=== PATIENT | female | born 1945 | race Two or more races ===

== ENCOUNTER 2020-06-12 08:34 | Outpatient (REF) | payer MEDICARE, SELFPAY ==
--- NOTE | 2020-06-12 08:41 | MM_ITS ---
EXAMINATION: MM SCREENING DIGITAL BREAST TOMOSYNTHESIS, BILATERAL CLINICAL INFORMATION: Screening. Asymptomatic. The lifetime risk of breast cancer based on the Tyrer-Cuzick Model is 4%. COMPARISON: Mammography: 06/10/2019, 06/04/2018 TECHNIQUE: Digital breast tomosynthesis is performed in both the craniocaudal and mediolateral oblique views along with computer-aided detection (CAD). Synthesized 2D images are generated from the tomosynthesis. Additional left MLO view is provided. FINDINGS: There are scattered areas of fibroglandular density (ACR BI-RADS breast composition Category b). There are no significant masses, abnormal calcifications, or other abnormalities. Parenchymal pattern is similar to prior studies. No developing density. No significant changes. MM/MM tomosynthesis screening BI IMPRESSION: No mammographic evidence of malignancy. ASSESSMENT: BI-RADS 1: Negative RECOMMENDATION: Routine annual mammography screening. This patient's information was entered into a reminder system with a target due date for their next mammogram.
== END 2020-06-12 08:35 | disposition home or self-care (01) ==
LOC: HO.MAMMO 08:34
PROVIDERS: PCP Family Medicine; Visit Provider Obstetrics & Gynecology
DX: Z12.31 Encounter for screening mammogram for malignant neoplasm of breast (principal)
CPT/HCPCS: 77063; 77067

== ENCOUNTER 2021-09-25 07:48 | Outpatient (REF) | payer MEDICARE, SELFPAY ==
--- NOTE | ~2021-09-25 | MM_ITS ---
EXAMINATION: BONE DENSITOMETRY CLINICAL INDICATION: Menopause. COMPARISON: Previous BD dated 06/04/2018 and baseline BD dated 07/03/2007. TECHNIQUE: Using a [employer] DXA System (software version: 13.1) manufactured by [employer], dual-energy x-ray absorptiometry was performed of the lumbar spine and left hip. The images are of good technical quality. Summary results are attached. FINDINGS: AP SPINE L3-L4 (excluding L1 and L2): The data of L1-L4 has been changed to exclude the L1 and L2 vertebral bodies, because degenerative changes at these levels may cause overestimation of lumbar spine density. Current: BMD 1.049 g/cm2, Z-score 0.2, T-score -1.3, osteopenia, 5.8% decrease from previous, 9.3% decrease from baseline (<5% change is not significant). Prior: BMD 1.114 g/cm2. Baseline: BMD 1.157 g/cm2. LEFT FEMUR, NECK: Current: BMD 0.819 g/cm2, Z-score 0.1, T-score -1.6, osteopenia. Prior: BMD 0.836 g/cm2. Baseline: BMD 0.910 g/cm2. LEFT FEMUR, TOTAL: Current: BMD 0.879 g/cm2, Z-score 0.5, T-score -1.0, normal, 3.8% decrease from previous, 12.1% decrease from baseline (<5% change is not significant). Prior: BMD 0.914 g/cm2. Baseline: BMD 1.000 g/cm2. IDENTIFIED RISK FACTORS: Thiazide. Menopause. HISTORY OF FRACTURE: None listed. MEDICATIONS: Calcium supplement and/or multivitamin. Vitamin D. MM/XR DEXA axial skeleton IMPRESSION: 1. DIAGNOSIS: Osteopenia based on the lowest T-score value of -1.6 in the femoral neck applying World Health Organization criteria. 2. 10-YEAR FRACTURE RISK PREDICTION, FRAX: Major osteoporotic fracture (clinical spine, forearm, hip or shoulder) 6.3%. Hip fracture 1.3%. 3. Treatment Recommendations: NOF guidelines recommend consideration for treatment in postmenopausal women and men age 50 and older presenting with the following: -A hip or vertebral (clinical or morphometric) fracture. -T-score less than or equal to -2.5 at the femoral neck or spine after appropriate evaluation to exclude secondary causes. -Low bone mass at the hip or spine and a 10-year fracture probability by FRAX of greater than or equal to 3% for hip fracture or greater than or equal to 20% for major osteoporotic fracture based on the [place] adapted WHO algorithm. 4. Other Recommendations: All treatment decisions require clinical judgment and consideration of individual patient factors, including patient preferences, comorbidities, previous drug use, risk factors not captured in the FRAX model (e.g. frailty, falls, vitamin D deficiency, increased bone turnover, interval significant decline in bone density) and possible under or overestimation of fracture risk by FRAX. Additional medical evaluation for secondary cause of low bone mineral density may be appropriate. FUTURE SCAN RECOMMENDATION: People with diagnosed cases of osteoporosis or at high risk for fracture should have regular bone mineral density tests. For patients eligible for Medicare, routine testing is allowed once every 2 years. The testing frequency can be increased to one year for patients who have rapidly progressing disease, those who are receiving or discontinuing medical therapy to restore bone mass, or have additional risk factors.
--- NOTE | ~2021-09-25 | MM_ITS ---
EXAMINATION: MM SCREENING DIGITAL BREAST TOMOSYNTHESIS, BILATERAL CLINICAL INFORMATION: Screening. Asymptomatic. The lifetime risk of breast cancer based on the Tyrer-Cuzick Model is under 2%. COMPARISON: Mammography: 06/12/2020, 06/10/2019, 06/04/2018 TECHNIQUE: Digital breast tomosynthesis is performed in both the craniocaudal and mediolateral oblique views along with computer-aided detection (CAD). Synthesized 2D images are generated from the tomosynthesis. FINDINGS: There are scattered areas of fibroglandular density (ACR BI-RADS breast composition Category b). There are no significant masses, abnormal calcifications, or other abnormalities. Parenchymal pattern is similar to prior studies. There is no developing density or architectural abnormality. The axilla and skin contours are unremarkable. No significant changes. MM/MM tomosynthesis screening BI IMPRESSION: No mammographic evidence of malignancy. ASSESSMENT: BI-RADS 1: Negative RECOMMENDATION: Routine annual mammography screening. This patient's information was entered into a reminder system with a target due date for their next mammogram.
== END 2021-09-25 07:49 | disposition home or self-care (01) ==
LOC: HO.MAMMO 07:48
PROVIDERS: PCP Nurse Practitioner Primary Care; Visit Provider Nurse Practitioner Primary Care
DX: Z12.31 Encounter for screening mammogram for malignant neoplasm of breast (principal); Z78.0 Asymptomatic menopausal state; M85.80 Other specified disorders of bone density and structure, unspecified site; Z79.899 Other long term (current) drug therapy
CPT/HCPCS: 77063; 77067; 77080

== ENCOUNTER 2021-11-30 13:30 | Emergency (ER) | payer OTHER, MEDICARE, SELFPAY ==
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
[2021-11-30 13:36] VITALS: BP 159/61; PULSE 84; RESP 17; TEMP 36.7; O2SAT 96; BMI 27.4
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
[2021-11-30] MEDS: Acetaminophen 325 MG TABLET 975 MG PO (15:05)
[2021-11-30] MEDS: Ibuprofen 400 MG TABLET PO (15:06)
== END 2021-11-30 16:31 | disposition home or self-care (01) ==
PROVIDERS: Emergency Provider Student in an Organized Health Care Education/Training Program; PCP Nurse Practitioner Primary Care
DX: Z04.1 Encounter for examination and observation following transport accident (principal); M25.511 Pain in right shoulder; M79.18 Myalgia, other site; M25.561 Pain in right knee; M25.562 Pain in left knee
CPT/HCPCS: 70450; 72125; 73030; 99282; 99284

== ENCOUNTER 2022-10-07 08:41 | Outpatient (REF) | payer MEDICARE, SELFPAY ==
--- NOTE | ~2022-10-07 | MM_ITS ---
EXAMINATION: MM SCREENING DIGITAL BREAST TOMOSYNTHESIS, BILATERAL CLINICAL INFORMATION: Screening. Asymptomatic. The lifetime risk of breast cancer based on the Tyrer-Cuzick Model is 1%. COMPARISON: Mammography: 09/25/2021, 06/12/2020, 06/10/2019 TECHNIQUE: Digital breast tomosynthesis is performed in both the craniocaudal and mediolateral oblique views along with computer-aided detection (CAD). Synthesized 2D images are generated from the tomosynthesis. Additional right MLO view is provided. FINDINGS: There are scattered areas of fibroglandular density (ACR BI-RADS breast composition Category b). There are no significant masses, abnormal calcifications, or other abnormalities. No architectural abnormality or developing density or significant change from prior studies. The axilla and skin contours are unremarkable. MM/MM tomosynthesis screening BI IMPRESSION: No mammographic evidence of malignancy. ASSESSMENT: BI-RADS 1: Negative RECOMMENDATION: Routine annual mammography screening. This patient's information was entered into a reminder system with a target due date for their next mammogram.
== END 2022-10-07 08:42 | disposition home or self-care (01) ==
LOC: HO.MAMMO 08:41
PROVIDERS: PCP Nurse Practitioner Primary Care; Visit Provider Nurse Practitioner Primary Care
DX: Z12.31 Encounter for screening mammogram for malignant neoplasm of breast (principal)
CPT/HCPCS: 77063; 77067

== ENCOUNTER 2023-06-05 10:39 | Outpatient (AMB) | payer MEDICARE, SELFPAY ==
--- NOTE | 2023-06-05 10:56 | A.OFFVIS_ITS ---
Intake Vital Signs 3 06/05/23 11:12 Height 5 ft 2 in Weight 146 lb 6.191 oz BMI 26.8 BP 130/60 Blood Pressure Location Lt brachial Position Sitting Pulse 86 Intake Visit Reasons: GERD, Adenomatous polyps Intake Note: Patient presents to in office visit today as a new patient for GERD. CC: Patient c/o GERD, heartburn, and constipation. Denies other GI symptoms today. Zoning Administrator Required: Yes Allergies No Known Allergies Allergy (Verified 06/05/23 11:14) NOT APPLICABLE HPI GERD, Adenomatous polyps 2 HPI0 Details 77-year-old female here for initial eval uation of GERD and history of colon polyps. She is referred by Mary Campo of [facility]. PMX Asthma Hypertension tremor Seizure disorder GERD History of tubular adenomas * SURGICAL HISTORY Abdominal surgery in youth Colonoscopy 2016 * ALLERGIES: NKDA * Labs supplied by PCP: 11/18/2022 hemoglobin A1c 5.5%. TSH 1.7 unremarkable renal panel, unremarkable hepatic, normal hemoglobin and hematocrit without a complete CBC 2016 scope-Hanson PROCEDURE IN DETAIL: Digital rectal exam revealed no specific lesion. Videocolonoscope was introduced without difficulty. It was navigated into the rectosigmoid sigmoid. There was mild redundancy in this area. The prep was good to excellent. Diffuse melanosis coli was noted. There were scattered diverticula in the sigmoid colon. Scope was advanced through descending to transverse colon. There was a polyp identified in the transverse colon, which was removed with excision and cold biopsy forceps. Scope continued to be advanced and was advanced through proximal transverse, hepatic flexure, and ascending colon, down into the cecal cap. Appendiceal orifice was seen. Ileocecal valve was well seen. No mucosal abnormalities were appreciated. Slow withdrawal of the scope, there was a 0.6 to 1 cm flat polyp identified in the folds of the hepatic flexure. This was initially endomarked with slight lift of the polyp, removed with small hexagonal clip. Erbe cautery was used. Polyp specimen was retrieved. There was re-apposition of the mucosal base of the polyp with use of resolution clip with a twist maneuver. The area was clean. The scope continued to be withdrawn. Anorectal verge was clear. GENERAL IMPRESSION: 1. Colonic polyps. 2. Diverticulosis. 3. Changes consistent with melanosis col i. PLAN: The patient will be re-seen back in our office in approximately 4 weeks. Repeat colon cancer screening in this patient should be 5 years. Antonio Hanson MD cc: MAYCOL EDWARDS NP 03/13/ 03/13/17 Received: 03/13/17 0 Submitted by: ANTONIO EDOUARD MD MATERIAL RECEIVED: 0 A. PROXIMAL TRANSV ERSE COLON POLYP B. POLYP AT HEPATI C FLEXURE -- DIAGNOSIS A. FRAGMENTS OF T UBULAR ADENOMA. B. FRAGMENTS OF T UBULAR ADENOMA. TODAY'S VISIT Citizen [place] #Denis Ospina She is here with a female friend who is quiet. She tells me that she is here to check my acid reflex. She is on nexium 20mg qd and takes it every day, but finds that if she eats she needs to take another 1 and then she will run out have to buy it [id number]. This is how her heartburn has been over the years and she does not feel like it has worsened recently. She has not gained or lost weight per her report in fact, looking at the record it looks like she might have lost 10 lb since 2017. She has never been educated about GERD diet and lifestyle changes that need to occur her to best manage it and I will print her a food list from the clinical nutrition source. To start will get H pylori stool in a barium swallow to evaluate if there is any physiologic reason why we need to do an upper endoscopy. She says she has had an upper endoscopy in the past but I can not find 1 anywhere on record. I will order an EGD/colonoscopy, a barium swallow and an HP stool nd increase the esompearozle to 40mg qd. She had no problems wtih the prep or procedure in 2017. There are no prior problems with anesthesia or sedation. Her asthma is well controlled as is her seizure disorder and she denies any cardiac problems. No ID problems. Her parents of CRC and she has a hx of TA. ROV 6 weeks to eval med changes. [facility] Surgical History (Updated 06/05/23 @ 12:24 by JOSIAH Durant) H/O abdominal surgery H/O colonoscopy Social History Patient Tobacco Use Status: Never used Tobacco Review of Systems Const Denies fatigue, Denies fever(s), Denies night sweats, Denies poor appetite and Denies weight loss Eyes Details: glasses Reports requires corrective lenses ENT Reports Normal hearing present, Denies dental pain, Denies dysphagia, Denies hearing loss, Denies mouth pain, Denies odynophagia, Denies throat swelling, Denies tongue swelling and Reports other (Dentition adequate) Card Reports no additional complaints Resp Reports no additional complaints GI Denies abdominal pain, Denies melena, Denies bloating, Denies hematochezia, Reports constipation, Denies GI cramping, Denies dysphagia, Denies excessive flatus, Denies early satiety, Reports heartburn, Denies diarrhea, Denies nausea, Denies odynophagia, Denies vomiting and Denies hematemesis Musc Reports back pain Skin/Breast Denies pruritus, Denies lesions, Denies rash and Denies jaundice Neuro Reports Normal hearing present, Denies Abnormal speech present and Reports convulsions Endo Denies fatigue Aller/Immun Reports seasonal rhinorrhea, Denies throat swelling and Denies tongue swelling Physical Exam Vital Signs: Last Vital Signs Pulse 86 06/05/23 11:12 BP 130/60 06/05/23 11:12 BMI result Body Mass Index 26.8 Const General: cooperative, no acute distress, well developed and well groomed Nutritional Appearance: well nourished and obese Orientation/consciousness: oriented to person, oriented to place and oriented to time Limitations: language barrier HEENT Head: Yes normocephalic and Yes atraumatic Eyes General: appearance normal, both eyes and all related structures Pupils: Equal, round and reactive pupils present Neck Neck: Yes normal visual inspection and Yes no lymphadenopathy Thyroid: Thyroid normal Resp Effort & Inspection: normal respiratory effort and able to speak in complete sentences Auscultation: clear to auscultation bilaterally Cardio Rate: regular rate Rhythm: regular rhythm Heart sounds: Normal, physiologic split S2 sound present Peripheral pulses: radial pulses present and posterior tibial pulses present GI Inspection: No distended, Yes Abdominal panniculus present, Yes obesity and Yes striae Palpation (GI): Soft to palpation, nontender, no guarding, not rigid and No hepatosplenomegaly present Percussion: Yes normal to percussion Auscultation: normal bowel sounds Rectal Exam - Female: deferred Abdomen image: 2 1. old surgical scar Skin General skin exam: no rashes or lesions noted, turgor normal, skin not dry, no jaundice, No spider nevi and no striae Rashes: no rashes Nails: normal Neuro General: oriented to person, oriented to place and oriented to time Cranial nerves: Yes Equal, round and reactive pupils present and Yes Normal hearing present Speech: No Abnormal speech present Extrem General: Yes normal to inspection, No clubbing, No cyanosis and No edema Psych Appearance: grossly normal and well kempt Mental Status: mental status grossly normal Speech and movement: Normal speech and movement present Affect: normal affect Attitude: cooperative Thought process: Normal thought process present and not confabulating Thought content: Normal thought content present Insight: Limited insight present (Psych) Judgement: Limited judgement present (Psych) Assessment & Plan Assessment & Plan (1) Tubular adenoma of colon: Comment: 2017 scope= 2 TA is repeat in 5 years Code(s): D12.6 - Benign neoplasm of colon, unspecified Plan: Citizen [place] #Anai, Live She is here with a female friend who is quiet. She tells me that she is here to check my acid reflex. She is on nexium 20mg qd and takes it every day, but finds that if she eats she needs to take another 1 and then she will run out have to buy it [id number]. This is how her heartburn has been over the years and she does not feel like it has worsened recently. She has not gained or lost weight per her report in fact, looking at the record it looks like she might have lost 10 lb since 2017. She has never been educated about GERD diet and lifestyle changes that need to occur her to best manage it and I will print her a food list from the clinical nutrition source. To start will get H pylori stool in a barium swallow to evaluate if there is any physiologic reason why we need to do an upper endoscopy. She says she has had an upper endoscopy in the past but I can not find 1 anywhere on record. I will order an EGD/colonoscopy, a barium swallow and an HP stool nd increase the esompearozle to 40mg qd. She had no problems wtih the prep or procedure in 2017. There are no prior problems with anesthesia or sedation. Her asthma is well controlled as is her seizure disorder and she denies any cardiac problems. No ID problems. Her parents of CRC and she has a hx of TA. ROV 6 weeks to eval med changes. (2) Chronic idiopathic constipation: Code(s): K59.04 - Chronic idiopathic constipation (3) GERD (gastroesophageal reflux disease): Code(s): K21.9 - Gastro-esophageal reflux disease without esophagitis (4) Pre-op examination: Code(s): Z01.818 - Encounter for other preprocedural examination (5) Seizure disorder: Code(s): G40.909 - Epilepsy, unspecified, not intractable, without status epilepticus (6) Asthma: Code(s): J45.909 - Unspecified asthma, uncomplicated Plan Citizen [place] #Anai, Live She is here with a female friend who is quiet. She tells me that she is here to check my acid reflex. She is on nexium 20mg qd and takes it every day, but finds that if she eats she needs to take another 1 and then she will run out have to buy it [id number]. This is how her heartburn has been over the years and she does not feel like it has worsened recently. She has not gained or lost weight per her report in fact, looking at the record it looks like she might have lost 10 lb since 2017. She has never been educated about GERD diet and lifestyle changes that need to occur her to best manage it and I will print her a food list from the clinical nutrition source. To start will get H pylori stool in a barium swallow to evaluate if there is any physiologic reason why we need to do an upper endoscopy. She says she has had an upper endoscopy in the past but I can not find 1 anywhere on record. I will order an EGD/colonoscopy, a barium swallow and an HP stool nd increase the esompearozle to 40mg qd. She had no problems wtih the prep or procedure in 2017. There are no prior problems with anesthesia or sedation. Her asthma is well controlled as is her seizure disorder and she denies any cardiac problems. No ID problems. Her parents of CRC and she has a hx of TA. ROV 6 weeks to eval med changes. Orders: Orders 2 H pylori Ag Stool Today K21.9 - Gastro-esophageal reflux disease without esophagitis EGD/[place] Combo - GI Use Only Today K21.9 - Gastro-esophageal reflux disease without esophagitis [place] barium swallow Today K21.9 - Gastro-esophageal reflux disease without esophagitis Medications: New 2 peg 3350-electrolytes 236-22.74-6.74 -5.86 gram (Golytely) until fecal effluent is clear; do not exceed a total volume of 2,000 mL 240 mL PO Q10M 1 day 4,000 mL 0RF Z12.11 - Encounter for screening for malignant neoplasm of colon bisacodyl (Dulcolax (bisacodyl)) colonoscopy prep 10 mg (2 x 5 mg) PO BEDTIME 2 days 4 tabs 0RF esomeprazole magnesium 40 mg PO DAILY 30 caps 6RF K21.9 - Gastro-esophageal reflux disease without esophagitis sennosides (Senna Laxative) 17.2 mg (2 x 8.6 mg) PO BEDTIME 60 tabs 6RF K59.04 - Chronic idiopathic constipation Coding Level of Care Code New Pt Level 3 (67642) Diagnoses Tubular adenoma of colon D12.6 Chronic idiopathic constipation K59.04 GERD (gastroesophageal reflux disease) K21.9 Pre-op examination Z01.818 Seizure disorder G40.909 Asthma J45.909
[2023-06-05 11:12] VITALS: BP 130/60; PULSE 86; BMI 26.8
== END 2023-06-05 12:09 | disposition home or self-care (01) ==
PROVIDERS: PCP Nurse Practitioner Primary Care; Visit Provider Nurse Practitioner
DX: D12.6 Benign neoplasm of colon, unspecified (principal); K59.04 Chronic idiopathic constipation; K21.9 Gastro-esophageal reflux disease without esophagitis; Z01.818 Encounter for other preprocedural examination; G40.909 Epilepsy, unspecified, not intractable, without status epilepticus; J45.909 Unspecified asthma, uncomplicated
CPT/HCPCS: 99203

== ENCOUNTER → 2023-06-05 10:39 | Outpatient (BNVA) | payer MEDICARE, SELFPAY | PROVIDERS: PCP Nurse Practitioner Primary Care; Visit Provider Nurse Practitioner | DX: Z01.818 Encounter for other preprocedural examination (principal); K21.9 Gastro-esophageal reflux disease without esophagitis; K59.04 Chronic idiopathic constipation; D12.6 Benign neoplasm of colon, unspecified; J45.909 Unspecified asthma, uncomplicated; G40.909 Epilepsy, unspecified, not intractable, without status epilepticus | CPT/HCPCS: 99202 ==

== ENCOUNTER 2023-06-19 10:52 | Outpatient (REF) | payer MEDICARE, SELFPAY | END 2023-06-19 10:53 | disposition home or self-care (01) | LOC: HO.LNP 10:52 | PROVIDERS: Visit Provider Nurse Practitioner | DX: K21.9 Gastro-esophageal reflux disease without esophagitis (principal) | CPT/HCPCS: 87338 ==

== ENCOUNTER 2023-08-13 08:33 | Outpatient (AMB) | payer MEDICARE, SELFPAY ==
[2023-08-13 08:40] VITALS: BP 159/70; PULSE 83; BMI 26.6
--- NOTE | 2023-08-13 08:40 | A.OFFVIS_ITS ---
Intake Vital Signs 08/13/23 08:40 Height 5 ft 2 in Weight 145 lb 8.081 oz BMI 26.6 BP 159/70 H Blood Pressure Location Lt brachial Position Sitting Pulse 83 Intake Visit Reasons: follow up H pylori Intake Note: Patient presents to in office visit today as a new patient for GERD. CC: Patient reports she has been doing better. Denies other GI symptoms today. 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 She tells me that she is here to check my acid reflex. She is on nexium 20mg qd and takes it every day, but finds that if she eats she needs to take another 1 and then she will run out have to buy it [id number]. This is how her heartburn has been over the years and she does not feel like it has worsened recently. She has not gained or lost weight per her report in fact, looking at the record it looks like she might have lost 10 lb since 2017. She has never been educated about GERD diet and lifestyle changes that need to occur her to best manage it and I will print her a food list from the clinical nutrition source. To start will get H pylori stool in a barium swallow to evaluate if there is any physiologic reason why we need to do an upper endoscopy. She says she has had an upper endoscopy in the past but I can not find 1 anywhere on record. I will order an EGD/colonoscopy, a barium swallow and an HP stool nd increase the esompearozle to 40mg qd. She had no problems wtih the prep or procedure in 2017. There are no prior problems with anesthesia or sedation. Her asthma is well controlled as is her seizure disorder and she denies any cardiac problems. No ID problems. Her parents of CRC and she has a hx of TA. ROV 6 weeks to eval med changes. (2) Chronic idiopathic constipation: Code(s): K59.04 - Chronic idiopathic constipation (3) GERD (gastroesophageal reflux diseas e): Code(s): K21.9 - Gastro-esophageal reflux disease without esophagitis (4) Pre-op examination: Code(s): Z01.818 - Encounter for other preprocedural examination (5) Seizure disorder: Code(s): G40.909 - Epilepsy, unspecified, not intractable, without status epilepticus (6) Asthma: Code(s): J45.909 - Unspecified asthma, uncomplicated Plan [place] #Anai, Live She is here with a female friend who is quiet. She tells me that she is here to check my acid reflex. She is on nexium 20mg qd and takes it every day, but finds that if she eats she needs to take another 1 and then she will run out have to buy it [id number]. This is how her heartburn has been over the years and she does not feel like it has worsened recently. She has not gained or lost weight per her report in fact, looking at the record it looks like she might have lost 10 lb since 2017. She has never been educated about GERD diet and lifestyle changes that need to occur her to best manage it and I will print her a food list from the clinical nutrition source. To start will get H pylori stool in a barium swallow to evaluate if there is any physiologic reason why we need to do an upper endoscopy. She says she has had an upper endoscopy in the past but I can not find 1 anywhere on record. I will order an EGD/colonoscopy, a barium swallow and an HP stool nd increase the esompearozle to 40mg qd. She had no problems with the prep or procedure in 2017. There are no prior problems with anesthesia or sedation. Her asthma is well controlled as is her seizure disorder and she denies any cardiac problems. No ID problems. Her parents of CRC and she has a hx of TA. ROV 6 weeks to eval med changes. Orders: Orders H pylori Ag Stool Today K21.9 - Gastro-eso phageal reflux dis ease without esoph agitis EGD/[place] Combo - G I Use Only Today K21.9 - Gastro-eso phageal reflux dis ease without esoph agitis [place] barium swallow Today K21.9 - Gastro-eso phageal reflux dis ease without esoph agitis Medications: New peg 3350-electroly ronald 236-22.74-6.74 -5.86 gram (Golyt linsey) until feca l effluent is kasey r; do not exceed a total volume of 2 ,000 mL 240 mL PO Q10M 1 day 4,000 mL 0RF Z12.11 - Encounter for screening for malignant neoplas m of colon bisacodyl (Dulcola x (bisacodyl)) colonoscopy prep 10 mg (2 x 5 mg) P O BEDTIME 2 days 4 tabs 0RF esomeprazole magne sium 40 mg PO DAILY 30 caps 6RF K21.9 - Gastro-eso phageal reflux dis ease without esoph agitis sennosides (Senna Laxative) 17.2 mg (2 x 8.6 m g) PO BEDTIME 60 t abs 6RF K59.04 - Chronic i diopathic constipa tion LABS: Laboratory Tests 06/19/23 09:30 Stool H. pylori Ag positive EGD/COLONOSCOPY Scheduled for end october BIOPSY BARIUM SWALLOW Scheduled for 08/28/2023 TODAY'S VISIT [place] #Marni Barrios She is here today with a female family member who is quiet but supportive. Quadruple therapy was sent 07/01/2023 after the H pylori came back positive. She received the abx and completed them > 2 weeks ago. She says her GERD has improved a little bit. She tolerated the abx well. She is aware of the barium swallow in July but has not been contacted yet, per her report, for the EGD/colonoscopy. I verify their phone is correct because we have several messages saying we attempted to call her and she did not return our call. There was also a letter sent but apparently they are having trouble with the mail delivery where she lives. I will Walker down to the schedulers to get this set up. ROV after barium swallow . [facility] Surgical History H/O abdominal surgery H/O colonoscopy Social History Patient Tobacco Use Status: Never used Tobacco Review of Systems Const Denies fatigue, Denies fever(s), Denies night sweats, Denies poor appetite and Denies weight loss Eyes Details: glasses Reports requires corrective lenses ENT Reports Normal hearing present, Denies dental pain, Denies dysphagia, Denies hearing loss, Denies mouth pain, Denies odynophagia, Denies throat swelling, Denies tongue swelling and Reports other (Dentition adequate) Card Reports no additional complaints Resp Reports no additional complaints GI Details: Denies abdominal pain, Denies melena, Denies bloating, Denies hematochezia, Denies constipation, Denies GI cramping, Denies dysphagia, Denies excessive flatus, Denies early satiety, Reports heartburn, Denies diarrhea, Denies nausea, Denies odynophagia, Denies vomiting and Denies hematemesis Skin/Breast Denies pruritus, Denies lesions, Denies rash and Denies jaundice Neuro Reports Normal hearing present and Denies Abnormal speech present Endo Denies fatigue Aller/Immun Denies throat swelling and Denies tongue swelling Physical Exam Vital Signs: Last Vital Signs Pulse 83 08/13/23 08:40 BP 159/70 H 08/13/23 08:40 BMI result Body Mass Index 26.6 Const General: cooperative, no acute distress, well developed and well groomed Nutritional Appearance: average body habitus and well nourished Orientation/consciousness: oriented to person, oriented to place and oriented to time Limitations: language barrier HEENT Head: Yes normocephalic and Yes atraumatic Eyes General: appearance normal, both eyes and all related structures Pupils: Equal, round and reactive pupils present Neck Neck: Yes normal visual inspection and Yes no lymphadenopathy Thyroid: Thyroid normal Resp Effort & Inspection: normal respiratory effort and able to speak in complete sentences Auscultation: clear to auscultation bilaterally Cardio Rate: regular rate Rhythm: regular rhythm Heart sounds: Normal, physiologic split S2 sound present Peripheral pulses: radial pulses present and posterior tibial pulses present GI Inspection: No distended and No Abdominal panniculus present Palpation (GI): Soft to palpation, nontender, no guarding, not rigid and No hepatosplenomegaly present Percussion: Yes normal to percussion Auscultation: normal bowel sounds Rectal Exam - Female: deferred Skin General skin exam: no rashes or lesions noted, turgor normal, skin not dry, no jaundice, No spider nevi and no striae Rashes: no rashes Nails: normal Neuro General: oriented to person, oriented to place and oriented to time Cranial nerves: Yes Equal, round and reactive pupils present and Yes Normal hearing present Speech: No Abnormal speech present Extrem General: Yes normal to inspection, No clubbing, No cyanosis and No edema Psych Appearance: grossly normal and well kempt Mental Status: mental status grossly normal Speech and movement: Normal speech and movement present Affect: normal affect Attitude: cooperative Thought process: Normal thought process present and not confabulating Thought content: Normal thought content present Insight: Limited insight present (Psych) Judgement: Limited judgement present (Psych) Assessment & Plan Assessment & Plan (1) H. pylori infection: Code(s): A04.8 - Other specified bacterial intestinal infections (2) Chronic idiopathic constipation: Code(s): K59.04 - Chronic idiopathic constipation (3) Tubular adenoma of colon: Comment: 2016 scope= 2 TA is repeat in 5 years Code(s): D12.6 - Benign neoplasm of colon, unspecified (4) GERD (gastroesophageal reflux disease): Code(s): K21.9 - Gastro-esophageal reflux disease without esophagitis Plan EGD/COLONOSCOPY Scheduled for end october BIOPSY BARIUM SWALLOW Scheduled for 08/28/2023 TODAY'S VISIT [place] #Marni Barrios She is here today with a female family member who is quiet but supportive. Quadruple therapy was sent 07/01/2023 after the H pylori came back positive. She received the abx and completed them > 2 weeks ago. She says her GERD has improved a little bit. She tolerated the abx well. She is aware of the barium swallow in July but has not been contacted yet, per her report, for the EGD/colonoscopy. I verify their phone is correct because we have several messages saying we attempted to call her and she did not return our call. There was also a letter sent but apparently they are having trouble with the mail delivery where she lives. I will Walker down to the schedulers to get this set up. ROV after barium swallow . Orders: Orders H pylori Ag Stool Today A04.8 - Other specified bacterial intestinal infections, K59.04 - Chronic idiopathic constipation Coding Level of Care Code Est Pt Level 3 (71524) Diagnoses H. pylori infection A04.8 Chronic idiopathic constipation K59.04 Tubular adenoma of colon D12.6 GERD (gastroesophageal reflux disease) K21.9
== END 2023-08-13 09:28 | disposition home or self-care (01) ==
PROVIDERS: PCP Nurse Practitioner Primary Care; Visit Provider Nurse Practitioner
DX: A04.8 Other specified bacterial intestinal infections (principal); K59.04 Chronic idiopathic constipation; D12.6 Benign neoplasm of colon, unspecified; K21.9 Gastro-esophageal reflux disease without esophagitis
CPT/HCPCS: 99213

== ENCOUNTER → 2023-08-13 08:33 | Outpatient (BNVA) | payer MEDICARE, SELFPAY | PROVIDERS: PCP Nurse Practitioner Primary Care; Visit Provider Nurse Practitioner | DX: K21.9 Gastro-esophageal reflux disease without esophagitis (principal); K59.04 Chronic idiopathic constipation; D12.6 Benign neoplasm of colon, unspecified; A04.8 Other specified bacterial intestinal infections | CPT/HCPCS: 99212 ==

== ENCOUNTER 2023-08-19 10:50 | Outpatient (REF) | payer MEDICARE, SELFPAY | END 2023-08-19 10:51 | disposition home or self-care (01) | LOC: HO.LNP 10:50 | PROVIDERS: Visit Provider Nurse Practitioner | DX: A04.8 Other specified bacterial intestinal infections (principal); K59.04 Chronic idiopathic constipation | CPT/HCPCS: 87338 ==

== ENCOUNTER 2023-08-28 08:15 | Outpatient (REF) | payer MEDICARE, SELFPAY | END 2023-08-28 08:16 | disposition home or self-care (01) | LOC: HO.XRAY 08:15 | PROVIDERS: PCP Nurse Practitioner Primary Care; Visit Provider Nurse Practitioner | DX: Z13.89 Encounter for screening for other disorder (principal) ==

== ENCOUNTER 2023-10-28 09:07 | Outpatient (REF) | payer MEDICARE, SELFPAY ==
--- NOTE | ~2023-10-28 | FL_ITS ---
EXAMINATION: XR FLUOROSCOPY UPPER GI WITH AIR CLINICAL INFORMATION: Reflux COMPARISON: None TECHNIQUE: Fluoroscopic air contrast upper GI examination was performed utilizing standard techniques with thin and thick barium and effervescent granules. Numerous spot images were obtained. FINDINGS: Imaging of the oropharynx and hypopharynx demonstrate normal swallow mechanism with normal epiglottic inversion and soft palate elevation. No tracheal penetration, glottic or subglottic aspiration identified. Minimal nasopharyngeal reflux present. Hypopharyngeal structures appear normal without evidence of mass or diverticulum. There was no significant cricopharyngeal achalasia. Dual and single contrast images of the esophagus demonstrate a mildly patulous esophagus. No masses or strictures are noted. Within the mid esophagus, there is a focal area of contrast pooling suspicious for a tiny ulceration (RF 1-3, image 40). A wide open, nonobstructing, Schatzki's ring is present. There is to and fro motion of the barium column with nonpropulsive tertiary contractions noted throughout the entire esophagus. A moderate-sized type I hiatal hernia is present. Gastroesophageal reflux is seen up to the thoracic inlet. Dual contrast and single contrast images of the stomach demonstrated a normal contour. The gastric rugal folds have a thickened appearance. No masses or ulcerations are seen. Contrast freely passed into the gastric antrum and duodenal bulb without delay. Single and air-contrast images of the duodenal bulb demonstrate no abnormality. The duodenal sweep has a normal appearance, course, and mucosal fold appearance. No malrotation. The imaged proximal jejunum has a normal fold pattern and caliber. FLUOROSCOPY TIME: 3 minutes 40 seconds Number of Spot Images: 11 Number of Cine: 11 DOSE AREA PRODUCT: 2325 uGy-m2 (microgray-meter squared) FL/FL barium swallow with air IMPRESSION: 1. Mildly patulous esophagus. To and fro motion of the barium column with nonpropulsive tertiary contractions noted throughout the esophagus. These findings are consistent with esophageal dysmotility. 2. Wide open, nonobstructing, Schatzki's ring. 3. Moderate-sized type I hiatal hernia. 4. Moderate gastroesophageal reflux. 5. Thickened gastric rugal folds likely representing gastritis. 6. Possible subtle superficial ulceration are in the mid esophagus. This procedure was performed by Alexander Ragland PA-C, and supervised by Dr. Vora
== END 2023-10-28 09:08 | disposition home or self-care (01) ==
LOC: HO.XRAY 09:07
PROVIDERS: PCP Nurse Practitioner Primary Care; Visit Provider Nurse Practitioner
DX: K21.9 Gastro-esophageal reflux disease without esophagitis (principal)
CPT/HCPCS: 74221

== ENCOUNTER → 2023-10-28 09:08 | Outpatient (BNV) | payer MEDICARE, SELFPAY | PROVIDERS: PCP Nurse Practitioner Primary Care; Visit Provider Physician Assistant Surgical | DX: K21.9 Gastro-esophageal reflux disease without esophagitis (principal) | CPT/HCPCS: 74246 ==

== ENCOUNTER 2023-11-05 07:57 | Outpatient (AMB) | payer MEDICARE, SELFPAY ==
--- NOTE | 2023-11-05 07:59 | A.OFFVIS_ITS ---
Vital Signs 11/05/23 08:00 Height 5 ft 2 in Weight 145 lb 8.081 oz BMI 26.6 BP 143/59 H Blood Pressure Location Lt brachial Position Sitting Pulse 84 Intake Visit Reasons: Barium Swallow f/u Intake Note: Cindy presents in the office as a follow up BA swallow. CC: She states that she is not having any concerns today. Export Sales Assistant Required: Yes Export Sales Assistant Name: Sam [id number] Allergies No Known Allergies Allergy (Verified 11/05/23 08:02) NOT APPLICABLE HPI HPI Barium Swallow f/u: Details: Assessment & Plan (1) H. pylori infection: Code(s): A04.8 - Other specified bacterial intestinal infections (2) Chronic idiopathic constipation: Code(s): K59.04 - Chronic idiopathic constipation (3) Tubular adenoma of colon: Comment: 2016 scope= 2 TA is repeat in 5 years Code(s): D12.6 - Benign neoplasm of colon, unspecified (4) GERD (gastroesophageal reflux disease): Code(s): K21.9 - Gastro-esophageal reflux disease without esophagitis Plan [place] #[employer]arni Live She is here today with a female family member who is quiet but supportive. Quadruple therapy was sent 07/01/2023 after the H pylori came back positive. She received the abx and completed them > 2 weeks ago. She says her GERD has improved a little bit. She tolerated the abx well. She is aware of the barium swallow in July but has not been contacted yet, per her report, for the EGD/colonoscopy. I verify their phone is correct because we have several messages saying we attempted to call her and she did not return our call. There was also a letter sent but apparently they are having trouble with the mail delivery where she lives. I will Walker down to the schedulers to get this set up. ROV after barium swallow . Orders: Orders H pylori Ag Stool Today A04.8 - Other specified bacterial intestinal infections, K59.04 - Chronic idiopathic constipation Laboratory Tests 08/19/23 08:00 Stool H. pylori Ag positive EGD/COLONOSCOPY scheduled for 11/26/2023 BIOPSY BARIUM SWALLOW 10/29/23 FINDINGS: Imaging of the oropharynx and hypopharynx demonstrate normal swallow mechanism with normal epiglottic inversion and soft palate elevation. No tracheal penetration, glottic or subglottic aspiration identified. Minimal nasopharyngeal reflux present. Hypopharyngeal structures appear normal without evidence of mass or diverticulum. There was no significant cricopharyngeal achalasia. Dual and single contrast images of the esophagus demonstrate a mildly patulous esophagus. No masses or strictures are noted. Within the mid esophagus, there is a focal area of contrast pooling suspicious for a tiny ulceration (RF 1-3, image 40). A wide open, nonobstructing, Schatzki's ring is present. There is to and fro motion of the barium column with nonpropulsive tertiary contractions noted throughout the entire esophagus. A moderate-sized type I hiatal hernia is present. Gastroesophageal reflux is seen up to the thoracic inlet. Dual contrast and single contrast images of the stomach demonstrated a normal contour. The gastric rugal folds have a thickened appearance. No masses or ulcerations are seen. Contrast freely passed into the gastric antrum and duodenal bulb without delay. Single and air-contrast images of the duodenal bulb demonstrate no abnormality. The duodenal sweep has a normal appearance, course, and mucosal fold appearance. No malrotation. The imaged proximal jejunum has a normal fold pattern and caliber. FLUOROSCOPY TIME: 3 minutes 40 seconds Number of Spot Images: 11 Number of Cine: 11 DOSE AREA PRODUCT: 2325 uGy-m2 (microgray-meter squared) FL/FL barium swallow with air IMPRESSION: 1. Mildly patulous esophagus. To and fro motion of the barium column with nonpropulsive tertiary contractions noted throughout the esophagus. These findings are consistent with esophageal dysmotility. 2. Wide open, nonobstructing, Schatzki's ring. 3. Moderate-sized type I hiatal hernia. 4. Moderate gastroesophageal reflux. 5. Thickened gastric rugal folds likely representing gastritis. 6. Possible subtle superficial ulceration are in the mid esophagus. TODAY'S VISIT [place] #Marni Live She continues to have epigastric pain and HB and and itching sensation in her throat. We review the barium swallow and I inform her that the HP was not cured despite quadruple therapy. The barium swallow does show a possible esophageal stricture along with a moderate sized hiatal hernia along with some non propulsive esophageal peristalsis along most of the esophagus. She is agreeable to retreating the H pylori with Levaquin and amoxicillin therapy. She is also advised take a probiotic. She continues on as omeprazole in the morning and famotidine at night. Keep 12/08v appt after EGD/colonoscopy FORMERLY [facility], [facility]1983 Surgical History H/O abdominal surgery H/O colonoscopy Social History Patient Tobacco Use Status: Never used Tobacco Review of Systems Const Denies fatigue, Denies fever(s), Denies night sweats, Denies poor appetite and Denies weight loss Eyes Details: glasses Reports requires corrective lenses ENT Reports Normal hearing present, Denies dental pain, Reports dysphagia, Denies hearing loss, Denies mouth pain, Denies odynophagia, Denies throat swelling, Denies tongue swelling and Reports other (Dentition adequate) Card Reports no additional complaints Resp Reports no additional complaints GI Details: Denies abdominal pain, Denies melena, Denies bloating, Denies hematochezia, Denies constipation, Denies GI cramping, Reports dysphagia, Denies excessive flatus, Denies early satiety, Reports dyspepsia, Reports heartburn, Denies diarrhea, Denies nausea, Denies odynophagia, Denies vomiting and Denies hematemesis Skin/Breast Denies pruritus, Denies lesions, Denies rash and Denies jaundice Neuro Reports Normal hearing present and Denies Abnormal speech present Endo Denies fatigue Aller/Immun Denies throat swelling and Denies tongue swelling Physical Exam Vital Signs: Last Vital Signs Pulse 84 11/05/23 08:00 BP 143/59 H 11/05/23 08:00 BMI result Body Mass Index 26.6 Const General: cooperative, no acute distress, well developed and well groomed Nutritional Appearance: average body habitus and well nourished Orientation/consciousness: oriented to person, oriented to place and oriented to time Limitations: language barrier HEENT Head: Yes normocephalic and Yes atraumatic Eyes General: appearance normal, both eyes and all related structures Pupils: Equal, round and reactive pupils present Neck Neck: Yes normal visual inspection and Yes no lymphadenopathy Thyroid: Thyroid normal Resp Effort & Inspection: normal respiratory effort and able to speak in complete sentences Auscultation: clear to auscultation bilaterally Cardio Rate: regular rate Rhythm: regular rhythm Heart sounds: Normal, physiologic split S2 sound present Peripheral pulses: radial pulses present and posterior tibial pulses present GI Inspection: No distended and No Abdominal panniculus present Palpation (GI): Soft to palpation, nontender, no guarding, not rigid and No hepatosplenomegaly present Percussion: Yes normal to percussion Auscultation: normal bowel sounds Rectal Exam - Female: deferred Skin General skin exam: no rashes or lesions noted, turgor normal, skin not dry, no jaundice, No spider nevi and no striae Rashes: no rashes Nails: normal Neuro General: oriented to person, oriented to place and oriented to time Cranial nerves: Yes Equal, round and reactive pupils present and Yes Normal hearing present Speech: No Abnormal speech present Extrem General: Yes normal to inspection, No clubbing, No cyanosis and No edema Psych Appearance: grossly normal and well kempt Mental Status: mental status grossly normal Speech and movement: Normal speech and movement present Affect: normal affect Attitude: cooperative Thought process: Normal thought process present and not confabulating Thought content: Normal thought content present Insight: Limited insight present (Psych) Judgement: Limited judgement present (Psych) Results Reviewed Results Reviewed: Laboratory Tests 08/19/23 08:00 Stool H. pylori Ag positive BARIUM SWALLOW 10/29/23 FINDINGS: Imaging of the oropharynx and hypopharynx demonstrate normal swallow mechanism with normal epiglottic inversion and soft palate elevation. No tracheal penetration, glottic or subglottic aspiration identified. Minimal nasopharyngeal reflux present. Hypopharyngeal structures appear normal without evidence of mass or diverticulum. There was no significant cricopharyngeal achalasia. Dual and single contrast images of the esophagus demonstrate a mildly patulous esophagus. No masses or strictures are noted. Within the mid esophagus, there is a focal area of contrast pooling suspicious for a tiny ulceration (RF 1-3, image 40). A wide open, nonobstructing, Schatzki's ring is present. There is to and fro motion of the barium column with nonpropulsive tertiary contractions noted throughout the entire esophagus. A moderate-sized type I hiatal hernia is present. Gastroesophageal reflux is seen up to the thoracic inlet. Dual contrast and single contrast images of the stomach demonstrated a normal contour. The gastric rugal folds have a thickened appearance. No masses or ulcerations are seen. Contrast freely passed into the gastric antrum and duodenal bulb without delay. Single and air-contrast images of the duodenal bulb demonstrate no abnormality. The duodenal sweep has a normal appearance, course, and mucosal fold appearance. No malrotation. The imaged proximal jejunum has a normal fold pattern and caliber. FLUOROSCOPY TIME: 3 minutes 40 seconds Number of Spot Images: 11 Number of Cine: 11 DOSE AREA PRODUCT: 2325 uGy-m2 (microgray-meter squared) FL/FL barium swallow with air IMPRESSION: 1. Mildly patulous esophagus. To and fro motion of the barium column with nonpropulsive tertiary contractions noted throughout the esophagus. These findings are consistent with esophageal dysmotility. 2. Wide open, nonobstructing, Schatzki's ring. 3. Moderate-sized type I hiatal hernia. 4. Moderate gastroesophageal reflux. 5. Thickened gastric rugal folds likely representing gastritis. 6. Possible subtle superficial ulceration are in the mid esophagus. Assessment & Plan Assessment & Plan (1) GERD (gastroesophageal reflux disease): Code(s): K21.9 - Gastro-esophageal reflux disease without esophagitis Category: Medical (2) Chronic idiopathic constipation: Code(s): K59.04 - Chronic idiopathic constipation Category: Medical (3) H. pylori infection: Comment: Failed quadruple therapy, now using Levaquin and amoxicillin Code(s): A04.8 - Other specified bacterial intestinal infections Category: Medical Plan [place] #Tachira Live She continues to have epigastric pain and HB and and itching sensation in her throat. We review the barium swallow and I inform her that the HP was not cured despite quadruple therapy. The barium swallow does show a possible esophageal stricture along with a moderate sized hiatal hernia along with some non propulsive esophageal peristalsis along most of the esophagus. She is agreeable to retreating the H pylori with Levaquin and amoxicillin therapy. She is also advised take a probiotic. She continues on as omeprazole in the morning and famotidine at night. Keep 6/11v appt after EGD/colonoscopy Medications: New amoxicillin 1,000 mg (2 x 500 mg) PO Q12H 56 caps 0RF 14 days levofloxacin 500 mg PO DAILY 14 tabs 0RF 14 days A04.8 - Other specified bacterial intestinal infections Coding Level of Care Code Est Pt Level 4 (68474) Diagnoses GERD (gastroesophageal reflux disease) K21.9 Chronic idiopathic constipation K59.04 H. pylori infection A04.8
[2023-11-05 08:00] VITALS: BP 143/59; PULSE 84; BMI 26.6
== END 2023-11-05 08:25 | disposition home or self-care (01) ==
PROVIDERS: PCP Nurse Practitioner Primary Care; Visit Provider Nurse Practitioner
DX: K21.9 Gastro-esophageal reflux disease without esophagitis (principal); K59.04 Chronic idiopathic constipation; A04.8 Other specified bacterial intestinal infections
CPT/HCPCS: 99214

== ENCOUNTER → 2023-11-05 07:57 | Outpatient (BNVA) | payer MEDICARE, SELFPAY | PROVIDERS: PCP Nurse Practitioner Primary Care; Visit Provider Nurse Practitioner | DX: K21.9 Gastro-esophageal reflux disease without esophagitis (principal); K59.04 Chronic idiopathic constipation; A04.8 Other specified bacterial intestinal infections | CPT/HCPCS: 99212 ==

== ENCOUNTER 2023-11-25 05:35 | Day surgery (SDC) | payer MEDICARE, SELFPAY ==
--- NOTE | 2023-11-20 12:14 | P.CONAN_ITS ---
Documented by User: Maryana Prado NP 11/20/23 12:15 HPI - Anesthesia Eval Consult details Narrative: 77yo F for Upper Endoscopy and Colonoscopy PMF Active Problems Active Problems: All Active Problems H. pylori infection (Acute) Lumbar degenerative disc disease (Acute) Chronic idiopathic constipation (Acute) Pre-op examination (Acute) Chronic back pain (Acute) Polyarthritis (Acute) Osteoporosis (Acute) Allergic rhinitis (Acute) High cholesterol (Acute) Tubular adenoma of colon (Acute) GERD (gastroesophageal reflux disease) (Acute) Seizure disorder (Acute) Tremor (Acute) Hypertension (Acute) Asthma (Acute) Past Medical History Medical History (Updated 11/20/23 @ 12:15 by Maryana Prado NP) Seizure disorder Hypertension Asthma GERD (gastroesophageal reflux disease) High cholesterol Polyarthritis Osteoporosis Surgical History Surgical History H/O abdominal surgery H/O colonoscopy Social History Social History Patient Tobacco Use Status: Never used Tobacco Use of substances other than those prescribed or required for medical reasons: No Are you DNR?: No Advance Directives: No Advance Directives Information Provided: Yes Meds Allergies Allergy/AdvReac Type Severity Reaction Status Date / Time No Known Allergies Allergy NOT Verified 11/05/23 08:02 APPLICABLE Home Medications ?Medication ?Instructions ?Recorded ?Confirmed ?Last Taken ?Type albuterol sulfate 90 mcg/actuation inhalation 06/05/23 Unknown History aerosol inhaler (Ventolin HFA) atorvastatin 40 mg tablet 40 mg PO DAILY PRN 06/05/23 Unknown History calcium carbonate 600 mg-vitamin 1 tab PO TID 06/05/23 Unknown History D3 10 mcg (400 unit) tablet fluticasone propionate 110 inhalation 06/05/23 Unknown History mcg/actuation HFA aerosol inhaler (Flovent HFA) losartan 50 mg tablet 75 mg PO DAILY 06/05/23 Unknown History aspirin 81 mg chewable tablet 1 tab PO QAM 08/13/23 Unknown History fluticasone furoate 100 1 inh inhalation DAILY 08/13/23 Unknown History mcg/actuation blister powder for inhalation (Arnuity Ellipta) Assessment and Plan Assessment Anesthesia Assessment: Chart Reviewed Documented by User: Pacheco Smart MD 11/25/23 07:20 [facility] Past Medical History Medical History (Updated 11/20/23 @ 12:15 by Maryana Prado NP) Seizure disorder Hypertension Asthma GERD (gastroesophageal reflux disease) High cholesterol Polyarthritis Osteoporosis Family History Family history of problems with anesthesia: No Surgical History Surgical History H/O abdominal surgery H/O colonoscopy History of Problems with Anesthesia: No Social History Social History Patient Tobacco Use Status: Never used Tobacco Use of substances other than those prescribed or required for medical reasons: No Are you DNR?: No Advance Directives: No Advance Directives Information Provided: Yes Meds Allergies Allergy/AdvReac Type Severity Reaction Status Date / Time No Known Allergies Allergy NOT Verified 11/05/23 08:02 APPLICABLE Home Medications ?Medication ?Instructions ?Recorded ?Confirmed ?Last Taken ?Type albuterol sulfate 90 mcg/actuation inhalation 06/05/23 Unknown History aerosol inhaler (Ventolin HFA) atorvastatin 40 mg tablet 40 mg PO DAILY PRN 06/05/23 Unknown History calcium carbonate 600 mg-vitamin 1 tab PO TID 06/05/23 Unknown History D3 10 mcg (400 unit) tablet fluticasone propionate 110 inhalation 06/05/23 Unknown History mcg/actuation HFA aerosol inhaler (Flovent HFA) losartan 50 mg tablet 75 mg PO DAILY 06/05/23 Unknown History aspirin 81 mg chewable tablet 1 tab PO QAM 08/13/23 Unknown History fluticasone furoate 100 1 inh inhalation DAILY 08/13/23 Unknown History mcg/actuation blister powder for inhalation (Arnuity Ellipta) Exam Airway Mallampati Class: II TM Dist: >3cm Denture: Upper Loose/Missing/Broken Teeth: No Heart: rrr Lungs: cta Assessment and Plan Assessment Anesthesia Assessment: Anesthesia Plan Discussed Final Anesthetic Review Family History of Problems with Anesthesia: No History of Problems with Anesthesia: No NPO: Yes ASA Class: III Final Preanesthetic Review: No Changes in Pt Med Stat, Meds/Allgs Chart Reviewed, Consent Obtained/Reviewed and Anes Risks/Benef Reviewed Patient Risk: Intermediate Procedure Risk: Intermediate Anesthetic Plan Anesthetic Plan: MAC: Disposition: Standard PACU
[2023-11-25] VITALS (18 sets, daily range): BP systolic 113–181; BP diastolic 44–99; PULSE 86–125; RESP 16–40; TEMP 36.4–36.8; O2SAT 60–100; BMI 27.0
--- NOTE | 2023-11-25 05:45 | P.HPSUR_ITS ---
Pre-Procedural Eval Section A - 24 Hr Update-Section A only Date of Service: 11/25/23 Section B - Complete if H&P > 30 days Chief Complaint: Gastro-esophageal reflux disease without esophagit Details of Present Illness: colon screening Relevant Family History (Specify if Yes): No Relevant Social History: None Present Medications: see Short Stay Collaborative assessment Medical History: Significant History (Seizure disorder Hypertension Asthma GERD (gastroesophageal reflux disease) High cholesterol Polyarthritis Osteoporosis) History of Previous Operations: Relevant previous surgery/procedure and date(s) (H/O abdominal surgery H/O colonoscopy) Allergies: Allergies Allergy/AdvReac Type Severity Reaction Status Date / Time No Known Allergies Allergy NOT Verified 11/05/23 08:02 APPLICABLE Review of Systems Sugical H&P ROS: Negative: Constitution, Cardiovascular, Respiratory, Neurological, Psychiatric, Hem-Onc, Allergic/Immunologic, Gastrointestinal, Genitourinary, Musculoskeletal, Integumentary, Endocrine and Eyes/Ear s/Nose/Throat Exam Surgical H&P Exam: Normal: HEENT, Normal: Heart, Normal: Lungs, Normal: Extremities, Normal: Abdomen, Normal: Skin and Normal: Neurological Plan Diagnosis/Plan: Unchanged I have reviewed the history and physical and performed a pertinent physical examination on my patient. No changes have occurred unless specified. Time Spent With Patient Time: Total time managing care of this patient today ____ minutes.
[2023-11-25] MEDS: Lactated Ringers 1,000 ML 100 ML IVCONT (07:13)
--- NOTE | 2023-11-25 07:43 | HO.OPN-COLON ---
Colonoscopy Operative Note Operative Note Date of Service: 11/25/23 Narrative: Operative Information Procedure Description: EGD, Colonoscopy Indication: GERD and screening Anesthesia: MAC FLEXIBLE TRANSORAL UPPER GASTROINTESTINAL ENDOSCOPY AND COLONOSCOPY PROCEDURE NOTE UPPER ENDOSCOPY Consent: Indications for the procedure and potential complications of bleeding, perforation, reaction to medications and missed diagnosis were discussed with the patient and informed consent was obtained. Instrument: Olympus GIF H 190 J mid size upper endoscope Monitoring: Vital signs and clinical assessment, continuous EKG monitoring, Pulse oximetry, Carbon Dioxide monitoring and blood pressure monitoring were done throughout the procedure. Procedure: The patient was placed in the left lateral decubitis position and pre-procedure medications were administered and a bite block was placed. The endoscope was inserted into the mouth and advanced under direct vision to the third part of duodenum. A careful inspection was made as the upper endoscope was withdrawn including a retroflexed examination of the proximal stomach; Findings and interventions are described below. Findings: Larynx:normal Esophagus: GE junction at 30 cm, diaphragm hiatus at 35 cm, consistent wt 5 cm fixed hiatal hernia, with non obstructive schatzki ring noted Stomach: few erosions w/ erythema and atrophic mucosa. Biopsies were obtained incl for h pylori c/s. Grade 2 flap valve on retroflexed examination of the cardia. Duodenum: Normal bulb and descending duodenum, Intervention: Biopsies as noted above, COLONOSCOPY Instrument: Olympus variable stiffness pediatric scope 190L Colonoscopy Monitoring: Vital signs and clinical assessment, continuous EKG monitoring, Pulse oximetry, Carbon Dioxide monitoring and blood pressure monitoring were done throughout the procedure. Colon withdrawal time was 10 minutes. Procedure: The patient was placed in the left lateral decubitis position and pre-procedure medications were administered. After a digital rectal examination of the ano-rectum, the video colonoscope was inserted into the rectum and advanced through the colon to the cecum/TI. The colonoscope was slowly withdrawn in a retrograde panoramic fashion and the colon mucosa was carefully examined including a retroflexed view of the rectum. Findings and interventions are described below. Procedure Difficulty:moderate Findings: Terminal Ileum-normal Cecum:normal right sided retroflexion- normal Ascending Colon: old tattoo fermin noted Transverse Colon - 5-7 mm sessile polyp removed with cold forceps, 8-10 mm sessile polyp removed with cold snare Descending Colon: mild diverticulosis Sigmoid Colon: moderate diverticulosis Rectum: Retroflexion with samll internal hemorrhoids, grade I Anorectum - normal Colon preparation: [place] Bowel Preparation Scale Right colon; 2 Transverse colon: 2 Left colon; 2 (0 = Unprepared colon segment with mucosa not seen due to solid stool that cannot be cleared. 1 = Portion of mucosa of the colon segment seen, but other areas of the colon segment not well seen due to staining, residual stool and/or opaque liquid. 2 = Minor amount of residual staining, small fragments of stool and/or opaque liquid, but mucosa of colon segment seen well. 3 = Entire mucosa of colon segment seen well with no residual staining, small fragments of stool or opaque liquid) Impression and Post Procedure Diagnosis: Endoscopy Findings: hiatal hernia- moderate schatzki ring erosive gastritis Colonoscopy Findings: diverticulosis colon polyps internal hemorrhoids Plan: Await Pathology results Repeat Colonoscopy in 5 years if health allows or earlier if clinically indicated High fiber diet leaflet avoid straining at stool, epsom salts and sitz bath, anusol supps or cream GERd precautions, PPI compliance, if ongoing sx consider referral for hiatal hernia repair if h pylori pos can repeat rx depending on c/s Above findings were reviewed with the patient and relevant handouts were provided if indicated.
[2023-11-25] MEDS: Racepinephrine HCL 0.5 ML VIAL.NEB INHALE (09:22)
--- NOTE | 2023-11-25 09:23 | PC.RT ---
Verbally, per Dr. Smart, I administered 2 vials of racemic epinephrine; due to the distress and upper airway stridor of the patient. [place] through the treatment, the patient began to double over and hyperventilate. treatment was terminated and the patient ended up calming down and she is much better (per the lens inserter).
[2023-12-07 12:42] LABS: H Pylori Cult Source STOMACH BIOPSY
== END 2023-11-25 11:11 | disposition home or self-care (01) ==
PROVIDERS: PCP Nurse Practitioner Primary Care; Visit Provider Internal Medicine Gastroenterology
PROC: (CPT 45385; principal; 2023-11-25 07:30)
DX: Z12.11 Encounter for screening for malignant neoplasm of colon (principal); D12.3 Benign neoplasm of transverse colon; K57.30 Diverticulosis of large intestine without perforation or abscess without bleeding; K64.0 First degree hemorrhoids; Z86.010 Personal history of colon polyps; K21.9 Gastro-esophageal reflux disease without esophagitis; K29.60 Other gastritis without bleeding; K22.2 Esophageal obstruction; K44.9 Diaphragmatic hernia without obstruction or gangrene; I10 Essential (primary) hypertension; J45.909 Unspecified asthma, uncomplicated; G40.909 Epilepsy, unspecified, not intractable, without status epilepticus
CPT/HCPCS: 45385; 45380; 43239; 36415; 87081; 88305; 88313; 88342; 94640; J0330; J1596; J2704

== ENCOUNTER → 2023-11-25 05:35 | Outpatient (BNV) | payer MEDICARE, SELFPAY | PROVIDERS: PCP Nurse Practitioner Primary Care; Visit Provider Internal Medicine Gastroenterology | DX: Z12.11 Encounter for screening for malignant neoplasm of colon (principal); D12.3 Benign neoplasm of transverse colon; K57.90 Diverticulosis of intestine, part unspecified, without perforation or abscess without bleeding; K64.0 First degree hemorrhoids; K21.9 Gastro-esophageal reflux disease without esophagitis; K29.70 Gastritis, unspecified, without bleeding; K22.2 Esophageal obstruction | CPT/HCPCS: 43239; 45380; 45385 ==

== ENCOUNTER 2023-12-09 08:42 | Outpatient (AMB) | payer MEDICARE, SELFPAY ==
--- NOTE | 2023-12-09 08:43 | A.OFFVIS_ITS ---
Vital Signs 12/09/23 08:44 Height 5 ft 2 in Weight 145 lb 1.027 oz BMI 26.5 BP 152/72 H Blood Pressure Location Lt brachial Position Sitting Pulse 86 Intake Visit Reasons: s/p egd/colon Intake Note: Cindy presents in office today in follow up s/p EGD and colonoscopy (11/25/23). CC: Patient reports that she is not having a lot of appetite. Counseling Services Manager Required: Yes Accompanied by: Sister Allergies No Known Allergies Allergy (Verified 12/09/23 08:49) NOT APPLICABLE HPI HPI s/p egd/colon: Details: Assessment & Plan (1) GERD (gastroesophageal reflux disease): Code(s): K21.9 - Gastro-esophageal reflux disease without esophagitis Category: Medical (2) Chronic idiopathic constipation: Code(s): K59.04 - Chronic idiopathic constipation Category: Medical (3) H. pylori infection: Comment: Failed quadruple therapy, now using Levaquin and amoxicillin Code(s): A04.8 - Other specified bacterial intestinal infections Category: Medical Plan [facility] #[facility] Live She continues to have epigastric pain and HB and and itching sensation in her throat. We review the barium swallow and I inform her that the HP was not cured despite quadruple therapy. The barium swallow does show a possible esophageal stricture along with a moderate sized hiatal hernia along with some non propulsive esophageal peristalsis along most of the esophagus. She is agreeable to retreating the H pylori with Levaquin and amoxicillin therapy. She is also advised take a probiotic. She continues on as omeprazole in the morning and famotidine at night. Keep 12/08v appt after EGD/colonoscopy Medications: New amoxicillin 1,000 mg (2 x 500 mg) PO Q12H 56 caps 0RF 14 days levofloxacin 500 mg PO DAILY 14 tabs 0RF 14 days A04.8 - Other specified bacterial intestinal infections EGD/COLONOSCOPY 11/25/23 Findings: Larynx:normal Esophagus: GE junction at 30 cm, diaphragm hiatus at 35 cm, consistent wt 5 cm fixed hiatal hernia, with non obstructive schatzki ring noted Stomach: few erosions w/ erythema and atrophic mucosa. Biopsies were obtained incl for h pylori c/s. Grade 2 flap valve on retroflexed examination of the cardia. Duodenum: Normal bulb and descending duodenum, Findings: Terminal Ileum-normal Cecum:normal right sided retroflexion- normal Ascending Colon: old tattoo fermin noted Transverse Colon - 5-7 mm sessile polyp removed with cold forceps, 8-10 mm sessile polyp removed with cold snare Descending Colon: mild diverticulosis Sigmoid Colon: moderate diverticulosis Rectum: Retroflexion with samll internal hemorrhoids, grade I Anorectum - normal Impression and Post Procedure Diagnosis: Endoscopy Findings: hiatal hernia- moderate schatzki ring erosive gastritis Colonoscopy Findings: diverticulosis colon polyps internal hemorrhoids Plan: Await Pathology results Repeat Colonoscopy in 5 years if health allows or earlier if clinically indicated High fiber diet leaflet avoid straining at stool, epsom salts and sitz bath, anusol supps or cream GERd precautions, PPI compliance, if ongoing sx consider referral for hiatal hernia repair if h pylori pos can repeat rx depending on c/s Received: 11/25/23 Diagnosis A. Colon, transverse, polypectomies (2): Fragments of tubular adenomata; negative for high-grade dysplasia or carcinoma. B. Stomach, biopsy: Oxyntic mucosa with moderate chronic active inflammation; no Helicobacter organisms seen. TODAY'S VISIT [facility] #Marni Barrios She is here today with a female family member who is quiet but supportive. Quadruple therapy was sent 07/01/2023 after the H pylori came back positive. She received the abx and completed them > 2 weeks ago. She says her GERD has improved a little bit. She tolerated the abx well. She is aware of the barium swallow in July but has not been contacted yet, per her report, for the EGD/colonoscopy. I verify their phone is correct because we have several messages saying we attempted to call her and she did not return our call. There was also a letter sent but apparently they are having trouble with the mail delivery where she lives. I will Walker down to the schedulers to get this set up. ROV after barium swallow . Orders: Orders H pylori Ag Stool Today A04.8 - Other specified bacterial intestinal infections, K59.04 - Chronic idiopathic constipation Laboratory Tests 08/19/23 08:00 Stool H. pylori Ag positive EGD/COLONOSCOPY 11/25/23 Findings: Terminal Ileum-normal Cecum:normal right sided retroflexion- normal Ascending Colon: old tattoo fermin noted Transverse Colon - 5-7 mm sessile polyp removed with cold forceps, 8-10 mm sessile polyp removed with cold snare Descending Colon: mild diverticulosis Sigmoid Colon: moderate diverticulosis Rectum: Retroflexion with samll internal hemorrhoids, grade I Anorectum - normal Impression and Post Procedure Diagnosis: Endoscopy Findings: hiatal hernia- moderate schatzki ring erosive gastritis Colonoscopy Findings: diverticulosis colon polyps internal hemorrhoids Plan: Await Pathology results Repeat Colonoscopy in 5 years if health allows or earlier if clinically indicated High fiber diet leaflet avoid straining at stool, epsom salts and sitz bath, anusol supps or cream GERd precautions, PPI compliance, if ongoing sx consider referral for hiatal hernia repair if h pylori pos can repeat rx depending on c/s BIOPSY Received: 11/25/23 Diagnosis A. Colon, transverse, polypectomies (2): Fragments of tubular adenomata; negative for high-grade dysplasia or carcinoma. B. Stomach, biopsy: Oxyntic mucosa with moderate chronic active inflammation; no Helicobacter organisms seen. BARIUM SWALLOW 10/29/23 FINDINGS: Imaging of the oropharynx and hypopharynx demonstrate normal swallow mechanism with normal epiglottic inversion and soft palate elevation. No tracheal penetration, glottic or subglottic aspiration identified. Minimal nasopharyngeal reflux present. Hypopharyngeal structures appear normal without evidence of mass or diverticulum. There was no significant cricopharyngeal achalasia. Dual and single contrast images of the esophagus demonstrate a mildly patulous esophagus. No masses or strictures are noted. Within the mid esophagus, there is a focal area of contrast pooling suspicious for a tiny ulceration (RF 1-3, image 40). A wide open, nonobstructing, Schatzki's ring is present. There is to and fro motion of the barium column with nonpropulsive tertiary contractions noted throughout the entire esophagus. A moderate-sized type I hiatal hernia is present. Gastroesophageal reflux is seen up to the thoracic inlet. Dual contrast and single contrast images of the stomach demonstrated a normal contour. The gastric rugal folds have a thickened appearance. No masses or ulcerations are seen. Contrast freely passed into the gastric antrum and duodenal bulb without delay. Single and air-contrast images of the duodenal bulb demonstrate no abnormality. The duodenal sweep has a normal appearance, course, and mucosal fold appearance. No malrotation. The imaged proximal jejunum has a normal fold pattern and caliber. FLUOROSCOPY TIME: 3 minutes 40 seconds Number of Spot Images: 11 Number of Cine: 11 DOSE AREA PRODUCT: 2325 uGy-m2 (microgray-meter squared) FL/FL barium swallow with air IMPRESSION: 1. Mildly patulous esophagus. To and fro motion of the barium column with nonpropulsive tertiary contractions noted throughout the esophagus. These findings are consistent with esophageal dysmotility. 2. Wide open, nonobstructing, Schatzki's ring. 3. Moderate-sized type I hiatal hernia. 4. Moderate gastroesophageal reflux. 5. Thickened gastric rugal folds likely representing gastritis. 6. Possible subtle superficial ulceration are in the mid esophagus. TODAY'S VISIT She was told she had trouble breathing by staff after the procedure and to tell someone if I have anesthesia again. This was not prominently displayed in the procedure note, so I had to dig into the anesthesia note to see that she developed laryngospams and bipap was used. She is agreeable to a 5 year repeat. The results were explained and the patient is agreeable to the follow-up interval as stated. The bowel pattern has returned to normal. Education was provided to tell any 1st degree relatives about their findings to be sure that they are screened by age 45. Educated that they will be put on a recall list when it is time for their repeat scope but should they move out of state or away from the hospital they will need to remember along with their primary to repeat the procedure in a timely fashion to avoid any adverse complications. She had been burying Nexium OTC, not enough with the famotidine so ordering pantorpazole ? PA. bid. Since she still has residual symptoms I would like to test the stool antigen even though the localized stomach biopsy did not show H pylori. She still has ongoing inflammation so I do not think her [id number] is strong enough and I would like get her on twice a day pantoprazole. She also has rather severe presbyesophagus with non propulsive peristalsis of the esophagus on barium swallow. ROV 8 weeks to assess. [facility] Medical History Seizure disorder Hypertension Asthma GERD (gastroesophageal reflux disease) High cholesterol Polyarthritis Osteoporosis Surgical History History of esophagogastroduodenoscopy (EGD) H/O abdominal surgery H/O colonoscopy Social History Patient Tobacco Use Status: Never used Tobacco Review of Systems Const Denies fatigue, Denies fever(s), Denies night sweats, Denies poor appetite and Denies weight loss ENT Reports Normal hearing present, Denies dental pain, Reports dysphagia, Denies hearing loss, Denies mouth pain, Denies odynophagia, Denies throat swelling, De nies tongue swelling and Reports other (Dentition adequate) Card Reports no additional complaints Resp Reports no additional complaints GI Details: Denies abdominal pain, Denies melena, Reports bloating, Denies hematochezia, Reports constipation, Denies GI cramping, Reports dysphagia, Denies excessive flatus, Denies early satiety, Reports heartburn, Denies diarrhea, Denies nausea, Denies odynophagia, Denies vomiting and Denies hematemesis Skin/Breast Denies pruritus, Denies lesions, Denies rash and Denies jaundice Neuro Reports Normal hearing present and Denies Abnormal speech present Endo Denies fatigue Aller/Immun Denies throat swelling and Denies tongue swelling Physical Exam Vital Signs: Last Vital Signs Pulse 86 12/09/23 08:44 BP 152/72 H 12/09/23 08:44 BMI result Body Mass Index 26.5 Const General: cooperative, no acute distress, well developed and well groomed Nutritional Appearance: average body habitus and well nourished Orientation/consciousness: oriented to person, oriented to place and oriented to time Limitations: language barrier HEENT Head: Yes normocephalic and Yes atraumatic Eyes General: appearance normal, both eyes and all related structures Pupils: Equal, round and reactive pupils present Neck Neck: Yes normal visual inspection and Yes no lymphadenopathy Thyroid: Thyroid normal Resp Effort & Inspection: normal respiratory effort and able to speak in complete sentences Auscultation: clear to auscultation bilaterally Cardio Rate: regular rate Rhythm: regular rhythm Heart sounds: Normal, physiologic split S2 sound present Peripheral pulses: radial pulses present and posterior tibial pulses present GI Inspection: No distended and No Abdominal panniculus present Palpation (GI): Soft to palpation, nontender, no guarding, not rigid and No hepatosplenomegaly present Percussion: Yes normal to percussion Auscultation: normal bowel sounds Rectal Exam - Female: deferred Skin General skin exam: no rashes or lesions noted, turgor normal, skin not dry, no jaundice, No spider nevi and no striae Rashes: no rashes Nails: normal Neuro General: oriented to person, oriented to place and oriented to time Cranial nerves: Yes Equal, round and reactive pupils present and Yes Normal hearing present Speech: No Abnormal speech present Extrem General: Yes normal to inspection, No clubbing, No cyanosis and No edema Psych Appearance: grossly normal and well kempt Mental Status: mental status grossly normal Speech and movement: Normal speech and movement present Affect: normal affect Attitude: cooperative Thought process: Normal thought process present and not confabulating Thought content: Normal thought content present Insight: Limited insight present (Psych) Judgement: Limited judgement present (Psych) Results Reviewed Results Reviewed: EGD/COLONOSCOPY 11/25/23 Findings: Terminal Ileum-normal Cecum:normal right sided retroflexion- normal Ascending Colon: old tattoo fermin noted Transverse Colon - 5-7 mm sessile polyp removed with cold forceps, 8-10 mm sessile polyp removed with cold snare Descending Colon: mild diverticulosis Sigmoid Colon: moderate diverticulosis Rectum: Retroflexion with samll internal hemorrhoids, grade I Anorectum - normal Impression and Post Procedure Diagnosis: Endoscopy Findings: hiatal hernia- moderate schatzki ring erosive gastritis Colonoscopy Findings: diverticulosis colon polyps internal hemorrhoids Plan: Await Pathology results Repeat Colonoscopy in 5 years if health allows or earlier if clinically moncho cated High fiber diet leaflet avoid straining at stool, epsom salts and sitz bath, anusol supps or cream GERd precautions, PPI compliance, if ongoing sx consider referral for hiatal hernia repair if h pylori pos can repeat rx depending on c/s BIOPSY Received: 11/25/23 Diagnosis A. Colon, transverse, polypectomies (2): Fragments of tubular adenomata; negative for high-grade dysplasia or carcinoma. B. Stomach, biopsy: Oxyntic mucosa with moderate chronic active inflammation; no Helicobacter organisms seen. BARIUM SWALLOW 10/29/23 FINDINGS: Imaging of the oropharynx and hypopharynx demonstrate normal swallow mechanism with normal epiglottic inversion and soft palate elevation. No tracheal penetration, glottic or subglottic aspiration identified. Minimal nasopharyngeal reflux present. Hypopharyngeal structures appear normal without evidence of mass or diverticulum. There was no significant cricopharyngeal achalasia. Dual and single contrast images of the esophagus demonstrate a mildly patulous esophagus. No masses or strictures are noted. Within the mid esophagus, there is a focal area of contrast pooling suspicious for a tiny ulceration (RF 1-3, image 40). A wide open, nonobstructing, Schatzki's ring is present. There is to and fro motion of the barium column with nonpropulsive tertiary contractions noted throughout the entire esophagus. A moderate-sized type I hiatal hernia is present. Gastroesophageal reflux is seen up to the thoracic inlet. Dual contrast and single contrast images of the stomach demonstrated a normal contour. The gastric rugal folds have a thickened appearance. No masses or ulcerations are seen. Contrast freely passed into the gastric antrum and duodenal bulb without delay. Single and air-contrast images of the duodenal bulb demonstrate no abnormality. The duodenal sweep has a normal appearance, course, and mucosal fold appearance. No malrotation. The imaged proximal jejunum has a normal fold pattern and caliber. FLUOROSCOPY TIME: 3 minutes 40 seconds Number of Spot Images: 11 Number of Cine: 11 DOSE AREA PRODUCT: 2325 uGy-m2 (microgray-meter squared) FL/FL barium swallow with air IMPRESSION: 1. Mildly patulous esophagus. To and fro motion of the barium column with nonpropulsive tertiary contractions noted throughout the esophagus. These findings are consistent with esophageal dysmotility. 2. Wide open, nonobstructing, Schatzki's ring. 3. Moderate-sized type I hiatal hernia. 4. Moderate gastroesophageal reflux. 5. Thickened gastric rugal folds likely representing gastritis. 6. Possible subtle superficial ulceration are in the mid esophagus. Assessment & Plan Assessment & Plan (1) H. pylori infection: Comment: Failed quadruple therapy, now using Levaquin and amoxicillin Code(s): A04.8 - Other specified bacterial intestinal infections Category: Medical (2) Erosive gastritis: Code(s): K29.60 - Other gastritis without bleeding Category: Medical (3) Laryngospasm: Comment: AFTER ANESTHESIA AND EGD HAD TO USE BIPAP - NOTE FOR FUTURE SEDATIONS Code(s): J38.5 - Laryngeal spasm Category: Medical (4) Adverse anesthesia outcome: Comment: Laryngeal spasm after her EGD/colonoscopy that necessitated BiPAP Code(s): T41.45XA - Adverse effect of unspecified anesthetic, initial encounter Category: Medical (5) Presbyesophagus: Comment: 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 Code(s): K22.89 - Other specified disease of esophagus Category: Medical Plan She was told she had trouble breathing by staff after the procedure and to tell someone if I have anesthesia again. This was not prominently displayed in the procedure note, so I had to dig into the anesthesia note to see that she developed laryngospams and bipap was used. She is agreeable to a 5 year repeat. The results were explained and the patient is agreeable to the follow-up interval as stated. The bowel pattern has returned to normal. Education was provided to tell any 1st degree relatives about their findings to be sure that they are screened by age 45. Educated that they will be put on a recall list when it is time for their repeat scope but should they move out of state or away from the hospital they will need to remember along with their primary to repeat the procedure in a timely fashion to avoid any adverse complications. She had been burying Nexium OTC, not enough with the famotidine so ordering pantorpazole ? PA. bid. Since she still has residual symptoms I would like to test the stool antigen even though the localized stomach biopsy did not show H pylori. She still has ongoing inflammation so I do not think her [id number] is strong enough and I would like get her on twice a day pantoprazole. She also has rather severe presbyesophagus with non propulsive peristalsis of the esophagus on barium swallow. ROV 8 weeks to assess. Orders: Orders H pylori Ag Stool Today A04.8 - Other specified bacterial intestinal infections Medications: New pantoprazole (Protonix) 40 mg PO BID 60 tabs 6RF 30 days A04.8 - Other specified bacterial intestinal infections, K29.60 - Other gastritis without bleeding Refilled famotidine (Pepcid) 40 mg PO BEDTIME 14 tabs 0RF 14 days A04.8 - Other specified bacterial intestinal infections On Hold esomeprazole magnesium Hold Comment: Doctor's Order 40 mg PO DAILY 30 caps 6RF K21.9 - Gastro- esophageal reflux disease without esophagitis Coding Level of Care Code Est Pt Level 4 (10390) Diagnoses H. pylori infection A04.8 Erosive gastritis K29.60 Laryngospasm J38.5 Adverse anesthesia outcome T41.45XA Presbyesophagus K22.89 Time Spent (min) 40
[2023-12-09 08:44] VITALS: BP 152/72; PULSE 86; BMI 26.5
== END 2023-12-09 09:59 | disposition home or self-care (01) ==
PROVIDERS: PCP Nurse Practitioner Primary Care; Visit Provider Nurse Practitioner
DX: A04.8 Other specified bacterial intestinal infections (principal); K29.60 Other gastritis without bleeding; J38.5 Laryngeal spasm; T41.45XA Adverse effect of unspecified anesthetic, initial encounter; K22.89 Other specified disease of esophagus
CPT/HCPCS: 99214

== ENCOUNTER → 2023-12-09 08:42 | Outpatient (BNVA) | payer MEDICARE, SELFPAY | PROVIDERS: PCP Nurse Practitioner Primary Care; Visit Provider Nurse Practitioner | DX: K29.60 Other gastritis without bleeding (principal); K22.89 Other specified disease of esophagus; A04.8 Other specified bacterial intestinal infections; T41.45XA Adverse effect of unspecified anesthetic, initial encounter; J38.5 Laryngeal spasm | CPT/HCPCS: 99212 ==

== ENCOUNTER 2023-12-29 10:48 | Outpatient (REF) | payer MEDICARE, SELFPAY | END 2023-12-29 10:49 | disposition home or self-care (01) | LOC: HO.LNP 10:48 | PROVIDERS: Visit Provider Nurse Practitioner | DX: A04.8 Other specified bacterial intestinal infections (principal) | CPT/HCPCS: 87338 ==

== ENCOUNTER 2024-02-04 09:37 | Outpatient (AMB) | payer MEDICARE, SELFPAY ==
--- NOTE | 2024-02-04 09:45 | MHC.OFFVIS ---
Vital Signs 02/04/24 09:47 Height 5 ft 2 in Weight 145 lb 15.136 oz BMI 26.7 BP 137/90 H Blood Pressure Location Lt brachial Position Sitting Pulse 97 Intake Visit Reasons: 8 week follow up Intake Note: Cindy presents to in office follow up of H pylori stool test. CC: Patient states that she is doing well and denies having any new GI concerns. Neuropsychology Division Chief Required: Yes Accompanied by: Sister Allergies No Known Allergies Allergy (Verified 02/04/24 09:57) NOT APPLICABLE HPI HPI 8 week follow up: Details: Assessment & Plan (1) H. pylori infection: Comment: Failed quadruple therapy, now using Levaquin and amoxicillin Code(s): A04.8 - Other specified bacterial intestinal infections Category: Medical (2) Erosive gastritis: Code(s): K29.60 - Other gastritis without bleeding Category: Medical (3) Laryngospasm: Comment: AFTER ANESTHESIA AND EGD HAD TO USE BIPAP - NOTE FOR FUTURE SEDATIONS Code(s): J38.5 - Laryngeal spasm Category: Medical (4) Adverse anesthesia outcome: Comment: Laryngeal spasm after her EGD/colonoscopy that necessitated BiPAP Code(s): T41.45XA - Adverse effect of unspecified anesthetic, initial encounter Category: Medical (5) Presbyesophagus: Comment: 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 Code(s): K22.89 - Other specified disease of esophagus Category: Medical Plan She was told she had trouble breathing by staff after the procedure and to tell someone if I have anesthesia again. This was not prominently displayed in the procedure note, so I had to dig into the anesthesia note to see that she developed laryngospams and bipap was used. She is agreeable to a 5 year repeat. The results were explained and the patient is agreeable to the follow-up interval as stated. The bowel pattern has returned to normal. Education was provided to tell any 1st degree relatives about their findings to be sure that they are screened by age 45. Educated that they will be put on a recall list when it is time for their repeat scope but should they move out of state or away from the hospital they will need to remember along with their primary to repeat the procedure in a timely fashion to avoid any adverse complications. She had been burying Nexium OTC, not enough with the famotidine so ordering pantorpazole ? PA. bid. Since she still has residual symptoms I would like to test the stool antigen even though the localized stomach biopsy did not show H pylori. She still has ongoing inflammation so I do not think her [id number] is strong enough and I would like get her on twice a day pantoprazole. She also has rather severe presbyesophagus with non propulsive peristalsis of the esophagus on barium swallow. ROV 8 weeks to assess. Orders: Orders H pylori Ag Stool Today A04.8 - Other specified bacterial intestinal infections Medications: New pantoprazole (Protonix) 40 mg PO BID 60 tabs 6RF 30 days A04.8 - Other specified bacterial intestinal infections, K29.60 - Other gastritis without bleeding Refilled famotidine (Pepcid) 40 mg PO BEDTIME 14 tabs 0RF 14 days A04.8 - Other specified bacterial intestinal infections On Hold esomeprazole magnesium Hold Comment: Doctor's Order 40 mg PO DAILY 30 caps 6RF K21.9 - Gastro-esophageal reflux disease without esophagitis Laboratory Tests 12/29/23 08:00 Stool H. pylori Ag negative TODAY'S VISIT [place] [facility] [employer] She is now doing well on her pantoprazole bid. We will stop the famotidine and the esomeprazole since we could not get bid dosing for the generic Nexium to treat her erosive gastritis. She now is eating well w/o any pain and her swallowing has also improved. We will continue this for the time being. We review the stool and the EGD biopsy and they agree that the HP is eradicated. With this, we may be able to decrease the pantoprazole in the future. She continues on senna for CIC. ROV 6 mos. PFS Medical History Seizure disorder Hypertension Asthma GERD (gastroesophageal reflux disease) High cholesterol Polyarthritis Osteoporosis Surgical History History of esophagogastroduodenoscopy (EGD) H/O abdominal surgery H/O colonoscopy Social History Patient Tobacco Use Status: Never used Tobacco Review of Systems Const Denies fatigue, Denies fever(s), Denies night sweats, Denies poor appetite and Denies weight loss Eyes Details: glasses Reports requires corrective lenses ENT Reports Normal hearing present, Denies dental pain, Denies dysphagia, Denies hearing loss, Denies mouth pain, Denies odynophagia, Denies throat swelling, Denies tongue swelling and Reports other (Dentition adequate) Card Reports no additional complaints Resp Reports no additional complaints GI Details: Denies abdominal pain, Denies melena, Denies bloating, Denies hematochezia, Reports constipation, Denies GI cramping, Denies dysphagia, Denies excessive flatus, Denies early satiety, Reports heartburn, Denies diarrhea, Denies nausea, Denies odynophagia, Denies vomiting and Denies hematemesis Skin/Breast Denies pruritus, Denies lesions, Denies rash and Denies jaundice Neuro Reports Normal hearing present and Denies Abnormal speech present Endo Denies fatigue Aller/Immun Denies throat swelling and Denies tongue swelling Physical Exam Vital Signs: BMI result Body Mass Index 26.7 Const General: cooperative, no acute distress, well developed and well groomed Nutritional Appearance: well nourished Orientation/consciousness: oriented to person, oriented to place and oriented to time Limitations: language barrier HEENT Head: Yes normocephalic and Yes atraumatic Eyes General: appearance normal, both eyes and all related structures Pupils: Equal, round and reactive pupils present Neck Neck: Yes normal visual inspection and Yes no lymphadenopathy Thyroid: Thyroid normal Resp Effort & Inspection: normal respiratory effort and able to speak in complete sentences Auscultation: clear to auscultation bilaterally Cardio Rate: regular rate Rhythm: regular rhythm Heart sounds: Normal, physiologic split S2 sound present Peripheral pulses: radial pulses present and posterior tibial pulses present GI Inspection: No distended, No Abdominal panniculus present and Yes obesity Palpation (GI): Soft to palpation, nontender, no guarding, not rigid and No hepatosplenomegaly present Percussion: Yes normal to percussion Auscultation: normal bowel sounds Rectal Exam - Female: deferred Skin General skin exam: no rashes or lesions noted, turgor normal, skin not dry, no jaundice, No spider nevi and no striae Rashes: no rashes Nails: normal Neuro General: oriented to person, oriented to place and oriented to time Cranial nerves: Yes Equal, round and reactive pupils present and Yes Normal hearing present Speech: No Abnormal speech present Extrem General: Yes normal to inspection, No clubbing, No cyanosis and No edema Psych Appearance: grossly normal and well kempt Mental Status: mental status grossly normal Speech and movement: Normal speech and movement present Affect: normal affect Attitude: cooperative Thought process: Normal thought process present and not confabulating Thought content: Normal thought content present Insight: Limited insight present (Psych) Judgement: Limited judgement present (Psych) Assessment & Plan Assessment & Plan (1) Erosive gastritis: Code(s): K29.60 - Other gastritis without bleeding Category: Medical (2) H. pylori infection: Comment: Failed quadruple therapy, now using Levaquin and amoxicillin Code(s): A04.8 - Other specified bacterial intestinal infections Category: Medical (3) Chronic idiopathic constipation: Code(s): K59.04 - Chronic idiopathic constipation Category: Medical (4) GERD (gastroesophageal reflux disease): Code(s): K21.9 - Gastro-esophageal reflux disease without esophagitis Category: Medical Plan [place] [facility] She is now doing well on her pantoprazole bid. We will stop the famotidine and the esomeprazole since we could not get bid dosing for the generic Nexium to treat her erosive gastritis. She now is eating well w/o any pain and her swallowing has also improved. We will continue this for the time being. We review the stool and the EGD biopsy and they agree that the HP is eradicated. With this, we may be able to decrease the pantoprazole in the future. She continues on senna for CIC. ROV 6 mos. Medications: Refilled pantoprazole (Protonix) 40 mg PO BID 30 days 60 tabs 6RF A04.8 - Other specified bacterial intestinal infections, K29.60 - Other gastritis without bleeding Discontinued bisacodyl (Dulcolax (bisacodyl)) colonoscopy prep Discontinued Reason: Doctor's Order 10 mg (2 x 5 mg) PO BEDTIME 2 days 4 tabs 0RF famotidine (Pepcid) Discontinued Reason: More recent result 40 mg PO BEDTIME 14 days 14 tabs 0RF A04.8 - Other specified bacterial intestinal infections Coding Level of Care Code Est Pt Level 3 (55381) Diagnoses Erosive gastritis K29.60 H. pylori infection A04.8 Chronic idiopathic constipation K59.04 GERD (gastroesophageal reflux disease) K21.9
[2024-02-04 09:47] VITALS: BP 137/90; PULSE 97; BMI 26.7
== END 2024-02-04 10:10 | disposition home or self-care (01) ==
PROVIDERS: PCP Nurse Practitioner Primary Care; Visit Provider Nurse Practitioner
DX: K29.60 Other gastritis without bleeding (principal); A04.8 Other specified bacterial intestinal infections; K59.04 Chronic idiopathic constipation; K21.9 Gastro-esophageal reflux disease without esophagitis
CPT/HCPCS: 99213

== ENCOUNTER → 2024-02-04 09:37 | Outpatient (BNVA) | payer MEDICARE, SELFPAY | PROVIDERS: PCP Nurse Practitioner Primary Care; Visit Provider Nurse Practitioner | DX: K29.60 Other gastritis without bleeding (principal); K59.04 Chronic idiopathic constipation; K21.9 Gastro-esophageal reflux disease without esophagitis; A04.8 Other specified bacterial intestinal infections | CPT/HCPCS: 99212 ==

== ENCOUNTER 2024-10-27 09:22 | Outpatient (AMB) | payer MEDICARE, SELFPAY ==
[2024-10-27 09:23] VITALS: BP 126/59; PULSE 82; O2SAT 97; BMI 26.0
--- NOTE | 2024-10-27 09:23 | MHC.OFFVIS ---
Vital Signs 10/27/24 09:23 Height 5 ft 2 in Weight 142 lb 6.698 oz BMI 26.0 BP 126/59 L Blood Pressure Location Lt brachial Position Sitting Pulse 82 Pulse Source Pulse Oximeter Pulse Oximetry (%) 97 Oxygen Delivery Method Room Air Intake Visit Reasons: Follow up CIC R/S from 08/04/24 Intake Note: Pt presents to the office today for a follow up CIC. Allergies No Known Allergies Allergy (Verified 10/27/24 09:30) NOT APPLICABLE HPI HPI Follow up CIC R/S from 08/04/24: Details: Assessment & Plan (1) Erosive gastritis: Code(s): K29.60 - Other gastritis without bleeding Category: Medical (2) H. pylori infection: Comment: Failed quadruple therapy, now using Levaquin and amoxicillin Code(s): A04.8 - Other specified bacterial intestinal infections Category: Medical (3) Chronic idiopathic constipation: Code(s): K59.04 - Chronic idiopathic constipation Category: Medical (4) GERD (gastroesophageal reflux disease): Code(s): K21.9 - Gastro-esophageal reflux disease without esophagitis Category: Medical Plan [place] [employer] She is now doing well on her pantoprazole bid. We will stop the famotidine and the esomeprazole since we could not get bid dosing for the generic Nexium to treat her erosive gastritis. She now is eating well w/o any pain and her swallowing has also improved. We will continue this for the time being. We review the stool and the EGD biopsy and they agree that the HP is eradicated. With this, we may be able to decrease the pantoprazole in the future. She continues on senna for CIC. ROV 6 mos. Medications: Refilled pantoprazole (Protonix) 40 mg PO BID 30 days 60 tabs 6RF A04.8 - Other specified bacterial intestinal infections, K29.60 - Other gastritis without bleeding Discontinued bisacodyl (Dulcolax (bisacodyl)) colonoscopy prep Discontinued Reason: Doctor's Order 10 mg (2 x 5 mg) PO BEDTIME 2 days 4 tabs 0RF famotidine (Pepcid) Discontinued Reason: More recent result 40 mg PO BEDTIME 14 days 14 tabs 0RF A04.8 - Other specified bacterial intestinal infections TODAY'S VISIT [place] #family member translates per pt request She is on bid pantoprazole and senna. She continues to be very satisfied with her GI regimen. She is not due for screening colonoscopy again until 2028. She is offered a yearly follow-up but prefers to stay at the [facility]. [facility] Medical History Seizure disorder Hypertension Asthma GERD (gastroesophageal reflux disease) High cholesterol Polyarthritis Osteoporosis Surgical History History of esophagogastroduodenoscopy (EGD) H/O abdominal surgery H/O colonoscopy Social History Patient Tobacco Use Status: Never used Tobacco Review of Systems Const Denies fatigue, Denies fever(s), Denies night sweats, Denies poor appetite and Denies weight loss Eyes Details: glasses Reports requires corrective lenses ENT Reports Normal hearing present, Denies dental pain, Denies dysphagia, Denies hearing loss, Denies mouth pain, Denies odynophagia, Denies throat swelling, Denies tongue swelling and Reports other (Dentition adequate) Card Reports no additional complaints Resp Reports no additional complaints GI Details: Denies abdominal pain, Denies melena, Denies bloating, Denies hematochezia, Reports constipation, Denies GI cramping, Denies dysphagia, Denies excessive flatus, Denies early satiety, Reports heartburn, Denies diarrhea, Denies nausea, Denies odynophagia, Denies vomiting and Denies hematemesis Skin/Breast Denies pruritus, Denies lesions, Denies rash and Denies jaundice Neuro Reports Normal hearing present and Denies Abnormal speech present Endo Denies fatigue Aller/Immun Denies throat swelling and Denies tongue swelling Physical Exam Vital Signs: BMI result Body Mass Index 26.0 Const General: cooperative, no acute distress, well developed and well groomed Nutritional Appearance: well nourished and overweight Orientation/consciousness: oriented to person, oriented to place and oriented to time Limitations: language barrier HEENT Head: Yes normocephalic and Yes atraumatic Eyes General: appearance normal, both eyes and all related structures Pupils: Equal, round and reactive pupils present Neck Neck: Yes normal visual inspection and Yes no lymphadenopathy Thyroid: Thyroid normal Resp Effort & Inspection: normal respiratory effort and able to speak in complete sentences Auscultation: clear to auscultation bilaterally Cardio Rate: regular rate Rhythm: regular rhythm Heart sounds: Normal, physiologic split S2 sound present Peripheral pulses: radial pulses present and posterior tibial pulses present GI Inspection: No distended, No Abdominal panniculus present and Yes obesity Palpation (GI): Soft to palpation, nontender, no guarding, not rigid and No hepatosplenomegaly present Percussion: Yes normal to percussion Auscultation: normal bowel sounds Rectal Exam - Female: deferred Skin General skin exam: no rashes or lesions noted, turgor normal, skin not dry, no jaundice, No spider nevi and no striae Rashes: no rashes Nails: normal Neuro General: oriented to person, oriented to place and oriented to time Cranial nerves: Yes Equal, round and reactive pupils present and Yes Normal hearing present Speech: No Abnormal speech present Extrem General: Yes normal to inspection, No clubbing, No cyanosis and No edema Psych Appearance: grossly normal and well kempt Mental Status: mental status grossly normal Speech and movement: Normal speech and movement present Affect: normal affect Attitude: cooperative Thought process: Normal thought process present and not confabulating Thought content: Normal thought content present Insight: Fair insight present (Psych) Judgement: Fair judgement present (Psych) Assessment & Plan Assessment & Plan (1) GERD (gastroesophageal reflux disease): Code(s): K21.9 - Gastro-esophageal reflux disease without esophagitis Category: Medical (2) Chronic idiopathic constipation: Code(s): K59.04 - Chronic idiopathic constipation Category: Medical Plan [place] #family member translates per pt request She is on bid pantoprazole and senna. She continues to be very satisfied with her GI regimen. She is not due for screening colonoscopy again until 2028. She is offered a yearly follow-up but prefers to stay at the [facility]. Medications: Changed From pantoprazole (Protonix) 40 mg PO BID 30 days 60 tabs 6RF A04.8 - Other specified bacterial intestinal infections, K29.60 - Other gastritis without bleeding To pantoprazole (Protonix) 40 mg PO BID 90 days 180 tabs 1RF A04.8 - Other specified bacterial intestinal infections, K29.60 - Other gastritis without bleeding From sennosides (Senna Laxative) 17.2 mg (2 x 8.6 mg) PO BEDTIME 60 tabs 6RF K59.04 - Chronic idiopathic constipation To sennosides (Senna Laxative) 17.2 mg (2 x 8.6 mg) PO BEDTIME 90 days 180 tabs 1RF K59.04 - Chronic idiopathic constipation Coding Level of Care Code Est Pt Level 3 (50066) Diagnoses GERD (gastroesophageal reflux disease) K21.9 Chronic idiopathic constipation K59.04
--- OUTSIDE RECORDS SUMMARY | 2024-10-27 10:00 | XMS_ITS | Encounter Summary ---
Author Organization [employer] [facility] Address [address] [place] [address] [address] [place] [address] Care Team Providers Care Front End Mechanic Name Role Phone Mary Campo Primary Care Provider [phone] Encounter Details Date Type Department Care Team (Latest Contact Info) Description 09/21/2021 Abstract [facility] CONVERSIONS Dental, Provider, DDS Social History Tobacco Use Types Packs/Day Years Used Date Smoking Tobacco: Never Assessed Comments Unknown Sex and Gender Information Value Date Recorded Sex Assigned at Female 04/29/2022 10:16 AM EDT Legal Sex Female 10:16 AM EDT Gender Identity Female 04/29/2022 10:16 AM EDT Sexual Orientation Straight 04/29/2022 10 :16 AM EDT documented as of this encounter Plan of Treatment Not on file documented as of this encounter Visit Diagnoses Not on filedocumented in this encounter Care Teams Front End Mechanic Relationship Specialty Start Date End Date Mary Campo ANP [address] [place] [id number] PCP - General Family Medicine 02/23/21 documented as of this encounter
--- OUTSIDE RECORDS SUMMARY | 2024-10-27 10:00 | XMS_ITS | Encounter Summary ---
Author Organization [employer] Address [address] [facility] [facility] [address] [place] [address] [address] Team Providers Care Drive Thru Order Taker Name Role Phone Mary Campo Primary Care Provider [phone] Encounter Details Date Type Department Care Team (Late st Contact Info) Description 09/16/2023 Orders Only [facility] [address] [place] [address] ProviderJessica MD Social History Tobacco Use Types Packs/Day Years Used Date Smoking Tobacco: Never Smokeless Tobacco: Never Alcohol Use Standard Drinks/Week Comments Never 0 (1 standard drink = 0.6 oz pur e alcohol) Housing Stability Answer Date Recorded What is your housing situation today? I have jayesh rashid 04/16/[address] you li ve. Do you have problems with any of the following? None of the above 04/16/2023 Food Insecurity Answer Date Recorded Within the past 12 months, y ou worried that your food would run out before you got money to buy more: Never True 04/16/2023 Within the past 12 months,th e food you bought just didn't last and you didn't have enough money to get more: Never True Transportation Answer Date Recorded In the past 12 months, has l ack of transportation kept you from medical appts, meetings, work or from getting things needed for daily living? No 04/16/2023 Utilities Answer Date Recorded In the past 12 months, has t he electric, gas, oil or water company threatened to shut off services in your home? No 04/16/2023 Depression Answer Date Recorded Patient Health Questionnaire-2 Score 0 11/05/2022 Comments Unknown Sex and Gender Information Value Date Recorded Sex Assigned at Female 04/29/2022 10:16 AM EDT Legal Sex Female 10:16 AM EDT Gender Identity Female 04/29/2022 10:16 AM EDT Sexual Orientation Straight 04/29/2022 10 :16 AM EDT documented as of this encounter Plan of Treatment Not on file documented as of this encounter Procedures Procedure Name Priority Date/Time Associated Diagnosis Comments HM COLONOSCOPY Routine 03/13/2017 4:26 PM EDT documented in this encounter Results * Hm Colonoscopy (03/13/2017 4:26 PM EDT) us Historical Provider HEALTH MAINTENANCE Final Result documented in this encounter Visit Diagnoses Not on filedocumented in this encounter Care Teams Drive Thru Order Taker Relationship Specialty Start Date End Date Mary Campo ANP [address] [place] [id number] PCP - General Family Medicine 02/23/21 documented as of this encounter
--- OUTSIDE RECORDS SUMMARY | 2024-10-27 10:00 | XMS_ITS | Clinical Summary ---
Author Organization [employer] Address [address] [facility] 7[address] [place] [address] Care Team Providers Care Telephone Repairer Name Role Phone Angel Valentin Primary Care Provider [phone] Allergies Active Allergy Reactions Criticality Noted Date Comments Hydrochlorothiazide Rash Low 12/23/2018 Other reaction(s): Rash Medications Spacer/Aero-Holding Chambers (OptiChamber Julia) misc 1 each every 4 (four) hours if needed (asthma). 1 each 09/28/19 23 Active esomeprazole (NexIUM) [address] capsuleIndications:Rachid roesophageal reflux disease, unspecified whether esophagitis present Take 1 capsule (20 mg) by mouth Once daily. 30 capsule 2 01/15/20 23 Active albuterol (Ventolin HFA) 108 (90 Base) MCG/ACT inhaler INHALE 2 PUFFS BY MOUTH EVERY 4 HOURS NEEDED FOR WHEEZING OR SHORTNESS OF BREATH 18 g 1 07/01/19 24 Active fluticasone furoate (Arnuity Ellipta) 100 MCG/ACT inhalerIndications:Mode rate persistent asthma, unspecified whether complicated INHALE 1 PUFF BY MOUTH ONCE DAILY 30 each 1 07/04/19 24 Active losartan (Cozaar) 50 MG tabletIndications:Benig n essential HTN TAKE 1 AND 1/2 TABLETS BY MOUTH DAILY IN THE MORNING 45 tablet 11 01/19/20 24 Active atorvastatin (Lipitor) 40 MG tabletIndications:Pure hypercholesterolemia TAKE 1 TABLET BY MOUTH EVERY DAY BEFORE BEDTIME 90 tablet 01/23/20 24 Active Aspirin Low Dose 81 MG chewable tabletIndications:Benig n essential HTN,Pure hypercholesterolemia CHEW AND SWALLOW 1 TABLET EVERY MORNING 90 tablet 06/03/20 24 Active Active Problems Problem Noted Date Diagnosed Date Tremor 04/01/2023 Asthma 10/28/2022 Prediabetes 10/28/2022 Hypertensive retinopathy 11/06/2021 Benign essential HTN 06/20/2014 Overview (12/03/2022): Fatigue from verapamil. Could not tolerate amlodipine d/t dizziness or HCTZ d/t rash per chart review. Constipation 02/15/2013 Polyarthropathy 12/31/2011 Gastroesophageal reflux disease 12/24/2011 Pure hypercholesterolemia 12/24/2011 Allergic rhinitis 06/30/1999 Seizure 06/30/1999 Immunizations Name Administration Dates Next Due Influenza High-dose Quadriva lent Preservative Free 03/31/2022,03/17/2021,03/10/2020 Influenza injectable quadriv alent IIV4 with preservative 03/27/2015 Influenza injectable quadriv alent preservative free 08/01/2016 Influenza, High Dose Seasona l, Preservative Free 05/06/2018 Influenza, IIV3, injectable 03/14/2014, 1 Influenza, Split (incl. samir fied surface antigen) 03/17/2013,05/06/2012 Moderna Covid-19 Vaccine 12+ 11/13/2021 Pneumococcal Conjugate PCV 13 09/19/2014 Pneumococcal Conjugate PCV 20 12/12/2022 Pneumococcal Polysaccharide PPSV23 08/01/2016 TD (adult), 2 Lf tetanus tox oid, preservative free, adsorbed 05/01/2021 Tdap 07/09/2010 Zoster, Recombinant 12/12/2022,10/11/2022 Zoster, live 09/19/2014 Social History Tobacco Use Types Packs/Day Years Used Date Smoking Tobacco: Never Smokeless Tobacco: Never Tobacco Cessation:Counseling Given: Not Answered Alcohol Use Standard Drinks/Week Comments Never 0 [...] Orientation Straight 04/29/2022 10 :16 AM EDT Last Filed Vital Signs Vital Sign Reading Time Taken Comments Blood Pressure 171/76 07/01/2023 11:36 AM EST Pulse 82 07/01/2023 11:36 AM EST Temperature 36.9 ??C (98.4 ??F) 07/01/2023 11:[address] Respiratory Rate 21 07/01/2023 11:36 AM EST Oxygen Saturation 98% 07/01/2023 11:36 AM EST Inhaled Oxygen Concentration - - Weight 67.9 kg (149 lb 9.6 oz) 07/01/2023 11:36 AM EST Height 157.5 cm (5' 2 ) 04/22/2023 9:36 AM EDT Body Mass Index 27.36 04/22/2023 9:36 AM EDT Plan of Treatment Health Maintenance Due Date Last Done Comments Alcohol/Substance Use Screening 1957 Hepatitis C Screening 1964 RSV Patients and Patients Aged 60 years or older (1 - 1-dose 75+ series) 2021 Mammogram 10/08/2023 10/07/2022, 08/29, 09/25/2021, Additional history exists Depression Screening 11/06/2023 11/05/2022, 11/06/19 23 SDOH Screening 11/06/2023 11/05/2022 Diabetes: Hemoglobin A1C 11/19/2023 023, 05/29/2021, 01/12/2020 COVID-19 Vaccine ( season) 2024 05/28/2022, 11/13/2021, 05/14/2021, Additional history exists Influenza Vaccine (#1) 2024 , 03/17/2021, 03/10/2020, Additional history exists Tobacco Screening 07/01/2024 07/01/2023 Lipid Panel 11/19/2027 11/18/2022, 05/02, 01/12/2020 DTaP/Tdap/Td Vaccines (3 - Td or Tdap) 05/01/2031 05/01/2021, 07/09/2010 Colonoscopy Discontinued 03/13/2017 Colorectal Cancer Screening Discontinued Pneumococcal Vaccine: 50+ Years Completed 12/12/2022, 08/01/2016, 09/19/2014 Zoster Vaccines Completed 12/12/2022, 09/28, 09/19/2014 CT Colonography Discontinued FIT DNA/Cologuard Discontinued FIT Discontinued FOBT Discontinued HIB Vaccines Aged Out No longer eligi ble based on patient's age to complete this topic HPV Vaccines Aged Out No longer eligi ble based on patient's age to complete this topic Hepatitis A Vaccines Aged Out No long er eligible based on patient's age to complete this topic Hepatitis B Vaccines Aged Out No long er eligible based on patient's age to complete this topic IPV Vaccines Aged Out No longer eligi ble based on patient's age to complete this topic Meningococcal Vaccine Aged Out No megha ld eligible based on patient's age to complete this topic RSV under 20 months Aged Out No longe r eligible based on patient's age to complete this topic Rotavirus Vaccines Aged Out No longer eligible based on patient's age to complete this topic Sigmoidoscopy Discontinued Procedures Procedure Name Priority Date/Time Associated Diagnosis Comments HEMOGLOBIN A1C Routine 11/18/2022 9:04 AM EDT Dyslipidemia Prediabetes LIPID PANEL, STANDARD Routine 11/18/2022 9:04 AM EDT Dyslipidemia BI MAMMOGRAM SCREENING TOMOSYNTHESIS BILATERAL Routine 10/07/2022 8:59 AM EDT COLONOSCOPY Routine 03/13/2017 4:26 PM EDT from Last 3 Months or Most Recently Relevant to Health Maintenance Results * Hemoglobin A1c (11/18/2022 9:04 AM EDT) Hemoglobin A1c 5.5 <5.7 % of total Hgb [facility] Comment: For the purpose of screening for the presence of diabetes: <5.7% ? Consistent with the absence of diabetes 5.7-6.4% ?Consistent with increased risk for diabetes ?(prediabetes) > or =6.5% ??Consistent with diabetes This assay result is consistent with a decreased risk of diabetes. Currently, no consensus exists regarding use of hemoglobin A1c for diagnosis of diabetes in children. According to [place] Diabetes Association (ADA) guidelines, hemoglobin A1c <7.0% represents optimal control in non- diabetic patients. Different metrics may apply to specific patient populations. Standards of Medical Care in Diabetes(ADA). ?? Blood Venous blood specimen / Unknown 11/18/2022 9:04 AM EDT 11/18/2022 9:04 AM EDT Narrative [facility] - 11/18/2022 11:01 PM EDT FASTING:YES FASTING: YES Angel Valentin [facility] LAB BLOOD ORDERABLES Final Resul t [facility] [address], [place] [address] [facility] [address] [place] [address] * (ABNORMAL) Lipid Panel, Standard (11/18/2022 9:04 AM EDT) Cholesterol, Total 203(H) <200 mg/dL [facility] HDL Cholesterol 73 > OR = 50 mg/dL [facility] Triglycerides 105 <150 mg/dL [facility] LDL Cholesterol 109(H) mg/dL (calc) [facility] Comment: Reference range: <100 Desirable range <100 mg/dL for primary prevention; ?? <70 mg/dL for patients with CHD or diabetic patients with > or = 2 CHD risk factors. LDL-C is now calculated using the Antonia calculation, which is a validated novel method providing better accuracy than the Friedewald equation in the estimation of LDL-C. Brayan SUAREZ et al. GREG. 2013;310(19): 6003-5786 (http://Scientific Intake.[employer]/faq/FHW319) Chol/HDLC Ratio 2.8 <5.0 (calc) [facility] Non-HDL Cholesterol 130(H) <130 mg/dL (calc) [facility] Comment: For patients with diabetes plus 1 major ASCVD risk factor, treating to a non-HDL-C goal of <100 mg/dL (LDL-C of <70 mg/dL) is considered a therapeutic option. Blood Venous blood specimen / Unknown 11/18/2022 9:04 AM EDT 11/18/2022 9:04 AM EDT Narrative [facility] - 11/18/2022 11:01 PM EDT FASTING:YES FASTING: YES [facility] LAB BLOOD ORDERABLES Final Resul t [facility] [address], [place] [address] [facility] [address] [place] [address] * BI Mammogram Screening Tomosynthesis Bilateral (10/07/2022 8:59 AM EDT) Anatomical Region Laterality Modality Breast Bilateral Mammography 10/07/2022 8:59 AM EDT Narrative 10/08/2022 12:48 PM EDT ? [facility] ? [address] ?[place] [address] ? Mammography Report ? Signed ? Patient: Powers,Cindy ?MR#: [id number] ?? [id number] ? : 1945 ?Acct:[id number] ? Age/Sex: 76 / F ?ADM Date: 04/10/23 ? Loc: HO.MAMMO ? Attending Dr: Angel Valentin TIRE RETREADER ? Ordering Physician: ANGEL VALENTIN NP ?Results: 1Negative ? Date of Service: 10/07/22 ?Follow Up: 1 Year From Orig ?? inal Mammogram ? Procedure(s): MM tomosynthesis screening BI ?? Accession Number(s): [id number] ? cc: ANGEL VALENTIN NP ? EXAMINATION: ?? MM SCREENING DIGITAL BREAST TOMOSYNTHESIS, BILATERAL ? CLINICAL INFORMATION: ? Screening. Asymptomatic. ? The lifetime risk of breast cancer based on the Tyrer-Cuzick Model is ?? 1%. ? COMPARISON: ?? Mammography: 09/25/2021, 06/12/2020, 06/10/2019 ? TECHNIQUE: ?? Digital breast tomosynthesis is performed in both the craniocaudal and ?? mediolateral oblique views along with computer-aided detection (CAD). ?? Synthesized 2D images are generated from the tomosynthesis. ??Additional ?? right MLO view is provided. ? FINDINGS: ?? There are scattered areas of fibroglandular density (ACR BI-RADS breast ?? composition Category b). ? There are no significant masses, abnormal calcifications, or other ?? abnormalities. ??No architectural abnormality or developing density or ?? significant change from prior studies. The axilla and skin contours are ?? unremarkable. ? MM/MM tomosynthesis screening BI ?? IMPRESSION: ?? No mammographic evidence of malignancy. ? ASSESSMENT: ? BI-RADS 1: Negative ? RECOMMENDATION: ?? Routine annual mammography screening. ? This patient's information was entered into a reminder system with a ?? target due date for their next mammogram. ? Dictated By: ?Marino Rodriguez MD ? Signed By: ?<Electronically signed by Marino Rodriguez MD in OV> ?/05/22 1245 ? DD/ 0859 ? TD/TT: ? Notch Grinder: MENA ? Procedure Note Donotuseinterpreter, Image - [facility] [address] [place] [address] Mammography Report Signed Patient: Cruzito oPwersR#: [id number] : 7Acct:[id number] Age/Sex: 76 / FADM Date: 10/07/22 Loc: HO.MAMMO Attending Dr: Angel Valentin NP Ordering Physician: ANGEL VALENTINesults: 1Negative Date of Service: 10/07/22Follow Up: 1 Year From Orig inal Mammogram Procedure(s): MM tomosynthesis screening BI Accession Number(s): [id number] cc: ANGEL VALENTIN NP EXAMINATION: MM SCREENING DIGITAL BREAST TOMOSYNTHESIS, BILATERAL CLINICAL INFORMATION: Screening. Asymptomatic. The lifetime risk of breast cancer based on the Tyrer-Cuzick Model is 1%. COMPARISON: Mammography: 09/25/2021, 06/12/2020, 06/10/2019 TECHNIQUE: Digital breast tomosynthesis is performed in both the craniocaudal and mediolateral oblique views along with computer-aided detection (CAD). Synthesized 2D images are generated from the tomosynthesis. Additional right MLO view is provided. FINDINGS: There are scattered areas of fibroglandular density (ACR BI-RADS breast composition Category b). There are no significant masses, abnormal calcifications, or other abnormalities. No architectural abnormality or developing density or significant change from prior studies. The axilla and skin contours are unremarkable. MM/MM tomosynthesis screening BI IMPRESSION: No mammographic evidence of malignancy. ASSESSMENT: BI-RADS 1: Negative RECOMMENDATION: Routine annual mammography screening. This patient's information was entered into a reminder system with a target due date for their next mammogram. Dictated By: Marino Rodriguez MD Signed By: <Electronically signed by Marino Rodriguez MD in OV> 10/08/22 1245 DD/ 0859 TD/TT: Notch Grinder: RAJESH [facility] External Provider IMG BI PROCEDURES Final Result * Hm Colonoscopy (03/13/2017 4:26 PM EDT) Historical Provider HEALTH MAINTENANCE Final Result from Last 3 Months or Most Recently Relevant to Health Maintenance Insurance [facility] MEDICARE ADVANTAGE HMO FORMERLY [facility] DETENTION OPTIONS (O D-SNP) Care Teams Telephone Repairer Relationship Specialty Start Date End Date Angel Valentin ANP [address] [place] [address] [phone] PCP - General Family Medicine 02/23/21
== END 2024-10-27 09:39 | disposition home or self-care (01) ==
LOC: HO.HGI 09:22
PROVIDERS: PCP Nurse Practitioner Primary Care; Visit Provider Nurse Practitioner
DX: K21.9 Gastro-esophageal reflux disease without esophagitis (principal); K59.04 Chronic idiopathic constipation
CPT/HCPCS: 99213

== ENCOUNTER → 2024-10-27 09:22 | Outpatient (BNVA) | payer MEDICARE, SELFPAY | PROVIDERS: PCP Nurse Practitioner Primary Care; Visit Provider Nurse Practitioner | DX: K29.60 Other gastritis without bleeding (principal); K59.04 Chronic idiopathic constipation; K21.9 Gastro-esophageal reflux disease without esophagitis; A04.8 Other specified bacterial intestinal infections | CPT/HCPCS: 99212 ==

== ENCOUNTER 2025-02-08 10:32 | Outpatient (REF) | payer MEDICARE, SELFPAY ==
--- NOTE | ~2025-02-08 | XR_ITS ---
EXAMINATION: XR WRIST, LEFT CLINICAL INFORMATION: pain after fall COMPARISON: None available. TECHNIQUE: PA, lateral, and oblique views of the left wrist. FINDINGS: There is a cortical disruption involving the distal epiphysis and metaphysis of the left radius with extension into the articular surface. There is minimal dorsal angulation. The carpal bones are intact. Degenerative changes in the first carpometacarpal joint. Probable fracture in the styloid process of the left ulna. No subcutaneous emphysema. XR/XR wrist LT min 3V IMPRESSION: Intra-articular comminuted minimally dorsally angulated fracture, distal epiphysis and metaphysis of the left radius. Electronically signed by: Kehinde Dee MD 02/08/2025 12:21 PM EDT
--- NOTE | ~2025-02-08 | XR_ITS ---
EXAMINATION: XR SHOULDER, LEFT CLINICAL INFORMATION: pain s/p fall COMPARISON: None available. TECHNIQUE: AP external rotation, Grashey, scapular Y, and axillary views of the left shoulder. FINDINGS: Degenerative changes in the acromioclavicular joint and greater tuberosity of the humerus as well as the inferior glenoid of the scapula. Osteopenia versus osteoporosis. No acute cortical disruption or malalignment. 3 mm calcified nodule left lung. XR/XR shoulder LT min 2V IMPRESSION: Degenerative changes without acute fracture or dislocation. 3 mm granuloma, left lung. Electronically signed by: Kehinde Dee MD 02/08/2025 12:18 PM EDT
--- OUTSIDE RECORDS SUMMARY | 2025-02-08 11:37 | XMS_ITS | Clinical Summary ---
Author Organization [employer] Address [address] [facility] [address] [place] [address] Care Team Providers Care Fisheries Technical Officer Name Role Phone Angel Valentin Primary Care Provider [phone] Allergies Active Allergy Reactions Criticality Noted Date [...] HTN,Pure hypercholesterolemia CHEW AND SWALLOW 1 TABLET BY MOUTH EVERY MORNING 90 tablet 10/29/19 25 Active Active Problems Problem Noted Date Diagnosed Date Acute pain of left shoulder 02/08/2025 Left wrist pain 02/08/2025 Tremor 04/01/2023 Asthma 10/28/2022 Prediabetes 10/28/2022 Hypertensive retinopathy 11/06/2021 Benign essential HTN 06/20/2014 Overview (12/03/2022): Fatigue from verapamil. Could not tolerate amlodipine d/t dizziness or HCTZ d/t rash per chart review. Constipation 02/15/2013 Polyarthropathy 12/31/2011 Gastroesophageal reflux disease 12/24/2011 Pure hypercholesterolemia 12/24/2011 Allergic rhinitis 06/30/1999 Seizure 06/30/1999 Encounters Date Type Department Care Team Description 02/08/2025 10:00 AM EDT Office Visit [facility] [address] [place] [address] Acute pain of left shoulder (Primary Dx); Left wrist pain; Benign essential HTN 02/08/2025 Travel 01/18/2025 Travel 12/17/[address] [facility] [address] [place] [address] Rain Gallardo MD Benign essential HTN (Primary Dx) from Last 3 Months Immunizations Immunization Administration Dates Next Due Influenza High-dose Quadriva [...] Sign Reading Time Taken Comments Blood Pressure 141/91 02/08/2025 9:41 AM EDT Pulse 87 02/08/2025 9:41 AM EDT Temperature 36.6 C (97.9 F) 02/08/2025 9:41 AM EDT Respiratory Rate 16 02/08/2025 9:41 AM EDT Oxygen Saturation 98% 02/08/2025 9:41 AM EDT Inhaled Oxygen Concentration - - Weight 64 kg (141 lb) 02/08/2025 9:41 AM EDT Height 157.5 cm (5' 2 ) 04/22/2023 9:36 AM EDT Body Mass Index 25.79 04/22/2023 9:36 AM EDT Plan of Treatment Upcoming Encounters Date Type Department Care Team (Late st Contact Info) Description 04/05/2025 9:15 AM EDT Office Visit [facility] [address] [place] [address] Angel Valentin ANP [address] [place] [address] Health Maintenance Due Date Last Done Comments [...] 05/14/2021, Additional history exists Influenza Vaccine (#1) 2025 , 03/17/2021, 03/10/2020, Additional history exists Tobacco Screening 02/08/2026 02/08/2025 Lipid Panel 11/19/2027 11/18/2022, 05/02, 01/12/2020 DTaP/Tdap/Td [...] patient's age to complete this topic Meningococcal B Vaccine Aged Out No l onger eligible based on patient's age to complete [...] TOMOSYNTHESIS BILATERAL Routine 10/07/2022 8:59 AM EDT HM COLONOSCOPY Routine 03/13/2017 4:26 PM EDT from Last 3 Months or Most Recently Relevant to Health Maintenance Results * Hemoglobin A1c (11/18/2022 9:04 AM EDT) Hemoglobin A1c 5.5 <5.7 % of total Hgb [facility] Comment: For the purpose of screening for the presence of diabetes: <5.7% Consistent with the absence of diabetes 5.7-6.4% Consistent with increased risk for diabetes (prediabetes) > or =6.5% Consistent with diabetes This assay result is consistent with a decreased risk of diabetes. Currently, no consensus exists regarding use of hemoglobin A1c for diagnosis of diabetes in children. According to [place] Diabetes Association (ADA) guidelines, hemoglobin A1c <7.0% represents optimal control in non- diabetic patients. Different metrics may apply to specific patient populations. Standards of Medical Care in Diabetes(ADA). Blood Venous blood specimen / Unknown 11/18/2022 9:04 AM EDT 11/18/2022 9:04 AM EDT Narrative [facility] - 11/18/2022 11:01 PM EDT FASTING:YES FASTING: YES us Angel Valentin [facility] LAB BLOOD ORDERABLES Final Resul t [facility] [address] [facility], [place] [address] [facility] [place] [employer] [address] [place] [address] * (ABNORMAL) Lipid Panel, Standard (11/18/2022 9:04 AM EDT) Cholesterol, Total 203(H) <200 mg/dL [facility] [place] [employer] HDL Cholesterol 73 > OR = 50 mg/dL [facility] [place] [employer] Triglycerides 105 <150 mg/dL [facility] [place] [employer] LDL Cholesterol 109(H) mg/dL (calc) [facility] [place] [employer] Comment: Reference range: <100 Desirable range <100 mg/dL for primary prevention; <70 mg/dL for patients with CHD or diabetic patients with > or = 2 CHD risk factors. LDL-C is now calculated using the Brayan-Jeanine calculation, which is a validated novel method providing better accuracy than the Friedewald equation in the estimation of LDL-C. Brayan SS et al. GREG. 2013;310(19): 5264-9459 (http://education.[employer]/faq/ZXX519) Chol/HDLC Ratio 2.8 <5.0 (calc) [facility] [place] [facility] Non-HDL Cholesterol 130(H) <130 mg/dL (calc) [facility] [place] [employer] Comment: For patients with diabetes plus 1 major ASCVD risk factor, treating to a non-HDL-C goal of <100 mg/dL (LDL-C of <70 mg/dL) is considered a therapeutic option. Blood Venous blood specimen / Unknown 11/18/2022 9:04 AM EDT 11/18/2022 9:04 AM EDT Narrative [facility] - 11/18/2022 11:01 PM EDT FASTING:YES FASTING: YES us Angel Valentin [facility] LAB BLOOD ORDERABLES Final Resul t Performing Organization Address City/State/[facility] Co de Phone Number [facility] [address] [facility], [facility], [place] [address] [facility] [address] [place] [address] * BI Mammogram Screening Tomosynthesis Bilateral (10/07/2022 8:59 AM EDT) Anatomical Region Laterality Modality Breast Bilateral Mammography 10/07/2022 8:59 AM EDT Narrative 10/08/2022 12:48 PM EDT [facility] [address] [place] [address] Mammography Report Signed Patient: Cindy Powers MR#: [id number] : 1945 Acct:[id number] Age/Sex: 76 / F ADM Date: 10/07/22 Loc: HO.MAMMO Attending Dr: Angel Valentin NP Ordering Physician: ANGEL VALENTIN NP Results: 1Negative Date of Service: 10/07/22 Follow Up: 1 Year From Orig inal Mammogram Procedure(s): MM tomosynthesis screening BI Accession Number(s): [id number] cc: ANGEL VALENTIN NP EXAMINATION: MM SCREENING [...] in OV> 10/08/22 1245 DD/ 0859 TD/TT: Phlebotomist Associate: MENA Procedure Note Donotuseinterpreter, Image - 10/08/2022 [facility]'s [address] [place] [address] Mammography Report Signed Patient: Juan Powers#: [id number] : 7Acct:[id number] Age/Sex: 76 / FADM Date: 10/07/22 Loc: HO.MAMMO Attending Dr: Angel Valentin NP Ordering Physician: ANGEL VALENTIN NPResults: 1Negative Date of Service: 10/07/22Follow Up: 1 Year From Orig inal Mammogram Procedure(s): MM tomosynthesis screening BI Accession Number(s): [id number] cc: ANGEL VALENTIN NP EXAMINATION: MM SCREENING [...] in OV> 10/08/22 1245 DD/ 0859 TD/TT: Phlebotomist Associate: RAJESH [facility] External Provider IMG BI PROCEDURES Final Result * Hm Colonoscopy (03/13/2017 4:26 PM EDT) Historical Provider HEALTH MAINTENANCE Final Result from Last 3 Months or Most Recently Relevant to Health Maintenance Insurance [employer] MEDICARE REPLACEMENT Care Teams Fisheries Technical Officer Relationship Specialty Start Date End Date Angel Valentin ANP [address] [place] [address] PCP - General Family Medicine 02/23/21
== END 2025-02-08 10:33 | disposition home or self-care (01) ==
LOC: HO.HHCX 10:32
PROVIDERS: Visit Provider Internal Medicine
DX: M25.512 Pain in left shoulder (principal); M25.532 Pain in left wrist
CPT/HCPCS: 73030; 73110

== ENCOUNTER 2025-02-17 08:16 | Outpatient (REF) | payer MEDICARE, SELFPAY ==
--- NOTE | ~2025-02-17 | XR_ITS ---
EXAMINATION: XR WRIST, LEFT CLINICAL INFORMATION: M25.532 - Pain in left wrist COMPARISON: February 08, 2025 TECHNIQUE: PA, lateral, and oblique views of the left wrist. FINDINGS: There is no periosteal bone reaction or callus formation within the intra-articular fracture of the distal epiphysis metaphysis left radius. Degenerative changes in the first carpometacarpal joint and the proximal and distal interphalangeal joints of the included digits. Osteopenia versus osteoporosis. Probable fracture of styloid process. XR/XR wrist LT min 3V IMPRESSION: No obvious healing. Electronically signed by: Kehinde Dee MD 02/17/2025 09:02 AM EDT
== END 2025-02-17 08:17 | disposition home or self-care (01) ==
LOC: HO.HOSX 08:16
DX: S52.502A Unspecified fracture of the lower end of left radius, initial encounter for closed fracture (principal); M25.532 Pain in left wrist; W01.198A Fall on same level from slipping, tripping and stumbling with subsequent striking against other object, initial encounter; Y92.009 Unspecified place in unspecified non-institutional (private) residence as the place of occurrence of the external cause
CPT/HCPCS: 25600; 73110; 99202

== ENCOUNTER 2025-02-17 08:28 | Outpatient (AMB) | payer MEDICARE, SELFPAY ==
[2025-02-17 08:48] VITALS: BMI 26.0
--- NOTE | 2025-02-17 08:48 | A.OFFVIS_ITS ---
Vital Signs 02/17/25 08:48 Height 5 ft 2 in Weight 142 lb BMI 26.0 Intake Visit Reasons: FC-left wrist distal radius fx DOI 02/04/25 Intake Note: Cindy is a 79 year old right hand dominant female who presents today, with her sister Tere, as a new patient for evaluation of a left distal radius fracture, DOI: 02/04/25. Patient evaluated by [facility] on 02/08/25 where she reported she fell on her room and hit her face. Patient states the pain primarily on the dorsal aspect of the left wrist. She reports previous numbness and tingling. Denies finger locking. She has been taking Naproxen with relief. Denies previous injuries or surgeries to the left hand. Patient and sister report she was not placed on any form of splint/cast or wrist brace. 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 Patient evaluated by [facility] on 02/08/25 where she reported she fell on her room and hit her face. Patient states the pain primarily on the dorsal aspect of the left wrist. She reports previous numbness and tingling. Denies finger locking. She has been taking Naproxen with relief. Denies previous injuries or surgeries to the left hand. Patient and sister report she was not placed on any form of splint/cast or wrist brace. [facility] Medical History Seizure disorder Hypertension Asthma GERD (gastroesophageal reflux disease) High cholesterol Polyarthritis Osteoporosis Surgical History History of esophagogastroduodenoscopy (EGD) H/O abdominal surgery H/O colonoscopy Social History (System 02/15/25 @ 09:14 by Sarah Downing CNA) Patient Tobacco Use Status: Never used Tobacco Review of Systems Const All systems reviewed & are unremarkable except as noted in HPI and below Physical Exam Vital Signs: BMI result Body Mass Index 26.0 Extrem Other: Patient is alert, oriented, and in no acute distress. Neuro: Normal sensation of the tips of all digits of the left hand at this time Vascular: Cap refill brisk Pain: Significant tenderness to palpation about the left distal radius No tenderness to palpation of the left anatomical snuffbox or scaphoid tubercle No tenderness to palpation of the left distal ulna ROM: Patient is able to make a closed fist and extend all digits of the left hand fully and without difficulty Skin: No lacerations or abrasions. General: Significant edema noted of the left wrist No erythema, ecchymosis, evidence of infection Psych: Appears grossly normal Affect normal Attitude cooperative Results Reviewed Results Reviewed: X-rays obtained in the office today and independently reviewed by me, Sai Garcia PA-C, demonstrate minimally displaced fracture of the left distal radius with approximately 2-3 degrees of apex volar angulation. Assessment & Plan Assessment & Plan (1) Fracture of left distal radius: Code(s): S52.502A - Unspecified fracture of the lower end of left radius, initial encounter for closed fracture Category: Medical Plan 1. Left distal radius fracture Date of injury 02/04/2025 Patient is educated about this condition The patient is educated about the typical treatment course for non or minimally displaced fractures, namely splinting, followed by casting, followed by gradual decreasing in immobilization Patient is educated that given the current alignment of her fracture, there is no surgical intervention indicated at this time, however if there is further displacement before her next visit there is a chance she will require surgery Patient states understanding of this Patient is educated she should be limiting any weight-bearing in the left hand and wrist as much as possible Patient is placed into a volar short-arm splint Patient educated on proper splint care and precautions Follow-up in 1 week with repeat x-rays, anticipate cast placement at that time, sooner with any acute concerns Orders: Orders XR wrist LT min 3V Today M25.532 - Pain in left wrist Coding Level of Care Code New Pt Level 3 (97054) Diagnoses Fracture of left distal radius S52.502A
--- OUTSIDE RECORDS SUMMARY | 2025-02-17 09:21 | XMS_ITS | Clinical Summary ---
Author Organization [employer] Address [address] [place] [address] Care Team Providers Care Front End Developer Javascript Html Css Name Role Phone Angel Valentin Primary Care Provider [phone] Allergies Active Allergy Reactions Criticality Noted Date Comments Hydrochlorothiazide Rash Low 12/23/2018 Other reaction(s): Rash Medications Spacer/Aero-Holding Chambers (OptiChamber Julia) misc 1 each every 4 (four) hours if needed (asthma). 1 each 023 Active esomeprazole (NexIUM) [address] capsuleIndications:Gas troesophageal reflux disease, unspecified whether esophagitis present Take 1 capsule (20 mg) by mouth Once daily. 30 capsule 2 023 Active albuterol (Ventolin HFA) 108 (90 Base) MCG/ACT inhaler INHALE 2 PUFFS BY MOUTH EVERY 4 HOURS NEEDED FOR WHEEZING OR SHORTNESS OF BREATH 18 g 1 024 Active fluticasone furoate (Arnuity Ellipta) 100 MCG/ACT inhalerIndications:Mod erate persistent asthma, unspecified whether complicated INHALE 1 PUFF BY MOUTH ONCE DAILY 30 each 1 024 Active atorvastatin (Lipitor) 40 MG tabletIndications:Pure hypercholesterolemia TAKE 1 TABLET BY MOUTH EVERY DAY BEFORE BEDTIME 90 tablet 024 Active Aspirin Low Dose 81 MG chewable tabletIndications:Beau gn essential HTN,Pure hypercholesterolemia CHEW AND SWALLOW 1 TABLET BY MOUTH EVERY MORNING 90 tablet 025 Active losartan (Cozaar) 50 MG tabletIndications:Beau gn essential HTN TAKE 1 AND 1/2 TABLETS BY MOUTH IN THE MORNING 45 tablet 1 025 Active losartan (Cozaar) 50 MG tabletIndications:Beau gn essential HTN TAKE 1 AND 1/2 TABLETS BY MOUTH DAILY IN THE MORNING 45 tablet 11 024 2024 Discontinued Active Problems Problem Noted Date Diagnosed Date Acute pain of left shoulder 02/08/2025 Assessment & Plan (02/08/2025 2:07 PM EDT): I will order XRAY and contact patient with results Patient is taking alive (naproxen) I advise max dose is 2 tablets every 12hrs with full stomach Left wrist pain 02/08/2025 Subconjunctival hemorrhage of left eye Assessment & Plan (02/08/2025 2:08 PM EDT): Vision is normal no red flags, patient reassured Tremor 04/01/2023 Asthma 10/28/2022 Prediabetes 10/28/2022 Hypertensive retinopathy 11/06/2021 Benign essential HTN 06/20/2014 Overview (12/03/2022): Fatigue from verapamil. Could not tolerate amlodipine d/t dizziness or HCTZ d/t rash per chart review. Assessment & Plan (02/08/2025 2:06 PM EDT): I advised low Na diet, take medication every day without missing any dose, monitor BP at home and f/u with PCP Constipation 02/15/2013 Polyarthropathy 12/31/2011 Gastroesophageal reflux disease 12/24/2011 Pure hypercholesterolemia 12/24/2011 Allergic rhinitis 06/30/1999 Seizure 06/30/1999 Encounters Date Type Department Care Team Description 02/17/2025 Telephone [facility] [address] [place] [address] Angel Valentin ANP Call Back Request 02/16/2025 Refill [facility] [address] [place] [address] Angel Valentin ANP Benign essential HTN 02/08/2025 10:00 AM EDT Office Visit [facility] [address] [place] [address] Lucita Stevens MD Acute pain of left shoulder (Primary Dx); Left wrist pain; Benign essential HTN; Subconjunctival hemorrhage of left eye 02/08/2025 Results Follow-Up [facility] [address] [place] [address] Lucita Stevens MD XR Wrist 3+ Views Left 02/08/2025 Travel 01/18/2025 Travel 12/17/2024 Orders Only [facility] [address] [place] [address] Rain Gallardo MD Benign essential HTN (Primary [...] Description 04/05/2025 9:15 AM EDT Office Visit [facility] [address], [place] [phone] Angel Valentin ANP [address] [place], [place] [phone] Health Maintenance Due Date Last Done Comments Alcohol/Substance Use Screening 1958 Hepatitis C Screening 1964 RSV Patients and Patients Aged 60 years or older (1 - 1-dose 75+ series) 2021 Mammogram 10/08/2023 10/07/2022, 08/29, 09/25/2021, Additional history exists Depression Screening 11/06/2023 11/05/2022, 11/06/19 SDOH Screening 11/06/2023 11/05/2022 Diabetes: Hemoglobin A1C [...] Procedure Name Priority Date/Time Associated Diagnosis Comments XR WRIST 3+ VIEWS LEFT Routine 10:03 AM EDT Left wrist pain XR SHOULDER 2+ VIEWS LEFT Routine 02/08/2025 10:01 AM EDT Acute pain of left shoulder HEMOGLOBIN A1C Routine 11/18/2022 9:04 AM EDT Dyslipidemia Prediabetes LIPID PANEL, STANDARD Routine 11/18/2022 9:04 AM EDT Dyslipidemia BI MAMMOGRAM SCREENING TOMOSYNTHESIS BILATERAL Routine 10/07/2022 8:59 AM EDT HM COLONOSCOPY Routine 03/13/2017 4:26 PM EDT from Last 3 Months or Most Recently Relevant to Health Maintenance Results * XR Wrist 3+ Views Left (02/08/2025 10:03 AM EDT) Anatomical Region Laterality Modality Upper Extremities, Wrist Left Radiogr aphic Imaging 02/08/2025 10:0 3 AM EDT Narrative 02/08/2025 12:24 [place] [address] XRay Report Signed Patient: Cindy Powers MR#: [id number] : 1945 Acct:[id number] Age/Sex: 79 / F ADM Date: 02/08/25 Loc: .HHCX Attending Dr: Lucita Rios MD Ordering Physician: Lucita Stevens MD Date of Service: 02/08/25 Procedure(s): XR wrist LT min 3V Accession Number(s): [id number] cc: Lucita Stevens MD EXAMINATION: XR WRIST, LEFT CLINICAL INFORMATION: pain after fall COMPARISON: None available. TECHNIQUE: PA, lateral, and oblique views of the left wrist. FINDINGS: There is a cortical disruption involving the distal epiphysis and metaphysis of the left radius with extension into the articular surface. There is minimal dorsal angulation. The carpal bones are intact. Degenerative changes in the first carpometacarpal joint. Probable fracture in the styloid process of the left ulna. No subcutaneous emphysema. XR/XR wrist LT min 3V IMPRESSION: Intra-articular comminuted minimally dorsally angulated fracture, distal epiphysis and metaphysis of the left radius. Electronically signed by: Kehinde Dee MD 02/08/2025 12:21 PM EDT RP Dictated By: Kehinde Cash MD Signed By: <Electronically signed by Kehinde Vital MD in OV> 02/08/25 1221 DD/ 1003 TD/TT: 02/08/25 1020 Day Habilitation Specialist: Procedure Note Donotuseinterpreter, Image - 02/15/2025 [place] [address] XRay Report Signed Patient: Cindy Powers#: [id number] : 7Acct:[id number] Age/Sex: 79 / FADM Date: 02/08/25 Loc: HO.HHCX Attending Dr: Lucita Rios MD Ordering Physician: Lucita Stevens MD Date of Service: 02/08/25 Procedure(s): XR wrist LT min 3V Accession Number(s): [id number] cc: Lucita Stevens MD EXAMINATION: XR WRIST, LEFT CLINICAL INFORMATION: pain after fall COMPARISON: None available. TECHNIQUE: PA, lateral, and oblique views of the left wrist. FINDINGS: There is a cortical disruption involving the distal epiphysis and metaphysis of the left radius with extension into the articular surface. There is minimal dorsal angulation. The carpal bones are intact. Degenerative changes in the first carpometacarpal joint. Probable fracture in the styloid process of the left ulna. No subcutaneous emphysema. XR/XR wrist LT min 3V IMPRESSION: Intra-articular comminuted minimally dorsally angulated fracture, distal epiphysis and metaphysis of the left radius. Electronically signed by: Kehinde Dee MD 02/08/2025 12:21 PM EDT RP Dictated By: Kehinde Cash MD Signed By: <Electronically signed by Kehinde Vital MDin OV> 02/08/25 1221 DD/ 1003 TD/TT: 02/08/25 1020 Day Habilitation Specialist: Lucita Rios MD IMG XR PROCEDURES Fernando svitlana Result - Final * XR Shoulder 2+ Views Left (02/08/2025 10:01 AM EDT) Anatomical Region Laterality Modality Upper Extremities, Shoulder Left Radi ographic Imaging 02/08/2025 10:0 1 AM EDT Narrative 02/08/2025 12:20 PM EDT [address] [address] XRay Report Signed Patient: Cindy Powers MR#: [id number] : 1945 Acct:[id number] Age/Sex: 79 / F ADM Date: 02/08/25 Loc: HO.HHCX Attending Dr: Lucita Rios MD Ordering Physician: Lucita Stevens MD Date of Service: 02/08/25 Procedure(s): XR shoulder LT min 2V Accession Number(s): [id number] cc: Lucita Stevens MD EXAMINATION: XR SHOULDER, LEFT CLINICAL INFORMATION: pain s/p fall COMPARISON: None available. TECHNIQUE: AP external rotation, Grashey, scapular Y, and axillary views of the left shoulder. FINDINGS: Degenerative changes in the acromioclavicular joint and greater tuberosity of the humerus as well as the inferior glenoid of the scapula. Osteopenia versus osteoporosis. No acute cortical disruption or malalignment. 3 mm calcified nodule left lung. XR/XR shoulder LT min 2V IMPRESSION: Degenerative changes without acute fracture or dislocation. 3 mm granuloma, left lung. Electronically signed by: Kehinde Dee MD 02/08/2025 12:18 PM EDT RP Dictated By: Kehinde Cash MD Signed By: <Electronically signed by Kehinde Vital MD in OV> 02/08/258 DD/ 1001 TD/TT: 02/08/25 1020 Day Habilitation Specialist: Procedure Note Donotjeromeinterpreter, Image - 02/15/[address] [address] XRay Report Signed Patient: Cindy Powers#: [id number] : 7Acct:[id number] Age/Sex: 79 / FADM Date: 02/08/25 Loc: HO.HHCX Attending Dr: Lucita Rios MD Ordering Physician: Lucita Stevens MD Date of Service: 02/08/25 Procedure(s): XR shoulder LT min 2V Accession Number(s): [id number] cc: Lucita Stevens MD EXAMINATION: XR SHOULDER, LEFT CLINICAL INFORMATION: pain s/p fall COMPARISON: None available. TECHNIQUE: AP external rotation, Grashey, scapular Y, and axillary views of the left shoulder. FINDINGS: Degenerative changes in the acromioclavicular joint and greater tuberosity of the humerus as well as the inferior glenoid of the scapula. Osteopenia versus osteoporosis. No acute cortical disruption or malalignment. 3 mm calcified nodule left lung. XR/XR shoulder LT min 2V IMPRESSION: Degenerative changes without acute fracture or dislocation. 3 mm granuloma, left lung. Electronically signed by: Kehinde Dee MD 02/08/2025 12:18 PM EDT RP Dictated By: Kehinde Cash MD Signed By: <Electronically signed by Kehinde Vital MDin OV> 02/08/25 1218 DD/ 1001 TD/TT: 02/08/25 1020 Day Habilitation Specialist: us Lucita Rios MD IMG XR PROCEDURES Fernando svitlana Result - Final * Hemoglobin A1c (11/18/2022 9:04 AM EDT) Hemoglobin A1c 5.5 <5.7 % of total Hgb [email or web address] Comment: For the purpose of screening for the presence of diabetes: <5.7% Consistent with the absence of diabetes 5.7-6.4% Consistent with increased risk for diabetes (prediabetes) > or =6.5% Consistent with diabetes This assay result is consistent with a decreased risk of diabetes. Currently, no consensus exists regarding use of hemoglobin A1c for diagnosis of diabetes in children. According to [place] Diabetes Association (ADA) guidelines, hemoglobin A1c <7.0% represents optimal control in non- diabetic patients. Different metrics may apply to specific patient populations. Standards of Medical Care in Diabetes(ADA). Blood Venous blood specimen / Unknown 11/18/2022 9:04 AM EDT 11/18/2022 9:04 AM EDT Narrative [facility] - 11/18/2022 11:01 PM EDT FASTING:YES FASTING: YES [facility] LAB BLOOD ORDERABLES Final Resul t [facility] [address], [place] [address] [email or web address] [address] [place] [address] * (ABNORMAL) Lipid Panel, Standard (11/18/2022 9:04 AM EDT) Cholesterol, Total 203(H) <200 mg/dL [email or web address] HDL Cholesterol 73 > OR = 50 mg/dL [email or web address] Triglycerides 105 <150 mg/dL [email or web address] LDL Cholesterol 109(H) mg/dL (calc) [email or web address] Comment: Reference range: <100 Desirable range <100 mg/dL for primary prevention; <70 mg/dL for patients with CHD or diabetic patients with > or = 2 CHD risk factors. LDL-C is now calculated using the Antonia calculation, which is a validated novel method providing better accuracy than the Friedewald equation in the estimation of LDL-C. Brayan SUAREZ et al. GREG. 2013;310(19): 8499-2740 (http://education.DocLogix/faq/JUY588) Chol/HDLC Ratio 2.8 <5.0 (calc) [email or web address] Non-HDL Cholesterol 130(H) <130 mg/dL (calc) [email or web address] Comment: For patients with diabetes plus 1 major ASCVD risk factor, treating to a non-HDL-C goal of <100 mg/dL (LDL-C of <70 mg/dL) is considered a therapeutic option. Blood Venous blood specimen / Unknown 11/18/2022 9:04 AM EDT 11/18/2022 9:04 AM EDT Narrative [facility] - 11/18/2022 11:01 PM EDT FASTING:YES FASTING: YES Angel Valentin ANP LAB BLOOD ORDERABLES Final Resul t [facility] [address], [place] [address] [email or web address] [address] [place] [address] * BI Mammogram Screening Tomosynthesis Bilateral (10/07/2022 8:59 AM EDT) Anatomical Region Laterality Modality Breast Bilateral Mammography 10/07/2022 8:59 AM EDT Narrative 10/08/2022 12:48 PM EDT [facility] [address] [place] [address] Mammography Report Signed Patient: Cindy Powers MR#: [id number] : 1945 Acct:[id number] Age/Sex: 76 / F ADM Date: 10/07/22 Loc: MAMMO Attending Dr: Angel Valentin NP Ordering Physician: ANGEL VALENTIN NP Results: 1Negative Date of Service: 10/07/22 Follow Up: 1 Year From Orig inal Mammogram Procedure(s): MM tomosynthesis screening BI Accession Number(s): [id number] cc: ANGEL VALENTIN NP EXAMINATION: MM SCREENING [...] in OV> 10/08/22 1245 DD/ 0859 TD/TT: Day Habilitation Specialist: MENA Procedure Note Donotuseinterpreter, Image - 10/08/2022 [facility] [address] [place], [place] [address] Mammography Report Signed Patient: Juan Powers#: [id number] : 7Acct:[id number] Age/Sex: 76 / FADM Date: 10/07/22 Loc: HO.MAMMO Attending Dr: Angel Valentin NP Ordering Physician: ANGEL VALENTIN NPResults: 1Negative Date of Service: 10/07/22Follow Up: 1 Year From Orig inal Mammogram Procedure(s): MM tomosynthesis screening BI Accession Number(s): [id number] cc: ANGEL VALENTIN NP EXAMINATION: MM SCREENING [...] in OV> 10/08/22 1245 DD/ 0859 TD/TT: Day Habilitation Specialist: RAJESH [facility] External Provider IMG BI PROCEDURES Final Result * Hm Colonoscopy (03/13/2017 4:26 PM EDT) Historical Provider HEALTH MAINTENANCE Final Result from Last 3 Months or Most Recently Relevant to Health Maintenance Insurance [employer] MED[employer]ARE REPLACEMENT Care Teams Front End Developer Javascript Html Css Relationship Specialty Start Date End Date Angel Valentin ANP [address] [place] [address] PCP - General Family Medicine 02/23/21
== END 2025-02-17 09:40 | disposition home or self-care (01) ==
LOC: HO.HOS 08:28
DX: S52.592A Other fractures of lower end of left radius, initial encounter for closed fracture (principal)
CPT/HCPCS: 25600; 99203

== ENCOUNTER → 2025-02-17 08:29 | Outpatient (BNV) | payer MEDICARE, SELFPAY | PROVIDERS: Visit Provider Radiology Diagnostic Radiology | DX: M25.532 Pain in left wrist (principal) | CPT/HCPCS: 73110 ==

== ENCOUNTER 2025-02-25 10:08 | Outpatient (REF) | payer MEDICARE, SELFPAY ==
--- NOTE | ~2025-02-25 | XR_ITS ---
EXAMINATION: XR WRIST 3 OR MORE VIEWS LEFT HISTORY: M25.532 - Pain in left wrist COMPARISON: Comparison is made with the prior examination dated 02/17/2025. FINDINGS: Three views of the left wrist are submitted. Osseous mineralization is normal. Again seen is a comminuted intra-articular fracture of the distal radius. The fracture line appears more prominent than on the prior study, particularly at the ulnar aspect of the distal radius. There is a fracture of the styloid without change. There is moderate degenerative change of the 1st carpometacarpal joint, with joint space narrowing. The soft tissues are unremarkable. XR/XR wrist LT min 3V IMPRESSION: Comminuted intra-articular fracture of the distal radius which appears more prominent than on the prior study. Electronically signed by: Cory Leung MD 02/25/2025 11:44 AM EDT
--- OUTSIDE RECORDS SUMMARY | 2025-03-01 11:36 | XMS_ITS | Clinical Summary ---
Author Organization [employer] Address 75 [facility] 7t [place] [address] Care Team Providers Care Personal Care Aide Name Role Phone Angel Valentin Primary Care Provider [phone] Allergies Active Allergy Reactions Criticality Noted Date [...] Type Department Care Team Description 02/17/2025 Telephone [facility] MEDICINE [address] [place] [address] Angel Valentin ANP Call Back Request 02/16/2025 Refill [facility] MEDICINE [address] [place] [address] Angel Valentin ANP Benign essential HTN 02/08/2025 10:00 AM EDT Office Visit [facility] WALK-IN CENTER [address] [place] [address] Lucita Stevens MD Acute pain of left shoulder (Primary Dx); Left wrist pain; Benign essential HTN; Subconjunctival hemorrhage of left eye 02/08/2025 Results Follow-Up [facility] MEDICINE [address] [place] [address] Lucita Stevens MD XR Wrist 3+ Views Left 02/08/2025 Travel 01/18/2025 Travel 12/17/2024 Orders Only [facility] MEDICINE [address] [place] [address] Rain Gallardo MD Benign essential HTN (Primary [...] Description 04/05/2025 9:15 AM EDT Office Visit [facility] MEDICINE [address] [place], [place] [phone] Angel Valentin ANP 230 [place], [place] [phone] Health Maintenance Due Date Last Done Comments [...] AM EDT Narrative 02/08/2025 12:24 [place] [address] XRay Report Signed Patient: Cindy Powers MR#: [id number] : 1945 Acct:[id number] Age/Sex: 79 / F ADM Date: 02/08/25 Loc: .HHCX Attending Dr: Lucita Rios MD Ordering Physician: Lucita Stevens MD Date of Service: 02/08/25 Procedure(s): XR wrist LT min 3V Accession Number(s): [id number] cc: Lucita Stevens MD EXAMINATION: XR WRIST, [...] 02/08/25 1221 DD/ 1003 TD/TT: 02/08/25 1020 Radiator Core Tester: Procedure Note Donotuseinterpreter, Image - 02/15/2025 [place] [address] XRay Report Signed Patient: Cindy Powers#: [id number] : 7Acct:[id number] Age/Sex: 79 / FADM Date: 02/08/25 Loc: HO.HHCX Attending Dr: Lucita Rios MD Ordering Physician: Lucita Stevens MD Date of Service: 02/08/25 Procedure(s): XR wrist LT min 3V Accession Number(s): [id number] cc: Lucita Stevens MD EXAMINATION: XR WRIST, [...] 02/08/25 1221 DD/ 1003 TD/TT: 02/08/25 1020 Radiator Core Tester: Lucita Rios MD IMG XR PROCEDURES Fernando svitlana Result - Final * XR Shoulder 2+ Views Left (02/08/2025 10:01 AM EDT) Anatomical Region Laterality Modality Upper Extremities, Shoulder Left Radi ographic Imaging 02/08/2025 10:0 1 AM EDT Narrative 02/08/2025 12:20 PM EDT [address] [address] XRay Report Signed Patient: Cindy Powers MR#: [id number] : 1945 Acct:[id number] Age/Sex: 79 / F ADM Date: 02/08/25 Loc: HO.HHCX Attending Dr: Lucita Rios MD Ordering Physician: Lucita Stevens MD Date of Service: 02/08/25 Procedure(s): XR shoulder LT min 2V Accession Number(s): [id number] cc: Lucita Stevens MD EXAMINATION: XR SHOULDER, [...] OV> 02/08/258 DD/ 1001 TD/TT: 02/08/25 1020 Radiator Core Tester: Procedure Note Donotjeromeinterpreter, Image - 02/15/[address] [address] XRay Report Signed Patient: Cindy Powers#: [id number] : 7Acct:[id number] Age/Sex: 79 / FADM Date: 02/08/25 Loc: HO.HHCX Attending Dr: Lucita Rios MD Ordering Physician: Lucita Stevens MD Date of Service: 02/08/25 Procedure(s): XR shoulder LT min 2V Accession Number(s): [id number] cc: Lucita Stevens MD EXAMINATION: XR SHOULDER, [...] 02/08/25 1218 DD/ 1001 TD/TT: 02/08/25 1020 Radiator Core Tester: us Lucita Rios MD IMG XR PROCEDURES Fernando svitlana Result - Final * Hemoglobin A1c (11/18/2022 9:04 AM EDT) Hemoglobin A1c 5.5 <5.7 % of total Hgb [facility] [place] [facility] Comment: For the purpose of screening for the presence of diabetes: <5.7% Consistent with the absence of diabetes 5.7-6.4% Consistent with increased risk for diabetes (prediabetes) > or =6.5% Consistent with diabetes This assay result is consistent with a decreased risk of diabetes. Currently, no consensus exists regarding use of hemoglobin A1c for diagnosis of diabetes in children. According to [place] Diabetes Association (ADA) guidelines, hemoglobin A1c <7.0% represents optimal control in non- diabetic patients. Different metrics may apply to specific patient populations. Standards of Medical Care in Diabetes(ADA). Blood Venous blood specimen / Unknown 11/18/2022 9:04 AM EDT 11/18/2022 9:04 AM EDT Narrative [facility] - 11/18/2022 11:01 PM EDT FASTING:YES FASTING: YES [facility] LAB BLOOD ORDERABLES Final Resul t [facility] [address], [place] [address] [facility] 200 [place] [address] * (ABNORMAL) Lipid Panel, Standard (11/18/2022 9:04 AM EDT) Cholesterol, Total 203(H) <200 mg/dL [facility] HDL Cholesterol 73 > OR = 50 mg/dL [facility] Triglycerides 105 <150 mg/dL [facility] LDL Cholesterol 109(H) mg/dL (calc) [facility] Comment: Reference range: <100 Desirable range <100 mg/dL for primary prevention; <70 mg/dL for patients with CHD or diabetic patients with > or = 2 CHD risk factors. LDL-C is now calculated using the Antonia calculation, which is a validated novel method providing better accuracy than the Friedewald equation in the estimation of LDL-C. Brayan SUAREZ et al. GREG. 2013;310(19): 9864-4689 (http://education.Vast/faq/BXC121) Chol/HDLC Ratio 2.8 <5.0 (calc) [facility] Non-HDL Cholesterol 130(H) <130 mg/dL (calc) [facility] Comment: For patients with diabetes plus 1 major ASCVD risk factor, treating to a non-HDL-C goal of <100 mg/dL (LDL-C of <70 mg/dL) is considered a therapeutic option. Blood Venous blood specimen / Unknown 11/18/2022 9:04 AM EDT 11/18/2022 9:04 AM EDT Narrative [facility] - 11/18/2022 11:01 PM EDT FASTING:YES FASTING: YES Angel Valentin ANP LAB BLOOD ORDERABLES Final Resul t [facility] [address], [place] [address] [facility] 200 [place] [address] * BI Mammogram Screening Tomosynthesis Bilateral (10/07/2022 8:59 AM EDT) Anatomical Region Laterality Modality Breast Bilateral Mammography 10/07/2022 8:59 AM EDT Narrative 10/08/2022 12:48 PM EDT [facility] [address] [place] [address] Mammography Report Signed Patient: Cindy Powers MR#: [id number] : 1945 Acct:[id number] Age/Sex: 76 / F ADM Date: 10/07/22 Loc: MAMMO Attending Dr: Angel Valentin NP Ordering Physician: ANGEL VALENTIN NP Results: 1Negative Date of Service: 10/07/22 Follow Up: 1 Year From Orig inal Mammogram Procedure(s): MM tomosynthesis screening BI Accession Number(s): [id number] cc: ANGEL VALENTIN NP EXAMINATION: MM SCREENING [...] in OV> 10/08/22 1245 DD/ 0859 TD/TT: Radiator Core Tester: MENA Procedure Note Donotuseinterpreter, Image - 10/08/2022 [facility] [address] [place], [place] [address] Mammography Report Signed Patient: Juan Powers#: [id number] : 7Acct:[id number] Age/Sex: 76 / FADM Date: 10/07/22 Loc: HO.MAMMO Attending Dr: Angel Valentin NP Ordering Physician: ANGEL VALENTIN NPResults: 1Negative Date of Service: 10/07/22Follow Up: 1 Year From Orig inal Mammogram Procedure(s): MM tomosynthesis screening BI Accession Number(s): [id number] cc: ANGEL VALENTIN NP EXAMINATION: MM SCREENING [...] in OV> 10/08/22 1245 DD/ 0859 TD/TT: Radiator Core Tester: RAJESH [facility] External Provider IMG BI PROCEDURES Final Result * Hm Colonoscopy (03/13/2017 4:26 PM EDT) Historical Provider HEALTH MAINTENANCE Final Result from Last 3 Months or Most Recently Relevant to Health Maintenance Insurance [employer] MEDICARE REPLACEMENT Care Teams Personal Care Aide Relationship Specialty Start Date End Date Angel Valentin ANP [address] [place] [address] PCP - General Family Medicine 02/23/21
--- OUTSIDE RECORDS SUMMARY | 2025-03-01 11:36 | XMS_ITS | Encounter Summary ---
Author Organization [facility] Address 75 [facility] 7t [place] [address] Care Team Providers Care Pulper Operator Name Role Phone Mary Campo Primary Care Provider [phone] Encounter Details Date Type Department Care Team (Latest Contact Info) Description 09/21/[address] [facility] CONVERSIONS Dental, Provider, DDS Social History [...] Description 04/05/2025 9:15 AM EDT Office Visit [facility] MEDICINE [address] [place] [address] Mary Campo ANP [address] [place] [address] documented as of this encounter Visit Diagnoses Not on filedocumented in this encounter Care Teams Pulper Operator Relationship Specialty Start Date End Date Mary Campo ANP [address] [place] [address] PCP - General Family Medicine 02/23/21 documented as of this encounter
--- OUTSIDE RECORDS SUMMARY | 2025-03-01 11:36 | XMS_ITS | Encounter Summary ---
Author Organization [employer] Address 75 [facility] 7t [place] [address] Care Team Providers Care Wood Model Maker Name Role Phone Mary Campo Primary Care Provider [phone] Encounter Details Date Type Department Care Team ([facility] st Contact Info) Description 09/16/2023 Orders Only [facility] MEDICINE [address] [place] [address] Provider, MD Jessica Social History Tobacco Use [...] 9:15 AM EDT Office Visit [facility] MEDICINE [address] [place] [address] Mary Campo ANP [address] [place] [address] documented as of this encounter Procedures Procedure Name Priority Date/Time Associated Diagnosis Comments HM COLONOSCOPY Routine 03/13/2017 4:26 PM EDT documented in this encounter Results * Hm Colonoscopy (03/13/2017 4:26 PM EDT) Historical Provider HEALTH MAINTENANCE Final Result documented in this encounter Visit Diagnoses Not on filedocumented in this encounter Care Teams Wood Model Maker Relationship Specialty Start Date End Date Mary Campo ANP [address] [place] [address] PCP - General Family Medicine 02/23/21 documented as of this encounter
--- OUTSIDE RECORDS SUMMARY | 2025-03-01 11:36 | XMS_ITS | Encounter Summary ---
Author Organization [employer] Address 75 [facility] 7t [place] [address] Care Team Providers Care Muff Winder Name Role Phone CampoMary Primary Care Provider [phone] Reason for Referral * Consultation (Routine) - Pending Review Specialty Diagnoses / Procedures Referred By Jerri pillai Referred To Contact Pharmacy Diagnoses Benign essential HTN Rain Gallardo MD [address] [place] [address] Phone: tel: fax: Referral ID Status Reason Start Date Expiration Date Visits Requested Visits Authorized [id number] Pending Review Continuity of Care 12/20/2024 12/20/2025 6 6 Encounter Details Date Type Department Care Team (Late st Contact Info) Description 12/17/2024 Orders Only [facility] [address] [place] [address] Rain Gallardo MD [address] [place] [address] Benign essential HTN (Primary Dx) Social History [...] Description 04/05/2025 9:15 AM EDT Office Visit [facility] [address] [place] [address] Mary Campo ANP [address] [place] [address] Scheduled Referrals Name Type Priority Associated Diagnoses Orde r Schedule Referral to Pharmacy MTM Outpatient Referral Routine Benign essential HTN Ordered: 12/20/2024 documented as of this encounter Visit Diagnoses Diagnosis Benign essential HTN- Primary documented in this encounter Care Teams Muff Winder Relationship Specialty Start Date End Date Mary Campo ANP [address] [place] [address] PCP - General Family Medicine 02/23/21 documented as of this encounter
== END 2025-02-25 10:09 | disposition home or self-care (01) ==
LOC: HO.HOSX 10:08
DX: S52.502D Unspecified fracture of the lower end of left radius, subsequent encounter for closed fracture with routine healing (principal); M25.551 Pain in right hip; X58.XXXD Exposure to other specified factors, subsequent encounter
CPT/HCPCS: 29075; 73110; 99212

== ENCOUNTER 2025-02-25 11:25 | Outpatient (AMB) | payer MEDICARE, SELFPAY ==
--- NOTE | 2025-02-25 11:37 | MHC.OFFVIS ---
Vital Signs 02/25/25 11:48 Height 5 ft 2 in Weight 142 lb BMI 26.0 Intake Visit Reasons: OV- left wrist distal radius fx DOI 02/04/25 w/xray Intake Note: Cindy is a 79 year old right hand dominant female who presents today, with her sister Tere, status post left distal radius fracture, DOI: 02/04/25. At her last visit she was placed in a splint and advised to strictly remain at a 2 lb limit. Patient complains of pain on the dorsal aspect of the left wrist. She is taking Aleve with relief. Denies numbness, tingling, finger locking. Perianesthesia Rn Required: Yes Perianesthesia Rn Language: Heel Lining Paster Name: Suzy, MARU/CASS Allergies No Known Allergies Allergy (Verified 02/25/25 11:48) NOT APPLICABLE HPI HPI OV- left wrist distal radius fx DOI 02/04/25 w/xray: Details: Cindy is a 79 year old right hand dominant female who presents today, with her sister Tere, status post left distal radius fracture, DOI: 02/04/25. At her last visit she was placed in a splint and advised to strictly remain at a 2 lb limit. Patient complains of pain on the dorsal aspect of the left wrist. She is taking Aleve with relief. Denies numbness, tingling, finger locking. Of note, none that the patient has been removed from the splint, she has been actively flexing and extending of the left wrist. [facility] Medical History Seizure disorder Hypertension Asthma GERD (gastroesophageal reflux disease) High cholesterol Polyarthritis Osteoporosis Surgical History History of esophagogastroduodenoscopy (EGD) H/O abdominal surgery H/O colonoscopy Social History (System 02/15/25 @ 09:14 by Sarah Downing CNA) Patient Tobacco Use Status: Never used Tobacco Review of Systems Const All systems reviewed & are unremarkable except as noted in HPI and below Physical Exam Vital Signs: BMI result Body Mass Index 26.0 Extrem Other: Patient is alert, oriented, and in no acute distress. Neuro: Normal sensation of the tips of all digits of the left hand at this time Vascular: Cap refill brisk Pain: Significantly improved tenderness to palpation about the left distal radius No tenderness to palpation of the left anatomical snuffbox or scaphoid tubercle No tenderness to palpation of the left distal ulna ROM: Patient is able to make a closed fist and extend all digits of the left hand fully and without difficulty Skin: No lacerations or abrasions. General: Edema of the left wrist has resolved No erythema, ecchymosis, evidence of infection Psych: Appears grossly normal Affect normal Attitude cooperative Office Procedures AMB Fracture Care Fracture Billing Code: Fracture Billing Code Casting/Splints 97008-Vfjy/Wrist Cast Application Procedure code (CPT) selection complete Results Reviewed Results Reviewed: X-rays obtained in the office today and independently reviewed by me, Sai Garcia PA-C, demonstrate minimally displaced fracture of the left distal radius with approximately 2-3 degrees of apex volar angulation with no significant change from previous evaluation. Assessment & Plan Assessment & Plan (1) Fracture of left distal radius: Code(s): S52.502A - Unspecified fracture of the lower end of left radius, initial encounter for closed fracture Category: Medical Plan 1. Left distal radius fracture Date of injury 02/04/2025 Patient is educated about this condition The patient is educated about the typical treatment course for non or minimally displaced fractures, namely splinting, followed by casting, followed by gradual decreasing in immobilization Patient is educated that given the current alignment of her fracture, no operative intervention is indicated at this time Patient states understanding of this Patient is educated she should be limiting any weight-bearing in the left hand and wrist as much as possible Patient is placed into a short-arm cast Patient educated on proper cast care and precautions Follow-up in 2 weeks with repeat x-rays, anticipate cast removal at that time, sooner with any acute concerns Orders: Orders XR wrist LT min 3V Today M25.532 - Pain in left wrist Coding Level of Care Code Est Pt Level 3 (17762) Diagnoses Fracture of left distal radius S52.502A CPT Codes Fracture Care - Fracture Billing Code: Fracture Billing Code ([id number]) Casting - CPT: 52933-Xcrl/Wrist Cast Application ([id number])
[2025-02-25 11:48] VITALS: BMI 26.0
--- OUTSIDE RECORDS SUMMARY | 2025-02-25 12:27 | XMS_ITS | Encounter Summary ---
Author Organization [employer] Address 75 [facility] 7t [place] [address] Care Team Providers Care Scrap Charger Name Role Phone Mary Campo Primary Care Provider [phone] Encounter Details Date Type Department Care Team ([facility] st Contact Info) Description 09/16/2023 Orders Only [facility] MEDICINE [address] [place] [address] Provider, MD Jessica Social History Tobacco Use Types Packs/Day Years Used Date Smoking Tobacco: Never Smokeless Tobacco: Never Alcohol Use Standard Drinks/Week Comments Never 0 (1 standard drink = 0.6 oz pur e alcohol) Housing Stability Answer Date Recorded What is your housing situation today? I have jayesh gay 04/16/[address] you li [...] as of this encounter Plan of Treatment Upcoming Encounters Date Type Department Care Team (Late st Contact Info) Description 04/05/2025 9:15 AM EDT Office Visit [facility] MEDICINE [address] [place] [address] Mary Campo ANP 230 [place] [address] documented as of this encounter Procedures Procedure Name Priority Date/Time Associated Diagnosis Comments HM COLONOSCOPY Routine 03/13/2017 4:26 PM EDT documented in this encounter Results * Hm Colonoscopy (03/13/2017 4:26 PM EDT) Historical Provider HEALTH MAINTENANCE Final Result documented in this encounter Visit Diagnoses Not on filedocumented in this encounter Care Teams Scrap Charger Relationship Specialty Start Date End Date Mary Campo ANP [address] [place] [address] PCP - General Family Medicine 02/23/21 documented as of this encounter
--- OUTSIDE RECORDS SUMMARY | 2025-02-25 12:27 | XMS_ITS | Encounter Summary ---
Author Organization [employer] [facility] Address 75 [facility] 7t [place] [address] Care Team Providers Care Hr Recruiter Name Role Phone Mary Campo Primary Care Provider [phone] Encounter Details Date Type Department Care Team (Latest Contact Info) Description 09/21/2021 Abstract [facility] CONVERSIONS Dental, Provider, DDS Social [...] Description 04/05/2025 9:15 AM EDT Office Visit [facility] MEDICINE 230 [place] [address] Mary Campo ANP 230 [place] [address] documented as of this encounter Visit Diagnoses Not on filedocumented in this encounter Care Teams Hr Recruiter Relationship Specialty Start Date End Date Mary Campo ANP 230 [place] [address] PCP - General Family Medicine 02/23/21 documented as of this encounter
--- OUTSIDE RECORDS SUMMARY | 2025-02-25 12:27 | XMS_ITS | Clinical Summary ---
Author Organization [employer] Address 75 [facility] 7t [place] [address] Care Team Providers Care Porcelain Turner Name Role Phone Angel Valentin Primary Care Provider [phone] Allergies Active Allergy Reactions Criticality Noted Date [...] Type Department Care Team Description 02/17/2025 Telephone [facility] MEDICINE [address] [place] [address] Angel Valentin ANP Call Back Request 02/16/2025 Refill [facility] MEDICINE [address] [place] [address] Angel Valentin ANP Benign essential HTN 02/08/2025 10:00 AM EDT Office Visit [facility] WALK-IN CENTER 230 [place] [address] Lucita Stevens MD Acute pain of left shoulder (Primary Dx); Left wrist pain; Benign essential HTN; Subconjunctival hemorrhage of left eye 02/08/2025 Results Follow-Up [facility] MEDICINE [address] [place] [address] Lucita Stevens MD XR Wrist 3+ Views Left 02/08/2025 Travel 01/18/2025 Travel 12/17/2024 Orders Only [facility] MEDICINE [address] [place] [address] Rain Gallardo MD Benign essential HTN (Primary [...] Description 04/05/2025 9:15 AM EDT Office Visit [facility] MEDICINE [address] [place], [place] [phone] Angel Valentin ANP 230 [place], [place] [phone] Health Maintenance Due Date Last Done Comments [...] AM EDT Narrative 02/08/2025 12:24 [place] [address] XRay Report Signed Patient: Cindy Powers MR#: [id number] : 1945 Acct:[id number] Age/Sex: 79 / F ADM Date: 02/08/25 Loc: .HHCX Attending Dr: Lucita Rios MD Ordering Physician: Lucita Stevens MD Date of Service: 02/08/25 Procedure(s): XR wrist LT min 3V Accession Number(s): [id number] cc: Lucita Stevens MD EXAMINATION: XR WRIST, [...] 02/08/25 1221 DD/ 1003 TD/TT: 02/08/25 1020 Ear Muff Assembler: Procedure Note Donotuseinterpreter, Image - 02/15/2025 [place] [address] XRay Report Signed Patient: Cindy Powers#: [id number] : 7Acct:[id number] Age/Sex: 79 / FADM Date: 02/08/25 Loc: HO.HHCX Attending Dr: Lucita Rios MD Ordering Physician: Lucita Stevens MD Date of Service: 02/08/25 Procedure(s): XR wrist LT min 3V Accession Number(s): [id number] cc: Lucita Stevens MD EXAMINATION: XR WRIST, [...] 02/08/25 1221 DD/ 1003 TD/TT: 02/08/25 1020 Ear Muff Assembler: Lucita Rios MD IMG XR PROCEDURES Fernando svitlana Result - Final * XR Shoulder 2+ Views Left (02/08/2025 10:01 AM EDT) Anatomical Region Laterality Modality Upper Extremities, Shoulder Left Radi ographic Imaging 02/08/2025 10:0 1 AM EDT Narrative 02/08/2025 12:20 PM EDT [address] [address] XRay Report Signed Patient: Cindy Powers MR#: [id number] : 1945 Acct:[id number] Age/Sex: 79 / F ADM Date: 02/08/25 Loc: HO.HHCX Attending Dr: Lucita Rios MD Ordering Physician: Lucita Stevens MD Date of Service: 02/08/25 Procedure(s): XR shoulder LT min 2V Accession Number(s): [id number] cc: Lucita Stevens MD EXAMINATION: XR SHOULDER, [...] OV> 02/08/258 DD/ 1001 TD/TT: 02/08/25 1020 Ear Muff Assembler: Procedure Note Donotjeromeinterpreter, Image - 02/15/[address] [address] XRay Report Signed Patient: Cindy Powers#: [id number] : 7Acct:[id number] Age/Sex: 79 / FADM Date: 02/08/25 Loc: HO.HHCX Attending Dr: Lucita Rios MD Ordering Physician: Lucita Stevens MD Date of Service: 02/08/25 Procedure(s): XR shoulder LT min 2V Accession Number(s): [id number] cc: Lucita Stevens MD EXAMINATION: XR SHOULDER, [...] 02/08/25 1218 DD/ 1001 TD/TT: 02/08/25 1020 Ear Muff Assembler: us Lucita Rios MD IMG XR PROCEDURES Fernando svitlana Result - Final * Hemoglobin A1c (11/18/2022 9:04 AM EDT) Hemoglobin A1c 5.5 <5.7 % of total Hgb [facility] Comment: For the purpose of screening for the presence of diabetes: <5.7% Consistent with the absence of diabetes 5.7-6.4% Consistent with increased risk for diabetes (prediabetes) > or =6.5% Consistent with diabetes This assay result is consistent with a decreased risk of diabetes. Currently, no consensus exists regarding use of hemoglobin A1c for diagnosis of diabetes in children. According to [place] Diabetes Association (ADA) guidelines, hemoglobin A1c <7.0% represents optimal control in non- diabetic patients. Different metrics may apply to specific patient populations. Standards of Medical Care in Diabetes(ADA). Blood Venous blood specimen / Unknown 11/18/2022 9:04 AM EDT 11/18/2022 9:04 AM EDT Narrative [facility] - 11/18/2022 11:01 PM EDT FASTING:YES FASTING: YES [facility] LAB BLOOD ORDERABLES Final Resul t [facility] [address], [place] [address] [facility] [address] [place] [address] * (ABNORMAL) Lipid Panel, Standard (11/18/2022 9:04 AM EDT) Cholesterol, Total 203(H) <200 mg/dL [facility] HDL Cholesterol 73 > OR = 50 mg/dL [facility] Triglycerides 105 <150 mg/dL [facility] LDL Cholesterol 109(H) mg/dL (calc) [facility] Comment: Reference range: <100 Desirable range <100 mg/dL for primary prevention; <70 mg/dL for patients with CHD or diabetic patients with > or = 2 CHD risk factors. LDL-C is now calculated using the Antonia calculation, which is a validated novel method providing better accuracy than the Friedewald equation in the estimation of LDL-C. Brayan SUAREZ et al. GREG. 2013;310(19): 1901-5496 (http://education.Soci Ads/faq/VMA890) Chol/HDLC Ratio 2.8 <5.0 (calc) [facility] Non-HDL Cholesterol 130(H) <130 mg/dL (calc) [facility] Comment: For patients with diabetes plus 1 major ASCVD risk factor, treating to a non-HDL-C goal of <100 mg/dL (LDL-C of <70 mg/dL) is considered a therapeutic option. Blood Venous blood specimen / Unknown 11/18/2022 9:04 AM EDT 11/18/2022 9:04 AM EDT Narrative [facility] - 11/18/2022 11:01 PM EDT FASTING:YES FASTING: YES Angel Valentin ANP LAB BLOOD ORDERABLES Final Resul t [facility] [address], [place] [address] [facility] [address] [place] [address] * BI Mammogram Screening Tomosynthesis Bilateral (10/07/2022 8:59 AM EDT) Anatomical Region Laterality Modality Breast Bilateral Mammography 10/07/2022 8:59 AM EDT Narrative 10/08/2022 12:48 PM EDT [facility] [address] [place] [address] Mammography Report Signed Patient: Cindy Powers MR#: [id number] : 1945 Acct:[id number] Age/Sex: 76 / F ADM Date: 10/07/22 Loc: MAMMO Attending Dr: Angel Valentin NP Ordering Physician: ANGEL VALENTIN NP Results: 1Negative Date of Service: 10/07/22 Follow Up: 1 Year From Orig inal Mammogram Procedure(s): MM tomosynthesis screening BI Accession Number(s): [id number] cc: ANGEL VALENTIN NP EXAMINATION: MM SCREENING [...] in OV> 10/08/22 1245 DD/ 0859 TD/TT: Ear Muff Assembler: MENA Procedure Note Donotuseinterpreter, Image - 10/08/2022 [facility] [address] [place], [place] [address] Mammography Report Signed Patient: Juan Powers#: [id number] : 7Acct:[id number] Age/Sex: 76 / FADM Date: 10/07/22 Loc: HO.MAMMO Attending Dr: Angel Valentin NP Ordering Physician: ANGEL VALENTIN NPResults: 1Negative Date of Service: 10/07/22Follow Up: 1 Year From Orig inal Mammogram Procedure(s): MM tomosynthesis screening BI Accession Number(s): [id number] cc: ANGEL VALENTIN NP EXAMINATION: MM SCREENING [...] in OV> 10/08/22 1245 DD/ 0859 TD/TT: Ear Muff Assembler: RAJESH [facility] External Provider IMG BI PROCEDURES Final Result * Hm Colonoscopy (03/13/2017 4:26 PM EDT) Historical Provider HEALTH MAINTENANCE Final Result from Last 3 Months or Most Recently Relevant to Health Maintenance Insurance [employer] MEDICARE REPLACEMENT Care Teams Porcelain Turner Relationship Specialty Start Date End Date Angel Valentin ANP [address] [place] [address] PCP - General Family Medicine 02/23/21
--- OUTSIDE RECORDS SUMMARY | 2025-02-25 12:27 | XMS_ITS | Encounter Summary ---
Author Organization [employer] Address 75 [facility] 7t [place] [address] Care Team Providers Care Freelance Designer Name Role Phone CampoMary Primary Care Provider [phone] Reason for Referral * Consultation (Routine) - Pending Review Specialty Diagnoses / Procedures Referred By Jerri pillai Referred To Contact Pharmacy Diagnoses Benign essential HTN Rain Gallardo MD [address] [place] [address] Phone: tel: fax: Referral ID Status Reason Start Date Expiration Date Visits Requested Visits Authorized [id number] Pending Review Continuity of Care 12/20/2024 12/20/2025 6 6 Encounter Details Date Type Department Care Team (Late st Contact Info) Description 12/17/2024 Orders Only [facility] MEDICINE [address] [place] [address] Rain Gallardo MD [address] [place] [address] Benign essential HTN (Primary Dx) Social History Tobacco Use Types Packs/Day Years [...] Description 04/05/2025 9:15 AM EDT Office Visit [facility] MEDICINE [address] [place] [address] Mary Campo ANP [address] [place] [address] Scheduled Referrals Name Type Priority Associated Diagnoses Orde r Schedule Referral to Pharmacy MTM Outpatient Referral Routine Benign essential HTN Ordered: 12/20/2024 documented as of this encounter Visit Diagnoses Diagnosis Benign essential HTN- Primary documented in this encounter Care Teams Freelance Designer Relationship Specialty Start Date End Date Mary Campo ANP [address] [place] [address] PCP - General Family Medicine 02/23/21 documented as of this encounter
== END 2025-02-25 12:36 | disposition home or self-care (01) ==
LOC: HO.HOS 11:25
PROVIDERS: PCP Nurse Practitioner Primary Care
DX: S52.502A Unspecified fracture of the lower end of left radius, initial encounter for closed fracture (principal)
CPT/HCPCS: 29075; 99024

== ENCOUNTER → 2025-02-25 11:28 | Outpatient (BNV) | payer MEDICARE, SELFPAY | PROVIDERS: Visit Provider Radiology Diagnostic Radiology | DX: S52.572A Other intraarticular fracture of lower end of left radius, initial encounter for closed fracture (principal) | CPT/HCPCS: 73110 ==

== ENCOUNTER 2025-03-09 09:06 | Outpatient (REF) | payer MEDICARE, SELFPAY ==
--- NOTE | ~2025-03-09 | XR_ITS ---
EXAMINATION: XR WRIST, LEFT CLINICAL INFORMATION: M25.532 - Pain in left wrist , follow-up fracture COMPARISON: February 25, 2025 TECHNIQUE: PA, lateral, and oblique views of the left wrist. FINDINGS: Again seen is a mildly impacted intra-articular fracture of the distal radius with no change in height and alignment. Fracture line remains visible but there is increasing density in the region of the fracture. 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 The first CMC joint demonstrates sclerosis, degenerative cystic change, marginal osteophytes, asymmetric narrowing. XR/XR wrist LT w scaphoid IMPRESSION: Osteopenia. Healing distal radial fracture. Moderate first CMC joint osteoarthritis. Electronically signed by: Sarthak Grant MD 03/09/2025 10:35 AM EDT
--- OUTSIDE RECORDS SUMMARY | 2025-03-09 10:46 | XMS_ITS | Encounter Summary ---
Author Organization [employer] Address 75 [facility] 7t [place] [address] Care Team Providers Care Electroneurodiagnostic Technologist Name Role Phone Mary Campo Primary Care Provider [phone] Encounter Details Date Type Department Care Team ([facility] st Contact Info) Description 09/16/2023 Orders Only [facility] [address] [place] [address] Provider, MD Jessica Social History Tobacco Use [...] Care Team (Late st Contact Info) Description 05/12/2025 10:30 AM EST Office Visit [facility] [address] [place] [address] Mary Campo ANP [address] [place] [address] documented as of this encounter Procedures Procedure Name Priority Date/Time Associated Diagnosis Comments HM COLONOSCOPY Routine 03/13/2017 4:26 PM EDT documented in this encounter Results * Hm Colonoscopy (03/13/2017 4:26 PM EDT) Historical Provider HEALTH MAINTENANCE Final Result documented in this encounter Visit Diagnoses Not on filedocumented in this encounter Care Teams Electroneurodiagnostic Technologist Relationship Specialty Start Date End Date Mary Campo ANP [address] [place] [address] PCP - General Family Medicine 02/23/21 documented as of this encounter
--- OUTSIDE RECORDS SUMMARY | 2025-03-09 10:46 | XMS_ITS | Encounter Summary ---
Author Organization [employer] Address 75 [facility] 7t [place] [address] Care Team Providers Care Doughnut Icer Machine Name Role Phone CampoMary Primary Care Provider [phone] Reason for Referral * Consultation (Routine) - Pending Review Specialty Diagnoses / Procedures Referred By Jerri pillai Referred To Contact Pharmacy Diagnoses Benign essential HTN Rain Gallardo MD [address] [place] [address] Phone: tel: fax: Referral ID Status Reason Start Date Expiration Date Visits Requested Visits Authorized [id number] Pending Review Continuity of Care 12/20/2024 12/20/2025 6 6 Encounter Details Date Type Department Care Team (Late st Contact Info) Description 12/17/2024 Orders Only [facility] [address] [place] [address] Rain Gallardo MD [address] [place] [address] Benign essential HTN (Primary Dx) Social History [...] Description 05/12/2025 10:30 AM EST Office Visit [facility] [address] [place] [address] Mary Campo ANP [address] [place] [address] Scheduled Referrals Name Type Priority Associated Diagnoses Orde r Schedule Referral to Pharmacy MTM Outpatient Referral Routine Benign essential HTN Ordered: 12/20/2024 documented as of this encounter Visit Diagnoses Diagnosis Benign essential HTN- Primary documented in this encounter Care Teams Doughnut Icer Machine Relationship Specialty Start Date End Date Mary Campo ANP [address] [place] [phone] PCP - General Family Medicine 02/23/21 documented as of this encounter
--- OUTSIDE RECORDS SUMMARY | 2025-03-09 10:46 | XMS_ITS | Clinical Summary ---
Author Organization [employer] Address [address] [facility] 7t [place] [address] Care Team Providers Care Formulator Compounder Name Role Phone Angel Valentin Primary Care Provider [phone] Allergies Active Allergy Reactions Criticality Noted Date [...] Encounters Date Type Department Care Team Description 03/02/2025 Telephone [facility] [address] [place] [address] Angel Valentin ANP Appointment Request 02/17/2025 Telephone [facility] [address] [place] [address] Angel Valentin ANP Call Back Request 02/16/2025 Refill [facility] [address] [place] [address] Angel Valentin ANP Benign essential HTN 02/08/2025 10:00 AM EDT Office Visit [facility] [address] [place] [address] [place] [address] Lucita Stevens MD Acute pain of left shoulder (Primary Dx); Left wrist pain; Benign essential HTN; Subconjunctival hemorrhage of left eye 02/08/2025 Results Follow-Up [facility] [address] [place] [address] Lucita Stevens MD XR Wrist 3+ Views Left 02/08/2025 Travel 01/18/2025 Travel 12/17/2024 Orders Only [facility] [address] [place] [address] Rain Gallardo MD Benign essential HTN (Primary [...] is your housing situation today? I have jayeshjunior rashid 04/16/[address] you [...] the past 12 months, has t he [employer] gas, oil or water company threatened to [...] Description 05/12/2025 10:30 AM EST Office Visit [facility] [address] [place] [address] Angel Valentin ANP [address] [place] [address] Health Maintenance Due Date Last Done Comments Alcohol/Substance Use Screening 1957 Hepatitis C Screening 1964 RSV Patients and Patients Aged 60 years or older (1 - 1-dose 75+ series) 2021 Mammogram 10/08/2023 10/07/2022, 08/29, 09/25/2021, Additional history exists Depression Screening 11/06/2023 11/05/2022, 11/06/19 23 SDOH Screening 11/06/2023 11/05/2022 Diabetes: Hemoglobin A1C 11/19/2023 023, 05/29/2021, 01/12/2020 COVID-19 Vaccine ( season) 2025 05/28/2022, 11/13/2021, 05/14/2021, Additional history exists Influenza [...] AM EDT Narrative 02/08/2025 12:24 PM EDT [address] [address] XRay Report Signed Patient: Cindy Powers MR#: [id number] : 1945 Acct:[id number] Age/Sex: 79 / F ADM Date: 02/08/25 Loc: HO.HHCX Attending Dr: Lucita Rios MD Ordering Physician: Lucita Stevens MD Date of Service: 02/08/25 Procedure(s): XR wrist LT min 3V Accession Number(s): [id number] cc: Lucita Stevens MD EXAMINATION: XR WRIST, [...] 02/08/25 1221 DD/ 1003 TD/TT: 02/08/25 1020 Hand Cementer: Procedure Note Donotuseinterpreter, Image - 02/15/[address] [address] XRay Report Signed Patient: Cindy Powers#: [id number] : 7Acct:[id number] Age/Sex: 79 / FADM Date: 02/08/25 Loc: HO.HHCX Attending Dr: Lucita Rios MD Ordering Physician: Lucita Stevens MD Date of Service: 02/08/25 Procedure(s): XR wrist LT min 3V Accession Number(s): [id number] cc: Lucita Stevens MD EXAMINATION: XR WRIST, [...] Kehinde Dee MD 02/08/2025 12:21 PM EDT Dictated By: Kehinde Cash MD Signed By: <Electronically signed by Kehinde Vital MDin OV> 02/08/25 1221 DD/ 1003 TD/TT: 02/08/25 1020 Hand Cementer: us Lucita Rios MD IMG XR PROCEDURES Fernando svitlana Result - Final * XR Shoulder 2+ Views Left (02/08/2025 10:01 AM EDT) Anatomical Region Laterality Modality Upper Extremities, Shoulder Left Radi ographic Imaging 02/08/2025 10:0 1 AM EDT Narrative 02/08/2025 12:20 [place] [address] XRay Report Signed Patient: Cindy Powers MR#: [id number] : 1945 Acct:[id number] Age/Sex: 79 / F ADM Date: 02/08/25 Loc: HO.HHCX Attending Dr: Lucita Rios MD Ordering Physician: Lucita Stevens MD Date of Service: 02/08/25 Procedure(s): XR shoulder LT min 2V Accession Number(s): [id number] cc: Lucita Stevens MD EXAMINATION: XR SHOULDER, [...] by Kehinde Vital MD in OV> 02/08/25 1218 DD/ 1001 TD/TT: 02/08/25 1020 Hand Cementer: Procedure Note Donotuseinterpreter, Image - 02/15/[address] [address] XRay Report Signed Patient: Cindy Powers#: [id number] : 7Acct:[id number] Age/Sex: 79 / FADM Date: 02/08/25 Loc: .HHCX Attending Dr: Lucita Rios MD Ordering Physician: Lucita Stevens MD Date of Service: 02/08/25 Procedure(s): XR shoulder LT min 2V Accession Number(s): [id number] cc: Lucita Stevens MD EXAMINATION: XR SHOULDER, [...] 12:18 PM EDT RP Dictated By: Kehinde Csah MD Signed By: <Electronically signed by Kehinde Vital MDin OV> 02/08/25 1218 DD/ 1001 TD/TT: 02/08/25 1020 Hand Cementer: Lucita Rios MD IMG XR PROCEDURES Fernando svitlana Result - Final * Hemoglobin A1c (11/18/2022 9:04 AM EDT) Hemoglobin A1c 5.5 <5.7 % of total Hgb [employer] [place] [employer] Comment: For the purpose of screening for the presence of diabetes: <5.7% Consistent with the absence of diabetes 5.7-6.4% Consistent with increased risk for diabetes (prediabetes) > or =6.5% Consistent with diabetes This assay result is consistent with a decreased risk of diabetes. Currently, no consensus exists regarding use of hemoglobin A1c for diagnosis of diabetes in children. According to [place] Diabetes Association (ADA) guidelines, hemoglobin A1c <7.0% represents optimal control in non- diabetic patients. Different metrics may apply to specific patient populations. Standards of Medical Care in Diabetes(ADA). Blood Venous blood specimen / Unknown 11/18/2022 9:04 AM EDT 11/18/2022 9:04 AM EDT Narrative [facility] - 11/18/2022 11:01 PM EDT FASTING:YES FASTING: YES Angel ARORA LAB BLOOD ORDERABLES Final Resul t [facility] [address], [place] [address] [employer] [place] [employer] [address] [place] [address] * (ABNORMAL) Lipid Panel, Standard (11/18/2022 9:04 AM EDT) Cholesterol, Total 203(H) <200 mg/dL [employer] [place] [employer] HDL Cholesterol 73 > OR = 50 mg/dL [employer] [place] [employer] Triglycerides 105 <150 mg/dL [employer] [place] [employer] LDL Cholesterol 109(H) mg/dL (calc) [employer] [place] [employer] Comment: Reference range: <100 Desirable range <100 mg/dL for primary prevention; <70 mg/dL for patients with CHD or diabetic patients with > or = 2 CHD risk factors. LDL-C is now calculated using the Brayan-Solorzano calculation, which is a validated novel method providing better accuracy than the Friedewald equation in the estimation of LDL-C. Brayan SS et al. GREG. 2013;310(96): 7131-2079 (http://education.[employer]/faq/XLX543) Chol/HDLC Ratio 2.8 <5.0 (calc) [employer] [place] [employer] Non-HDL Cholesterol 130(H) <130 mg/dL (calc) [employer] [place] [employer] Comment: For patients with diabetes plus 1 major ASCVD risk factor, treating to a non-HDL-C goal of <100 mg/dL (LDL-C of <70 mg/dL) is considered a therapeutic option. Blood Venous blood specimen / Unknown 11/18/2022 9:04 AM EDT 11/18/2022 9:04 AM EDT Narrative [facility] - 11/18/2022 11:01 PM EDT FASTING:YES FASTING: YES Angel Valentin [facility] LAB BLOOD ORDERABLES Final Resul t [facility] [address], [place] [address] [employer] [place] [employer] [address] [place] [address] * BI Mammogram Screening Tomosynthesis Bilateral (10/07/2022 8:59 AM EDT) Anatomical Region Laterality Modality Breast Bilateral Mammography 10/07/2022 8:59 AM EDT Narrative 10/08/2022 12:48 PM EDT [facility] [address] [place] [address] [place] [address] Mammography Report Signed Patient: Cindy Powers MR#: [id number] : 1945 Acct:[id number] Age/Sex: 76 / F ADM Date: 10/07/22 Loc: HO.MAMMO Attending Dr: Angel Valentin NP Ordering Physician: ANGEL VALENTIN NP Results: 1Negative Date of Service: 10/07/22 Follow Up: 1 Year From Orig inal Mammogram Procedure(s): MM tomosynthesis screening BI Accession Number(s): [id number] cc: ANGEL VALENTIN NP EXAMINATION: MM SCREENING [...] in OV> 10/08/22 1245 DD/ 0859 TD/TT: Hand Cementer: MENA Procedure Note Donotuseinterpreter, Image - 10/08/2022 [facility] [address] [place] [address] Mammography Report Signed Patient: Juan Powers#: [id number] : 7Acct:[id number] Age/Sex: 76 / FADM Date: 10/07/22 Loc: ABISAIO Attending Dr: Angel Valentin NP Ordering Physician: ANGEL VALENTIN NPResults: 1Negative Date of Service: 10/07/22Follow Up: 1 Year From Orig inal Mammogram Procedure(s): MM tomosynthesis screening BI Accession Number(s): [id number] cc: ANGEL VALENTIN NP EXAMINATION: MM SCREENING [...] in OV> 10/08/22 1245 DD/ 0859 TD/TT: Hand Cementer: RAJESH [facility] External Provider IMG BI PROCEDURES Final Result * Hm Colonoscopy (03/13/2017 4:26 PM EDT) Historical Provider HEALTH MAINTENANCE Final Result from Last 3 Months or Most Recently Relevant to Health Maintenance Insurance [address] [place] [phone] [employer] MED[employer]ARE REPLACEMENT Care Teams Formulator Compounder Relationship Specialty Start Date End Date Angel Valentin ANP [address] [place] [address] PCP - General Family Medicine 02/23/21
--- OUTSIDE RECORDS SUMMARY | 2025-03-09 10:46 | XMS_ITS | Encounter Summary ---
Author Organization [employer] [facility] Address [address] [facility] 7t [place] [address] Care Team Providers Care Senior Quality Analyst Name Role Phone Mary Campo Primary Care Provider [phone] Encounter Details Date Type Department Care Team (Latest Contact Info) Description 09/21/2021 Abstract [facility] CONVERSIONS Dental, Provider, DDS Social History [...] Description 05/12/2025 10:30 AM EST Office Visit [facility] [address] [place] [address] Mary Campo ANP [address] [place] [address] documented as of this encounter Visit Diagnoses Not on filedocumented in this encounter Care Teams Senior Quality Analyst Relationship Specialty Start Date End Date Mary Campo ANP [address] [place] [address] PCP - General Family Medicine 02/23/21 documented as of this encounter
== END 2025-03-09 09:07 | disposition home or self-care (01) ==
LOC: HO.HOSX 09:06
DX: S52.502D Unspecified fracture of the lower end of left radius, subsequent encounter for closed fracture with routine healing (principal); X58.XXXD Exposure to other specified factors, subsequent encounter
CPT/HCPCS: 29075; 73110; 99212

== ENCOUNTER 2025-03-09 09:36 | Outpatient (AMB) | payer MEDICARE, SELFPAY ==
--- NOTE | 2025-03-09 09:45 | A.OFFVIS_ITS ---
Vital Signs 03/09/25 09:46 Height 5 ft 2 in Weight 142 lb BMI 26.0 Intake Visit Reasons: OV- left wrist distal radius fx DOI 02/04/25 w/xray Intake Note: Cindy is a 79 year old right hand dominant female who presents today for follow up status post Left Distal Radius Fracture, DOI: 02/04/25. At her last visit she was placed in a short-arm cast and advised to remain non-weight bearing. Patient complains of pain at the elbow and the right shoulder, coming from her left wrist. Denies new injuries. Cast removed for x-rays. Director Of Vendor Management Required: Yes Director Of Vendor Management Language: Audiovisual Production Specialist Name: Suzy, RMA/LM Allergies No Known Allergies Allergy (Verified 03/09/25 10:00) NOT APPLICABLE HPI HPI OV- left wrist distal radius fx DOI 02/04/25 w/xray: Details: Cindy is a 79 year old right hand dominant female who presents today for follow up status post Left Distal Radius Fracture, DOI: 02/04/25. At her last visit she was placed in a short-arm cast and advised to remain non-weight be aring. Patient complains of pain at the elbow and the right shoulder, coming from her left wrist. Denies new injuries. Cast removed for x-rays. Of note, the patient does report that she was sticking things down the cast to scratch her skin, as it got very itchy. [facility] Medical History Seizure disorder Hypertension Asthma GERD (gastroesophageal reflux disease) High cholesterol Polyarthritis Osteoporosis Surgical History History of esophagogastroduodenoscopy (EGD) H/O abdominal surgery H/O colonoscopy Social History (System 02/15/25 @ 09:14 by Sarah Downing CNA) Patient Tobacco Use Status: Never used Tobacco Review of Systems Const All systems reviewed & are unremarkable except as noted in HPI and below Physical Exam Vital Signs: BMI result Body Mass Index 26.0 Extrem Other: Patient is alert, oriented, and in no acute distress. Neuro: Normal sensation of the tips of all digits of the left hand at this time Vascular: Cap refill brisk Pain: Very minimal tenderness to palpation about the left distal radius Patient reports some tenderness to palpation of the ulnar styloid No tenderness to palpation of the left anatomical snuffbox or scaphoid tubercle No tenderness to palpation of the left distal ulna ROM: Patient is able to make a closed fist and extend all digits of the left hand fully and without difficulty Skin: No lacerations or abrasions. General: Edema of the left wrist has resolved No erythema, ecchymosis, evidence of infection Psych: Appears grossly normal Affect normal Attitude cooperative Office Procedures Casting/Splints 23706-Zujd/Wrist Cast Application Procedure code (CPT) selection complete Results Reviewed Results Reviewed: X-rays obtained in the office today and independently reviewed by me, Sai Garcia PA-C, demonstrate minimally displaced fracture of the left distal radius with approximately 2-3 degrees of apex volar angulation with no significant change from previous evaluation. Assessment & Plan Assessment & Plan (1) Fracture of left distal radius: Code(s): S52.502A - Unspecified fracture of the lower end of left radius, initial encounter for closed fracture Category: Medical Plan 1. Left distal radius fracture Date of injury 02/04/2025 Patient is educated about this condition The patient is educated about the typical treatment course for non or minimally displaced fractures, namely splinting, followed by casting, followed by gradual decreasing in immobilization Patient is educated that given the current alignment of her fracture, no operative intervention is indicated at this time Patient states understanding of this Patient is educated she should be limiting any weight-bearing in the left hand and wrist as much as possible However, I do feel that more casting is necessary, as the patient's x-ray does show very minimal evidence of interval bony healing at this time. Patient is placed into a short-arm cast Patient educated on proper cast care and precautions Follow-up in 1-2 weeks with repeat x-rays, anticipate cast removal at that time, sooner with any acute concerns Orders: Orders XR wrist LT w scaphoid Today M25.532 - Pain in left wrist Coding Level of Care Code Global (51922) Diagnoses Fracture of left distal radius S52.502A CPT Codes Casting - CPT: 65775-Sowd/Wrist Cast Application ([id number])
[2025-03-09 09:46] VITALS: BMI 26.0
== END 2025-03-09 11:05 | disposition home or self-care (01) ==
LOC: HO.HOS 09:40
DX: S52.502A Unspecified fracture of the lower end of left radius, initial encounter for closed fracture (principal)
CPT/HCPCS: 29075; 99024

== ENCOUNTER → 2025-03-09 09:46 | Outpatient (BNV) | payer MEDICARE, SELFPAY | PROVIDERS: Visit Provider Radiology Diagnostic Radiology | DX: M25.532 Pain in left wrist (principal); S52.502D Unspecified fracture of the lower end of left radius, subsequent encounter for closed fracture with routine healing; M85.822 Other specified disorders of bone density and structure, left upper arm; M18.12 Unilateral primary osteoarthritis of first carpometacarpal joint, left hand | CPT/HCPCS: 73110 ==

== ENCOUNTER 2025-03-22 10:24 | Outpatient (AMB) | payer MEDICARE, SELFPAY ==
--- NOTE | 2025-03-22 10:46 | A.OFFVIS_ITS ---
Vital Signs 03/22/25 10:47 Height 5 ft 2 in Weight 142 lb BMI 26.0 Intake Visit Reasons: OV- left wrist distal radius fx DOI 02/04/25 w/xray Intake Note: Cindy is a 79 year old right hand dominant female who presents today for follow up status post Left Distal Radius Fracture, DOI: 02/04/25. She was placed on a new short arm cast on 03/09/25. Patient reports she is doing well. She denies any pain today. Languages And Literature Instructor Required: Yes Languages And Literature Instructor Language: Chief Supply Chain Officer Services: Languages And Literature Instructor Present Languages And Literature Instructor Name: MARU Almonte/LM Allergies No Known Allergies Allergy (Verified 03/22/25 10:47) NOT APPLICABLE HPI HPI OV- left wrist distal radius fx DOI 02/04/25 w/xray: Details: Cindy is a 79 year old right hand dominant female who presents today for follow up status post Left Distal Radius Fracture, DOI: 02/04/25. She was placed on a new short arm cast on 03/09/25. Patient reports she is doing well. She denies any pain today. [facility] Medical History Seizure disorder Hypertension Asthma GERD (gastroesophageal reflux disease) High cholesterol Polyarthritis Osteoporosis Surgical History History of esophagogastroduodenoscopy (EGD) H/O abdominal surgery H/O colonoscopy Social History (System 02/15/25 @ 09:14 by Sarah Downing CNA) Patient Tobacco Use Status: Never used Tobacco Review of Systems Const All systems reviewed & are unremarkable except as noted in HPI and below Physical Exam Vital Signs: BMI result Body Mass Index 26.0 Extrem Other: Patient is alert, oriented, and in no acute distress. Neuro: Normal sensation of the tips of all digits of the left hand at this time Vascular: Cap refill brisk Pain: No tenderness to palpation about the left distal radius Patient reports some tenderness to palpation of the ulnar styloid No tenderness to palpation of the left anatomical snuffbox or scaphoid tubercle No tenderness to palpation of the left distal ulna ROM: Patient is able to make a closed fist and extend all digits of the left hand fully and without difficulty Skin: No lacerations or abrasions. General: Edema of the left wrist has resolved No erythema, ecchymosis, evidence of infection Psych: Appears grossly normal Affect normal Attitude cooperative Results Reviewed Results Reviewed: X-rays obtained in the office today and independently reviewed by me, Sai Garcia PA-C, demonstrate minimally displaced fracture of the left distal radius with approximately 2-3 degrees of apex volar angulation with evidence of interval bony healing Assessment & Plan Assessment & Plan (1) Fracture of left distal radius: Code(s): S52.502A - Unspecified fracture of the lower end of left radius, initial encounter for closed fracture Category: Medical Plan 1. Left distal radius fracture Date of injury 02/04/2025 Patient is educated about this condition The patient is educated about the typical treatment course for non or minimally displaced fractures, namely splinting, followed by casting, followed by gradual decreasing in immobilization Patient is educated that given the current alignment of her fracture, no operative intervention is indicated at this time Patient states understanding of this Patient is educated she should be limiting any weight-bearing in the left hand and wrist as much as possible However, I do feel that more casting is necessary, as the patient's x-ray does show very minimal evidence of interval bony healing at this time. Patient is given a Velcro wrist splint to wear with daytime activities Patient is educated she should remove this Velcro wrist splint while at rest to work on range of motion of the left wrist Patient is also referred to occupational therapy to begin working on range of motion of the left wrist Follow-up in 4 weeks with repeat x-rays, sooner with any acute concerns Orders: Orders XR wrist LT w scaphoid Today M25.532 - Pain in left wrist OT Evaluation and Treatment Today S52.502A - Unspecified fracture of the lower end of left radius, initial encounter for closed fracture Coding Level of Care Code Global (83258) Diagnoses Fracture of left distal radius S52.502A
[2025-03-22 10:47] VITALS: BMI 26.0
--- OUTSIDE RECORDS SUMMARY | 2025-03-22 12:41 | XMS_ITS | Clinical Summary ---
Author Organization [employer] Address [address] [facility] 7t [place] [address] Care Team Providers Care Software Writer Name Role Phone Angel Valentin Primary Care Provider [phone] Allergies Active Allergy Reactions Criticality Noted Date [...] ONCE DAILY 30 each 1 024 Active Aspirin Low Dose 81 MG chewable tabletIndications:Beau gn essential HTN,Pure hypercholesterolemia CHEW AND SWALLOW 1 TABLET BY MOUTH EVERY MORNING 90 tablet 025 Active losartan (Cozaar) 50 MG tabletIndications:Beau gn essential HTN TAKE 1 AND 1/2 TABLETS BY MOUTH IN THE MORNING 45 tablet 1 025 Active atorvastatin (Lipitor) 40 MG tabletIndications:Pure hypercholesterolemia TAKE 1 TABLET BY MOUTH EVERY DAY BEFORE BEDTIME 90 tablet 025 Active atorvastatin (Lipitor) 40 MG tabletIndications:Pure hypercholesterolemia TAKE 1 TABLET BY MOUTH EVERY DAY BEFORE BEDTIME 90 tablet 024 2024 Discontinued Active Problems Problem Noted [...] Encounters Date Type Department Care Team Description 03/17/2025 Refill [facility] [address] [place] [address] Angel Valentin ANP Pure hypercholesterolemia 03/02/2025 Telephone [facility] [address] [place] [address] Angel Valentin ANP Appointment Request 02/17/2025 Telephone [facility] [address] [place] [address] Angel Valentin ANP Call Back Request 02/16/2025 Refill [facility] [address] [place] [address] Angel Valentin ANP Benign essential HTN 02/08/2025 10:00 AM EDT Office Visit [facility] [address] [place] [address] Lucita Stevens MD Acute pain of left shoulder (Primary Dx); Left wrist pain; Benign essential HTN; Subconjunctival hemorrhage of left eye 02/08/2025 Results Follow-Up [facility] [address] [place] [address] Lucita Stevens MD XR Wrist 3+ Views Left 02/08/2025 Travel 01/18/2025 Travel from Last 3 Months Immunizations Immunization Administration [...] Description 05/12/2025 10:30 AM EST Office Visit [facility] [address] [place] [address] Angel Valentin ANP [address] [place] [address] Health Maintenance Due Date Last Done Comments [...] AM EDT Narrative 02/08/2025 12:24 [place] [address] XRay Report Signed Patient: Cindy Powers MR#: [id number] : 1945 Acct:[id number] Age/Sex: 79 / F ADM Date: 02/08/25 Loc: HO.HHCX Attending Dr: Lucita Rios MD Ordering Physician: Lucita Stevens MD Date of Service: 02/08/25 Procedure(s): XR wrist LT min 3V Accession Number(s): [id number] cc: Lucita Stevens MD EXAMINATION: XR WRIST, [...] 02/08/25 1221 DD/ 1003 TD/TT: 02/08/25 1020 Service Center Appraiser: Procedure Note Donotuseinterpreter, Image - 02/15/2025 [place] [address] XRay Report Signed Patient: Cindy Powers#: [id number] : 7Acct:[id number] Age/Sex: 79 / FADM Date: 02/08/25 Loc: HO.HHCX Attending Dr: Lucita Rios MD Ordering Physician: Lucita Stevens MD Date of Service: 02/08/25 Procedure(s): XR wrist LT min 3V Accession Number(s): [id number] cc: Lucita Stevens MD EXAMINATION: XR WRIST, [...] 02/08/25 1221 DD/ 1003 TD/TT: 02/08/25 1020 Service Center Appraiser: Lucita Rios MD IMG XR PROCEDURES Fernando svitlana Result - Final * XR Shoulder 2+ Views Left (02/08/2025 10:01 AM EDT) Anatomical Region Laterality Modality Upper Extremities, Shoulder Left Radi ographic Imaging 02/08/2025 10:0 1 AM EDT Narrative 02/08/2025 12:20 [place] [address] XRay Report Signed Patient: Cindy Powers MR#: [id number] : 1945 Acct:[id number] Age/Sex: 79 / F ADM Date: 02/08/25 Loc: HO.HHCX Attending Dr: Lucita Rios MD Ordering Physician: Lucita Stevens MD Date of Service: 02/08/25 Procedure(s): XR shoulder LT min 2V Accession Number(s): [id number] cc: Lucita Stevens MD EXAMINATION: XR SHOULDER, [...] 02/08/25 1218 DD/ 1001 TD/TT: 02/08/25 1020 Service Center Appraiser: Procedure Note Donotuseinterpreter, Image - 02/15/[address] [address] XRay Report Signed Patient: Cindy Powers#: [id number] : 7Acct:[id number] Age/Sex: 79 / FADM Date: 02/08/25 Loc: HO.HHCX Attending Dr: Lucita Rios MD Ordering Physician: Lucita Stevens MD Date of Service: 02/08/25 Procedure(s): XR shoulder LT min 2V Accession Number(s): [id number] cc: Lucita Stevens MD EXAMINATION: XR SHOULDER, [...] 02/08/25 1218 DD/ 1001 TD/TT: 02/08/25 1020 Service Center Appraiser: us Lucita Rios MD IMG XR PROCEDURES Fernando svitlana Result - Final * Hemoglobin A1c (11/18/2022 9:04 AM EDT) [facility] Hemoglobin A1c 5.5 <5.7 % of total Hgb [facility] [place] [employer] Comment: For the purpose of screening for the presence of diabetes: <5.7% Consistent with the absence of diabetes 5.7-6.4% Consistent with increased risk for diabetes (prediabetes) > or =6.5% Consistent with diabetes This assay result is consistent with a decreased risk of diabetes. Currently, no consensus exists regarding use of hemoglobin A1c for diagnosis of diabetes in children. According to [place] Diabetes Association (ADA) guidelines, hemoglobin A1c <7.0% represents optimal control in non- diabetic patients. Different metrics may apply to specific patient populations. Standards of Medical Care in Diabetes(ADA). Blood Venous blood specimen / Unknown 11/18/2022 9:04 AM EDT 11/18/2022 9:04 AM EDT Narrative [facility] - 11/18/2022 11:01 PM EDT FASTING:YES FASTING: YES [facility] LAB BLOOD ORDERABLES Final Resul t [facility] [address], [place] [address] [facility] [place] [facility] [address] [place] [address] * (ABNORMAL) Lipid Panel, Standard (11/18/2022 9:04 AM EDT) [facility] Cholesterol, Total 203(H) <200 mg/dL [facility] [place] [facility] HDL Cholesterol 73 > OR = 50 mg/dL [facility] [place] [facility] Triglycerides 105 <150 mg/dL [facility] [place] [facility] LDL Cholesterol 109(H) mg/dL (calc) [facility] [place] [facility] Comment: Reference range: <100 Desirable range <100 mg/dL for primary prevention; <70 mg/dL for patients with CHD or diabetic patients with > or = 2 CHD risk factors. LDL-C is now calculated using the Brayan-Solorzano calculation, which is a validated novel method providing better accuracy than the Friedewald equation in the estimation of LDL-C. Brayan SS et al. GREG. 2013;310(19): 3731-6355 (http://education.Ninua/faq/WKQ160) Chol/HDLC Ratio 2.8 <5.0 (calc) [facility] [place] [facility] Non-HDL Cholesterol 130(H) <130 mg/dL (calc) [facility] [place] [facility] Comment: For patients with diabetes plus 1 [...] CENTER LAB BLOOD ORDERABLES Final Resul t [facility] [address], [place] [address] [facility] [place] [facility] [address] [place] [address] * BI Mammogram Screening Tomosynthesis Bilateral (10/07/2022 8:59 AM EDT) Anatomical Region Laterality Modality Breast Bilateral Mammography 10/07/2022 8:59 AM EDT Narrative 10/08/2022 12:48 PM EDT [facility] [address] [place] [address] Mammography Report Signed Patient: Cindy Powers MR#: [id number] : 1945 Acct:[id number] Age/Sex: 76 / F ADM Date: 10/07/22 Loc: RADHA Attending Dr: Angel Valentin NP Ordering Physician: ANGEL VALENTIN NP Results: 1Negative Date of Service: 10/07/22 Follow Up: 1 Year From Orig inal Mammogram Procedure(s): MM tomosynthesis screening BI Accession Number(s): [id number] cc: ANGEL VALENTIN NP EXAMINATION: MM SCREENING [...] in OV> 10/08/22 1245 DD/ 0859 TD/TT: Service Center Appraiser: MENA Procedure Note Donotuseinterpreter, Image - 10/08/2022 [facility] [address] [place] [address] Mammography Report Signed Patient: Juan Powers#: [id number] : 7Acct:[id number] Age/Sex: 76 / FADM Date: 10/07/22 Loc: HO.MAMMO Attending Dr: Angel Valentin NP Ordering Physician: ANGEL VALENTIN NPResults: 1Negative Date of Service: 10/07/22Follow Up: 1 Year From Orig inal Mammogram Procedure(s): MM tomosynthesis screening BI Accession Number(s): [id number] cc: ANGEL VALENTIN NP EXAMINATION: MM SCREENING [...] in OV> 10/08/22 1245 DD/ 0859 TD/TT: Service Center Appraiser: MENA [facility] External Provider IMG BI PROCEDURES Final Result * Hm Colonoscopy (03/13/2017 4:26 PM EDT) Historical Provider HEALTH MAINTENANCE Final Result from Last 3 Months or Most Recently Relevant to Health Maintenance Insurance [employer] MEDICARE REPLACEMENT Care Teams Software Writer Relationship Specialty Start Date End Date Angel Valentin ANP [address] [place] [address] PCP - General Family Medicine 02/23/21
--- OUTSIDE RECORDS SUMMARY | 2025-03-22 12:41 | XMS_ITS | Encounter Summary ---
Author Organization [employer] Address [address] [facility] 7t [place] [address] Care Team Providers Care Staking Engineer Name Role Phone Mary Campo Primary Care Provider [phone] Encounter Details Date Type Department Care Team ([facility] st Contact Info) Description 09/16/2023 Orders Only [facility] [address] [place] [address] Provider, MD Jessica Social History Tobacco Use [...] Description 05/12/2025 10:30 AM EST Office Visit [facility] [address] [place] [address] Mary Campo ANP [address] [place] [address] documented as of this encounter Procedures Procedure Name Priority Date/Time Associated Diagnosis Comments HM COLONOSCOPY Routine 03/13/2017 4:26 PM EDT documented in this encounter Results * Hm Colonoscopy (03/13/2017 4:26 PM EDT) Historical Provider HEALTH MAINTENANCE Final Result documented in this encounter Visit Diagnoses Not on filedocumented in this encounter Care Teams Staking Engineer Relationship Specialty Start Date End Date Mary Campo ANP [address] [place] [address] PCP - General Family Medicine 02/23/21 documented as of this encounter
--- OUTSIDE RECORDS SUMMARY | 2025-03-22 12:41 | XMS_ITS | Encounter Summary ---
Author Organization [employer] Address [address] [facility] 7t [place] [address] Care Team Providers Care Telephone Operators Supervisor Name Role Phone Mary Campo Primary Care Provider [phone] Reason for Visit * Reason Comments Med Refill Encounter Details Date Type Department Care Team ([facility] st Contact Info) Description 03/17/2025 Refill [facility] [address] [place], [place] [phone] Mary Campo ANP [address] [place] [address] Pure hypercholesterolemia Social History Tobacco Use Types Packs/Day Years [...] Description 05/12/2025 10:30 AM EST Office Visit [facility] [address] [place] [address] Mary Campo ANP [address] [place] [address] documented as of this encounter Visit Diagnoses Diagnosis Pure hypercholesterolemia documented in this encounter Care Teams Telephone Operators Supervisor Relationship Specialty Start Date End Date Mary Campo ANP [address] [place] [address] PCP - General Family Medicine 02/23/21 documented as of this encounter
--- OUTSIDE RECORDS SUMMARY | 2025-03-22 12:41 | XMS_ITS | Encounter Summary ---
Author Organization [employer] Address [address] [facility] 7t [place] [address] Care Team Providers Care Sock Folder Name Role Phone CampoMary Primary Care Provider [phone] Reason for Referral * Consultation (Routine) - Pending Review Specialty Diagnoses / Procedures Referred By Jerri pillai Referred To Contact Pharmacy Diagnoses Benign essential HTN Rain Gallardo MD [address] [place] [address] Phone: tel: fax: Referral ID Status Reason Start Date Expiration Date Visits Requested Visits Authorized [id number] Pending Review Continuity of Care 12/20/2024 12/20/2025 6 6 Encounter Details Date Type Department Care Team (Late st Contact Info) Description 12/17/2024 Orders Only [facility] [address] [place] [address] Rain Gallardo MD [address] [place] [address] Benign essential HTN (Primary Dx) Social History [...] 10:30 AM EST Office Visit [facility] [address] [place] [address] Mary Campo ANP [address] [place] [address] Scheduled Referrals Name Type Priority Associated Diagnoses Orde r Schedule Referral to Pharmacy MTM Outpatient Referral Routine Benign essential HTN Ordered: 12/20/2024 documented as of this encounter Visit Diagnoses Diagnosis Benign essential HTN- Primary documented in this encounter Care Teams Sock Folder Relationship Specialty Start Date End Date Mary Campo ANP [address] [place] [address] PCP - General Family Medicine 02/23/21 documented as of this encounter
--- OUTSIDE RECORDS SUMMARY | 2025-03-22 12:41 | XMS_ITS | Encounter Summary ---
Author Organization [employer] [facility] Address [address] [facility] 7t [place] [address] Care Team Providers Care Human Resources Assistant Manager Name Role Phone Mary Campo Primary Care Provider [phone] Encounter Details Date Type Department Care Team [...] Description 05/12/2025 10:30 AM EST Office Visit [facility] [address] [place] [address] Mary Campo ANP [address] [place] [address] documented as of this encounter Visit Diagnoses Not on filedocumented in this encounter Care Teams Human Resources Assistant Manager Relationship Specialty Start Date End Date Mary Campo ANP [address] [place] [address] PCP - General Family Medicine 02/23/21 documented as of this encounter
== END 2025-03-22 11:12 | disposition home or self-care (01) ==
LOC: HO.HOS 10:24
PROVIDERS: PCP Internal Medicine
DX: S52.502A Unspecified fracture of the lower end of left radius, initial encounter for closed fracture (principal)
CPT/HCPCS: 99024

== ENCOUNTER 2025-03-22 10:24 | Outpatient (REF) | payer MEDICARE, SELFPAY ==
--- NOTE | ~2025-03-22 | XR_ITS ---
EXAMINATION: XR WRIST, LEFT CLINICAL INFORMATION: M25.532 - Pain in left wrist , follow-up fracture COMPARISON: 03/09/2025 TECHNIQUE: PA, lateral, oblique, and scaphoid views of the left wrist. FINDINGS: Again seen is an intra-articular fracture the distal radius with minimal loss of height of the radial styloid. There has been no change in the right shoulder in alignment compared with the prior. The ulnar styloid is also fractured. There is partial resorption of the mildly distracted ulnar styloid tip fracture fragment Again noted is moderate joint space narrowing, subchondral sclerosis, and osteophytes involving the first CMC joint. XR/XR wrist LT w scaphoid IMPRESSION: Early signs of healing of a distal radial and ulnar styloid fracture. Moderate first CMC joint osteoarthritis. Electronically signed by: Sarthak Grant MD 03/22/2025 10:55 AM EDT
== END 2025-03-22 10:25 | disposition home or self-care (01) ==
LOC: HO.HOSX 10:24
DX: Z47.89 Encounter for other orthopedic aftercare (principal); S52.502D Unspecified fracture of the lower end of left radius, subsequent encounter for closed fracture with routine healing; M25.532 Pain in left wrist
CPT/HCPCS: 73110; 99212

== ENCOUNTER → 2025-03-22 10:28 | Outpatient (BNV) | payer MEDICARE, SELFPAY | PROVIDERS: Visit Provider Radiology Diagnostic Radiology | DX: S52.571D Other intraarticular fracture of lower end of right radius, subsequent encounter for closed fracture with routine healing (principal) | CPT/HCPCS: 73110 ==

== ENCOUNTER 2025-04-26 08:55 | Outpatient (AMB) | payer MEDICARE, SELFPAY ==
--- NOTE | 2025-04-26 09:20 | MHC.OFFVIS ---
Vital Signs 04/26/25 09:24 Height 5 ft 2 in Weight 140 lb 3.424 oz BMI 25.6 BP 140/77 H Blood Pressure Location Rt brachial Position Sitting Pulse 87 Intake Visit Reasons: 6 mo f/u GERD & CIC Intake Note: Patient in office today in follow up of GERD and CIC. CC: Patient reports doing well as long as she take her medications. Facility Supervisor Required: Yes Facility Supervisor Language: Citizen [place] Allergies No Known Allergies Allergy (Verified 04/26/25 09:35) NOT APPLICABLE HPI HPI 6 mo f/u GERD & CIC: Details: Assessment & Plan (1) GERD (gastroesophageal reflux disease): Code(s): K21.9 - Gastro-esophageal reflux disease without esophagitis Category: Medical (2) Chronic idiopathic constipation: Code(s): K59.04 - Chronic idiopathic constipation Category: Medical Plan Citizen [place] #family member translates per pt request She is on bid pantoprazole and senna. She continues to be very satisfied with her GI regimen. She is not due for screening colonoscopy again until 2028. She is offered a yearly follow-up but prefers to stay at the six-month [facility]. Medications: Changed From pantoprazole (Protonix) 40 mg PO BID 30 days 60 tabs 6RF A04.8 - Other specified bacterial intestinal infections, K29.60 - Other gastritis without bleeding To pantoprazole (Protonix) 40 mg PO BID 90 days 180 tabs 1RF A04.8 - Other specified bacterial intestinal infections, K29.60 - Other gastritis without bleeding From sennosides (Senna Laxative) 17.2 mg (2 x 8.6 mg) PO BEDTIME 60 tabs 6RF K59.04 - Chronic idiopathic constipation To sennosides (Senna Laxative) 17.2 mg (2 x 8.6 mg) PO BEDTIME 90 days 180 tabs 1RF K59.04 - Chronic idiopathic constipation TODAYS VISIT Citizen [place] # PFSH Medical History (Updated 04/26/25 @ 16:32 by JOSIAH Durant) Erosive gastritis H. pylori infection Seizure disorder Hypertension Asthma GERD (gastroesophageal reflux disease) High cholesterol Polyarthritis Osteoporosis Surgical History (System 02/15/25 @ 09:14 by Sarah Downing CNA) History of esophagogastroduodenoscopy (EGD) H/O abdominal surgery H/O colonoscopy Social History (System 02/15/25 @ 09:14 by Sarah Downing CNA) Patient Tobacco Use Status: Never used Tobacco Review of Systems Const Denies fatigue, Denies fever(s), Denies night sweats, Denies poor appetite and Denies weight loss Eyes Details: glasses Reports requires corrective lenses ENT Reports Normal hearing present, Denies dental pain, Denies dysphagia, Denies hearing loss, Denies mouth pain, Denies odynophagia, Denies throat swelling, Denies tongue swelling and Reports other (Dentition adequate) Card Reports no additional complaints Resp Reports no additional complaints GI Details: Denies abdominal pain, Denies melena, Denies bloating, Denies hematochezia, Reports constipation, Denies GI cramping, Denies dysphagia, Denies excessive flatus, Denies early satiety, Reports heartburn, Denies diarrhea, Denies nausea, Denies odynophagia, Denies vomiting and Denies hematemesis Musc Reports myalgias and Reports arthralgias Skin/Breast Denies pruritus, Denies lesions, Denies rash and Denies jaundice Neuro Reports Normal hearing present and Denies Abnormal speech present Endo Denies fatigue Aller/Immun Denies throat swelling and Denies tongue swelling Physical Exam Vital Signs: Last Vital Signs Pulse 87 04/26/25 09:24 BP 140/77 H 04/26/25 09:24 BMI result Body Mass Index 25.6 Const General: cooperative, no acute distress, well developed and well groomed Nutritional Appearance: average body habitus and well nourished Orientation/consciousness: oriented to person, oriented to place and oriented to time Limitations: language barrier HEENT Head: Yes normocephalic and Yes atraumatic Eyes General: appearance normal, both eyes and all related structures Pupils: Equal, round and reactive pupils present Neck Neck: Yes normal visual inspection and Yes no lymphadenopathy Thyroid: Thyroid normal Resp Effort & Inspection: normal respiratory effort and able to speak in complete sentences Auscultation: clear to auscultation bilaterally Cardio Rate: regular rate Rhythm: regular rhythm Heart sounds: Normal, physiologic split S2 sound present Peripheral pulses: radial pulses present and posterior tibial pulses present GI Inspection: No distended and No Abdominal panniculus present Palpation (GI): Soft to palpation, nontender, no guarding, not rigid and No hepatosplenomegaly present Percussion: Yes normal to percussion Auscultation: normal bowel sounds Rectal Exam - Female: deferred Skin General skin exam: no rashes or lesions noted, turgor normal, skin not dry, no jaundice, No spider nevi and no striae Rashes: no rashes Nails: normal Neuro General: oriented to person, oriented to place and oriented to time Cranial nerves: Yes Equal, round and reactive pupils present and Yes Normal hearing present Speech: No Abnormal speech present Extrem General: Yes normal to inspection, No clubbing, No cyanosis and No edema Psych Appearance: grossly normal and well kempt Mental Status: mental status grossly normal Speech and movement: Normal speech and movement present Affect: normal affect Attitude: cooperative Thought process: Normal thought process present and not confabulating Thought content: Normal thought content present Insight: Fair insight present (Psych) Judgement: Fair judgement present (Psych) Assessment & Plan Assessment & Plan (1) GERD (gastroesophageal reflux disease): Code(s): K21.9 - Gastro-esophageal reflux disease without esophagitis Category: Medical (2) Chronic idiopathic constipation: Code(s): K59.04 - Chronic idiopathic constipation Category: Medical (3) Presbyesophagus: 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 She continues to do very well on her GI regimen and does not require any changes. The only new thing is that she fell tripping on a rug at home and fractured her arm and shoulder. She is recovering well but still has some lingering pain. Return office visit in 6 months Medications: Refilled pantoprazole (Protonix) 40 mg PO BID 180 tabs 1RF 90 days A04.8 - Other specified bacterial intestinal infections, K29.60 - Other gastritis without bleeding sennosides (Senna Laxative) 17.2 mg (2 x 8.6 mg) PO BEDTIME 180 tabs 1RF 90 days K59.04 - Chronic idiopathic constipation Coding Level of Care Code Est Pt Level 3 (90716) Diagnoses GERD (gastroesophageal reflux disease) K21.9 Chronic idiopathic constipation K59.04 Presbyesophagus K22.89
[2025-04-26 09:24] VITALS: BP 140/77; PULSE 87; BMI 25.6
--- OUTSIDE RECORDS SUMMARY | 2025-04-26 09:47 | XMS_ITS | Encounter Summary ---
Author Organization [facility] Address [address] [place] [address] Care Team Providers Care Roofing Subcontractor Name Role Phone Mary Campo Primary Care Provider [phone] Encounter Details Date Type Department Care Team ([facility] st Contact Info) Description 09/16/2023 Orders Only [facility] MEDICINE [address] [place] [address] Provider, MD Jessica Social History Tobacco Use [...] Description 05/12/2025 10:30 AM EST Office Visit [facility] MED[facility] [address] [place] [address] Mary Campo ANP [address] [place] [address] documented as of this encounter Procedures Procedure Name Priority Date/Time Associated Diagnosis Comments HM COLONOSCOPY Routine 03/13/2017 4:26 PM EDT documented in this encounter Results * Hm Colonoscopy (03/13/2017 4:26 PM EDT) Historical Provider HEALTH MAINTENANCE Final Result documented in this encounter Visit Diagnoses Not on filedocumented in this encounter Care Teams Roofing Subcontractor Relationship Specialty Start Date End Date Mary Campo ANP [address] [place] [id number] PCP - General Family Medicine 02/23/21 documented as of this encounter
--- OUTSIDE RECORDS SUMMARY | 2025-04-26 09:47 | XMS_ITS | Encounter Summary ---
Author Organization [facility] [employer] Address [address] [place] [address] Care Team Providers Care Overhauler Helper Name Role Phone CampoMary Primary Care Provider [phone] Reason for Referral * Consultation (Routine) - Pending Review Specialty Diagnoses / Procedures Referred By Jerri pillai Referred To Contact Pharmacy Diagnoses Benign essential HTN Rain Gallardo MD [address] [place] [address] Phone: tel: fax: Referral ID Status Reason Start Date Expiration Date Visits Requested Visits Authorized [id number] Pending Review Continuity of Care 12/20/2024 12/20/2025 6 6 Encounter Details Date Type Department Care Team (Late st Contact Info) Description 12/17/2024 Orders Only [facility] MEDICINE [address] [place] [address] Rain Gallardo MD [address] [place] [address] Benign essential HTN (Primary Dx) Social History Tobacco Use Types Packs/Day Years Used Date Smoking Tobacco: Never Smokeless Tobacco: Never Alcohol Use Standard Drinks/Week Comments Never 0 (1 standard drink = 0.6 oz pur e alcohol) Housing Stability Answer Date Recorded What is your housing situation today? I have jayesh rahsid 04/16/[address] you li [...] Office Visit [facility] [address] [place] [phone] Mary Campo ANP [address] [place] [phone] Scheduled Referrals Name Type Priority Associated Diagnoses Orde r Schedule Referral to Pharmacy MTM Outpatient Referral Routine Benign essential HTN Ordered: 12/20/2024 documented as of this encounter Visit Diagnoses Diagnosis Benign essential HTN- Primary documented in this encounter Care Teams Overhauler Helper Relationship Specialty Start Date End Date Mary Campo ANP [address] [place] [id number] PCP - General Family Medicine 02/23/21 documented as of this encounter
--- OUTSIDE RECORDS SUMMARY | 2025-04-26 09:47 | XMS_ITS | Clinical Summary ---
Author Organization [employer] Address [address] [facility] [address] [place] [address] Care Team Providers Care Silk Screen Printer Name Role Phone Angel Valentin Primary Care Provider [phone] Allergies Active Allergy Reactions Criticality Noted Date [...] DAILY 30 each 1 07/04/19 24 Active Aspirin Low Dose 81 MG chewable tabletIndications:Benig n essential HTN,Pure hypercholesterolemia CHEW AND SWALLOW 1 TABLET BY MOUTH EVERY MORNING 90 tablet 10/29/19 25 Active losartan (Cozaar) 50 MG tabletIndications:Benig n essential HTN TAKE 1 AND 1/2 TABLETS BY MOUTH IN THE MORNING 45 tablet 1 02/17/20 25 Active atorvastatin (Lipitor) 40 MG tabletIndications:Pure hypercholesterolemia TAKE 1 TABLET BY MOUTH EVERY DAY BEFORE BEDTIME 90 tablet 03/17/20 25 Active lidocaine (Lidoderm) 5 % patchIndications:Closed fracture of left wrist, initial encounter Apply 1 patch topically Once per day. Remove & discard patch within 12 hours or as directed by . 30 patch 2 04/05/20 25 026 Active Active Problems Problem Noted Date Diagnosed [...] Pure hypercholesterolemia 12/24/2011 Allergic rhinitis 06/30/1999 Seizure ([facility]/H[facility]) 06/30/1999 Encounters Date Type Department Care Team Description 04/05/2025 10:20 AM EDT Office Visit [facility] [address] [place] [address] Ajay Alexandra MD Closed fracture of left wrist, sequela (Primary Dx); Closed fracture of left wrist, initial encounter 04/05/2025 Travel 03/17/2025 Refill [facility] [address] [place] [address] Angel Valentin ANP Pure hypercholesterolemia 03/02/2025 Telephone [facility] [address] [place] [phone] Angel Valentin ANP Appointment Request 02/17/2025 Telephone [facility] [address] [place] [phone] Angel Valentin ANP Call Back Request 02/16/2025 Refill [facility] [address] [place] [phone] Angel Valentin ANP Benign essential HTN 02/08/2025 10:00 AM EDT Office Visit [facility] [address] [place] [phone] Lucita Stevens MD Acute pain of left shoulder (Primary Dx); Left wrist pain; Benign essential HTN; Subconjunctival hemorrhage of left eye 02/08/2025 Results Follow-Up [facility] [address] [place] [phone] Lucita Stevens MD XR Wrist 3+ Views Left 02/08/2025 Travel from Last 3 Months Immunizations Immunization [...] Sign Reading Time Taken Comments Blood Pressure 138/65 04/05/2025 10:29 AM EDT Pulse 75 04/05/2025 10:29 AM EDT Temperature 36.5 C (97.7 F) 04/05/2025 10:29 AM EDT Respiratory Rate 18 04/05/2025 10:29 AM EDT Oxygen Saturation 98% 04/05/2025 10:29 AM EDT Inhaled Oxygen Concentration - - Weight 62.4 kg (137 lb 9.6 oz) 04/05/2025 10:29 AM EDT Height 157.5 cm (5' 2 ) 04/22/2023 9:36 AM EDT Body Mass Index 25.17 04/22/2023 9:36 AM EDT Plan of Treatment Upcoming Encounters Date Type Department Care Team (Late st Contact Info) Description 05/12/2025 10:30 AM EST Office Visit [facility] [address] [place] [address] Angel Valentin ANP [address] [place] [address] Health Maintenance Due Date Last Done Comments [...] 03/17/2021, 03/10/2020, Additional history exists Tobacco Screening 04/05/2026 04/05/2025 Lipid Panel 11/19/2027 11/18/2022, 05/02, 01/12/2020 DTaP/Tdap/Td [...] AM EDT Narrative 02/08/2025 12:24 PM EDT [address] [address] XRay Report Signed Patient: Cindy Powers MR#: [id number] : 1945 Acct:[id number] Age/Sex: 79 / F ADM Date: 02/08/25 Loc: HO.HHCX Attending Dr: Lucita Rios MD Ordering Physician: Lucita Stevens MD Date of Service: 02/08/25 Procedure(s): XR wrist LT min 3V Accession Number(s): [id number] cc: Lucita Stevens MD EXAMINATION: XR WRIST, [...] 02/08/25 1221 DD/ 1003 TD/TT: 02/08/25 1020 Cook Cold Meat: Procedure Note Donotuseinterpreter, Image - 02/15/[address] [address] XRay Report Signed Patient: Cindy Powers#: [id number] : 7Acct:[id number] Age/Sex: 79 / FADM Date: 02/08/25 Loc: HO.HHCX Attending Dr: Lucita Rios MD Ordering Physician: Lucita Stevens MD Date of Service: 02/08/25 Procedure(s): XR wrist LT min 3V Accession Number(s): [id number] cc: Lucita Stevens MD EXAMINATION: XR WRIST, [...] 02/08/25 1221 DD/ 1003 TD/TT: 02/08/25 1020 Cook Cold Meat: Lucita Rios MD IMG XR PROCEDURES Fernando svitlana Result - Final * XR Shoulder 2+ Views Left (02/08/2025 10:01 AM EDT) Anatomical Region Laterality Modality Upper Extremities, Shoulder Left Radi ographic Imaging 02/08/2025 10:0 1 AM EDT Narrative 02/08/2025 12:20 PM EDT [address] [address] XRay Report Signed Patient: Cindy Powers MR#: [id number] : 1945 Acct:[id number] Age/Sex: 79 / F ADM Date: 02/08/25 Loc: HO.HHCX Attending Dr: Lucita Rios MD Ordering Physician: Lucita Stevens MD Date of Service: 02/08/25 Procedure(s): XR shoulder LT min 2V Accession Number(s): [id number] cc: Lucita Stevens MD EXAMINATION: XR SHOULDER, [...] Kehinde Dee MD 02/08/2025 12:18 PM EDT Dictated By: Kehinde Cash MD Signed By: <Electronically signed by Kehinde Vital MD in OV> 02/08/25 1218 DD/ 1001 TD/TT: 02/08/25 1020 Cook Cold Meat: Procedure Note Donotjeromeinterpreter, Image - 02/15/2025 [place] [address] XRay Report Signed Patient: Cindy Powers#: [id number] : 7Acct:[id number] Age/Sex: 79 / FADM Date: 02/08/25 Loc: HO.HHCX Attending Dr: Lucita Rios MD Ordering Physician: Lucita Stevens MD Date of Service: 02/08/25 Procedure(s): XR shoulder LT min 2V Accession Number(s): [id number] cc: Lucita Stevens MD EXAMINATION: XR SHOULDER, [...] Kehinde Dee MD 02/08/2025 12:18 PM EDT Dictated By: Kehinde Cash MD Signed By: <Electronically signed by Kehinde Vital MDin OV> 02/08/25 1218 DD/ 1001 TD/TT: 02/08/25 1020 Cook Cold Meat: Lucita Rios MD IMG XR PROCEDURES Fernando svitlana Result - Final * Hemoglobin A1c (11/18/2022 9:04 AM EDT) Hemoglobin A1c 5.5 <5.7 % of total Hgb [facility] [employer] [facility] Comment: For the purpose of screening for [...] 11/18/2022 11:01 PM EDT FASTING:YES FASTING: YES [facility] LAB BLOOD ORDERABLES Final Resul t [facility] [address], [place] [address] [facility] [address] [place] [address] * (ABNORMAL) Lipid Panel, Standard (11/18/2022 9:04 AM EDT) Cholesterol, Total 203(H) <200 mg/dL [facility] HDL Cholesterol 73 > OR = 50 mg/dL [facility] Triglycerides 105 <150 mg/dL [facility] LDL Cholesterol 109(H) mg/dL (calc) [facility] Comment: Reference range: <100 Desirable range <100 mg/dL for primary prevention; <70 mg/dL for patients with CHD or diabetic patients with > or = 2 CHD risk factors. LDL-C is now calculated using the Antonia calculation, which is a validated novel method providing better accuracy than the Friedewald equation in the estimation of LDL-C. Brayan SS et al. GREG. 2013;310(19): 7151-2244 (http://education.Midatech/faq/DCL900) Chol/HDLC Ratio 2.8 <5.0 (calc) [facility] Non-HDL Cholesterol 130(H) <130 mg/dL (calc) [facility] [employer] [facility] Comment: For patients with diabetes plus 1 major ASCVD risk factor, treating to a non-HDL-C goal of <100 mg/dL (LDL-C of <70 mg/dL) is considered a therapeutic option. Blood Venous blood specimen / Unknown 11/18/2022 9:04 AM EDT 11/18/2022 9:04 AM EDT Narrative [facility] - 11/18/2022 11:01 PM EDT FASTING:YES FASTING: YES [facility] LAB BLOOD ORDERABLES Final Resul t [facility] [address], [place] [address] [facility] [employer] [facility] [address] [place] [address] * BI Mammogram Screening Tomosynthesis Bilateral (10/07/2022 8:59 AM EDT) Anatomical Region Laterality Modality Breast Bilateral Mammography 10/07/2022 8:59 AM EDT Narrative 10/08/2022 12:48 PM EDT [facility] [address] [place] [address] [place] [address] Mammography Report Signed Patient: Cindy Powers MR#: [id number] : 1945 Acct:[id number] Age/Sex: 76 / F ADM Date: 10/07/22 Loc: MAMMO Attending Dr: Angel Valentin NP Ordering Physician: ANGEL VALENTIN NP Results: 1Negative Date of Service: 10/07/22 Follow Up: 1 Year From Orig ina Mammogram Procedure(s): MM tomosynthesis screening BI Accession Number(s): [id number] cc: ANGEL VALENTIN NP EXAMINATION: MM SCREENING [...] in OV> 10/08/22 1245 DD/ 0859 TD/TT: Cook Cold Meat: MNEA Procedure Note Donotuseinterpreter, Image - 10/08/2022 Brit [facility] [address] [place], [place] [address] Mammography Report Signed Patient: Juan Powers#: [id number] : 1945cct:[id number] Age/Sex: 76 / FADM Date: 10/07/22 Loc: HO.MAMMO Attending Dr: Angel Valentin NP Ordering Physician: ANGEL VALENTIN NPResults: 1Negative Date of Service: 10/07/22Follow Up: 1 Year From Orig inal Mammogram Procedure(s): MM tomosynthesis screening BI Accession Number(s): [id number] cc: ANGEL VALENTIN NP EXAMINATION: MM SCREENING [...] in OV> 10/08/22 1245 DD/ 0859 TD/TT: Cook Cold Meat: RAJ[facility] External Provider IMG BI PROCEDURES Final Result * Hm Colonoscopy (03/13/2017 4:26 PM EDT) Historical Provider HEALTH MAINTENANCE Final Result from Last 3 Months or Most Recently Relevant to Health Maintenance Insurance [address] [place] [phone] [employer] MED[employer]ARE REPLACEMENT Care Teams Silk Screen Printer Relationship Specialty Start Date End Date Angel Valentin ANP [address] [place] [phone] PCP - General Family Medicine 02/23/21
--- OUTSIDE RECORDS SUMMARY | 2025-04-26 09:47 | XMS_ITS | Encounter Summary ---
Author Organization [employer] [facility] Address [address] [facility] 7t [place] [address] Care Team Providers Care Podiatric Foot And Ankle Specialist Name Role Phone Mary Campo Primary Care Provider [phone] Encounter Details Date Type Department Care Team (Latest Contact Info) Description 09/21/2021 Abstract [facility] CONVERSIONS Dental, Provider, DDS Social History Tobacco [...] 05/12/2025 10:30 AM EST Office Visit [facility] [address] [place] [address] Mary Campo ANP [address] [place] [address] documented as of this encounter Visit Diagnoses Not on filedocumented in this encounter Care Teams Podiatric Foot And Ankle Specialist Relationship Specialty Start Date End Date Mary Campo ANP [address] [place] [address] PCP - General Family Medicine 02/23/21 documented as of this encounter
== END 2025-04-26 09:55 | disposition home or self-care (01) ==
PROVIDERS: PCP Nurse Practitioner Primary Care; Visit Provider Nurse Practitioner
DX: K21.9 Gastro-esophageal reflux disease without esophagitis (principal); K59.04 Chronic idiopathic constipation; K22.89 Other specified disease of esophagus
CPT/HCPCS: 99213

== ENCOUNTER → 2025-04-26 08:55 | Outpatient (BNVA) | payer MEDICARE, SELFPAY | PROVIDERS: PCP Nurse Practitioner Primary Care; Visit Provider Nurse Practitioner | DX: K21.9 Gastro-esophageal reflux disease without esophagitis (principal); K59.04 Chronic idiopathic constipation; K22.89 Other specified disease of esophagus | CPT/HCPCS: 99212 ==

== ENCOUNTER 2025-04-28 09:00 | Outpatient (RCR) | payer MEDICARE, SELFPAY ==
--- NOTE | 2025-03-28 12:08 | MHC.OT.OEV ---
[facility] Office [address] [phone] F: [phone] F: [phone] Occupational Therapy Evaluation Patient Name: Cindy Powers Diagnosis: (L)distal radius fx Date of Onset: 02/04/25 Date of Surgery: Attending Provider: Sai Garcia Prescribed Treatment: MD Follow Up Appointment: History of Current Condition: Patient is a 79 y/o Austrian speaking (R)handed female with PMHX of HTN, seizure disorder, OA who sustained a mechanical fall she tripped over her rug while walking barefoot in her apartment resulting in a distal radius fx (02/04/2025). Per report x-ray does show very minimal evidence of interval bony healing at this time, and she was casted longer. she lives alone in an apartment with elevator access and states PLOF as (I)ADLs/IADLs and (I)drives. She reported she has no support but her sister will drive her to appointments and to the grocery store. She report 10/10 pain that is pulsing/throbbing and waking her up at night. She states she does have tingling in the morning and at night. She reports she does not engage in hobbies . Significant Medical History: Seizure disorder Hypertension Asthma GERD (gastroesophageal reflux disease) High cholesterol Polyarthritis Osteoporosis Precautions/Contraindications: 2lb. weight limit Velcro wrist splint at rest to work on range of motion of the left wrist Patient Goals: Hand Dominance: Right Observations: QuickDASH Score: Prior Level of Function and Occupation Self Care, Employment, Leisure: (I)ADLs/IADLs No hobbies Living Situation, Family and/or Social Support: Lives alone reports no support Current Level of Function and Occupation Self Care, Employment, Leisure: Mod (A) ADLs/IADLs Sleep: Is waking up during the night due to pain Driving: Sister is driving her to medical appointments and grocery store Vision: Balance: Pain Assessment Pain Score: 10/10 Pain Scale Used: Numeric (0 - 10) Pain Location and Description: (L)wrist pulsing/throbbing 10/10 pain Aggravating Factors: Alleviating Factors: Tylenol Skin and Soft Tissue Assessment Skin and Soft Tissue: Comments: Skin intact mild edema present Nerve assessment Ulnar Nerve: Median Nerve: Radial Nerve: Comments: Sensory Assessment Temperature: Light Touch: Proprioception: Vibration: Comments: Edema Assessment Upper Extremity: Lower Extremity: Comments: (L) MCPs 17.1cms, wrist 15.6cms = 32.7cm (R)MCPs 17.7, wrist 14.5cms = 32.3cm Dexterity Assessment Dexterity: Comments: Special Tests Comments: 9 Hole Peg test=51.30 seconds. AROM(PROM) Strength Cervical Cervical Flexion: Cervical Extension: Cervical Lateral Flexion: Cervical Rotation: Comments: Shoulder Flexion: 40/110 Extension: 42 Abduction: 55/100 Internal Rotation: External Rotation: 30 Comments: Flexion: Extension: Abduction: Internal Rotation: External Rotation: Comments: Elbow Flexion: Extension: Pronation: Supination: Comments: WFL Flexion: Extension: Pronation: Supination: Comments: Wrist Flexion: 55 Extension: 55 Ulnar Deviation: 20 Radial Deviation: 27 Comments: Flexion: Extension: Ulnar Deviation: Radial Deviation: Comments: Thumb Thumb CMC Flexion: Thumb MCP Flexion: Thumb IP Flexion: Radial Abduction: Palmar Abduction: Camden (Kapandji 0-10): 10 Comments: WFL Digits Index MCP: PIP: DIP: Long MCP: PIP: DIP: Ring MCP: PIP: DIP: Small MCP: PIP: DIP: Comments: Can make composite fist Gross Grasp: Lateral Pinch: Two-Point Pinch: Three-Jaw King: Comments: Patient Education Primary Language: Healthcare Administrator Required: Yes Current Knowledge: Teaching Method: Handouts Verbal Education Needs Identified on Evaluation: ADL's Exercise Pain How did patient/family demonstrate learning? Patient demonstrates Patient verbalizes Barriers to Learning: None Readiness for Learning: Accepting Who was educated? Patient Comments: [facility] asl interpreter Plan of Care Assessment: Based on initial OT evaluation patient is 8 weeks s/p injury presenting with impaired ROM, impaired coordination, impaired strength, pain, edema and impaired performance of self care tasks. It was observed that patient has weakness throughout her (L)UE as she is unable to perform shoulder flexion and extension against gravity. She also demonstrates guarding of her wrist. Due to the documented impairments it is recommended that patient receive skilled OT services in order for patient to achieve her PLOF of (I) during self care tasks. Thank you for your referral. STG Duration: 2 weeks Short Term Goals: Patient will report 8/10 pain during self care tasks Patient will achieve 50* or great of active shoulder flexion Patient will achieve 52* or great of active shoulder abduction Patient will achieve 65* or greater of active wrist flexion Patient will achieve 65* or greater of active wrist extension LTG Duration: 4 weeks Residential Goals: Patient will report 1/10 pain in (L)wrist during self care tasks Patient will achieve shoulder ROM WFLs Patient will achieve wrist ROM WFLs Patient will be (I) with HEP Frequency and Duration: The patient will be seen 2x a week for 4 weeks Treatment Plan: Therapeutic Exercise Therapeutic Activity Home Exercise Program Splinting Neuro Re-ed Patient Education Desensitization/Sensory Re-ed Edema Control ADL Training Ultrasound NMES Iontophoresis Paraffin Fluidotherapy MHP Cold Packs Joint Mobilization Soft Tissue Mobilization Kinesiotaping Skilled OT eval and treat Electronically Signed By: Maryana Mcgowan OTR/L, CLT Reviewed/agree with student documentation: Therapist: Please sign and return to therapist, Thank you for your referral.
== END 2025-06-14 12:42 | disposition home or self-care (01) ==
LOC: HO.OT 09:00
DX: S52.502D Unspecified fracture of the lower end of left radius, subsequent encounter for closed fracture with routine healing (principal)
CPT/HCPCS: 97110; 97140; 97165; 97535

== ENCOUNTER 2025-04-29 11:20 | Outpatient (AMB) | payer MEDICARE, SELFPAY ==
--- NOTE | 2025-04-29 11:45 | MHC.OFFVIS ---
Vital Signs 04/29/25 11:55 Height 5 ft 2 in Weight 140 lb BMI 25.6 Intake Visit Reasons: OV- left wrist distal radius fx DOI 02/04/25 w/xray Intake Note: Cindy is a 79 year old right hand dominant female who presents today for follow up status post Left Distal Radius Fracture, DOI: 02/04/25. At her last visit she was transitioned to a Velcro wrist brace to be worn with daytime activities. Patient was educated she should be limiting any weight-bearing in the left hand and wrist as much as possible. Referral to Occupational Therapy placed. Supervisor Contingents Required: Yes Supervisor Contingents Language: Woods Warden Name: Suzy, MARIUSZA/CASS Allergies No Known Allergies Allergy (Verified 04/29/25 11:55) NOT APPLICABLE HPI HPI OV- left wrist distal radius fx DOI 02/04/25 w/xray: Details: Cindy is a 79 year old right hand dominant female who presents today for follow up status post Left Distal Radius Fracture, DOI: 02/04/25. At her last visit she was transitioned to a Velcro wrist brace to be worn with daytime activities. Patient was educated she should be limiting any weight-bearing in the left hand and wrist as much as possible. Referral to Occupational Therapy placed. [facility] Medical History (Updated 04/26/25 @ 16:32 by JOSIAH Durant) Erosive gastritis H. pylori infection Seizure disorder Hypertension Asthma GERD (gastroesophageal reflux disease) High cholesterol Polyarthritis Osteoporosis Surgical History (System 02/15/25 @ 09:14 by Sarah Downing CNA) History of esophagogastroduodenoscopy (EGD) H/O abdominal surgery H/O colonoscopy Social History (System 02/15/25 @ 09:14 by Sarah Downing CNA) Patient Tobacco Use Status: Never used Tobacco Review of Systems Const All systems reviewed & are unremarkable except as noted in HPI and below Physical Exam Extrem Other: Patient is alert, oriented, and in no acute distress. Neuro: Normal sensation of the tips of all digits of the left hand at this time Vascular: Cap refill brisk Pain: No tenderness to palpation about the left distal radius No tenderness to palpation of the left anatomical snuffbox or scaphoid tubercle No tenderness to palpation of the left distal ulna ROM: Patient is able to make a closed fist and extend all digits of the left hand fully and without difficulty Skin: No lacerations or abrasions. General: Edema of the left wrist has resolved No erythema, ecchymosis, evidence of infection Psych: Appears grossly normal Affect normal Attitude cooperative Assessment & Plan Assessment & Plan (1) Fracture of left distal radius: Code(s): S52.502A - Unspecified fracture of the lower end of left radius, initial encounter for closed fracture Category: Medical Plan 1. Left distal radius fracture Date of injury 02/04/2025 Patient is educated about this condition The patient is educated about the typical treatment course for non or minimally displaced fractures, namely splinting, followed by casting, followed by gradual decreasing in immobilization Patient is educated that given the current alignment of her fracture, no operative intervention is indicated at this time Patient states understanding of this 5 lb weight limit in the left hand and wrist until follow-up Patient is educated she should remove this Velcro wrist splint while at rest to work on range of motion of the left wrist, but should wear with high-risk daytime activities Patient is also referred to occupational therapy to begin working on range of motion of the left wrist Follow-up in 4 weeks for [id number] check sooner with any acute concerns Coding Level of Care Code Global (14639) Diagnoses Fracture of left distal radius S52.502A
[2025-04-29 11:55] VITALS: BMI 25.6
--- OUTSIDE RECORDS SUMMARY | 2025-04-29 12:54 | XMS_ITS | Encounter Summary ---
Author Organization [employer] Address [address] [facility] [address] [place] [address] Care Team Providers Care Windows Server Administrator Name Role Phone CampoMary Primary Care Provider [phone] Reason for Referral * Consultation (Routine) - Pending Review Specialty Diagnoses / Procedures Referred By Jerri pillai Referred To Contact Pharmacy Diagnoses Benign essential HTN Rain Gallardo MD [address] [place] [address] Phone: tel: fax: Referral ID Status Reason Start Date Expiration Date Visits Requested Visits Authorized [id number] Pending Review Continuity of Care 12/20/2024 12/20/2025 6 6 Encounter Details Date Type Department Care Team (Late st Contact Info) Description 12/17/2024 Orders Only [facility] [address] [place] [address] Rain Gallardo MD [address] [place] [address] Benign essential HTN (Primary Dx) Social History [...] Description 05/12/2025 10:30 AM EST Office Visit [facility] [address] [place] [phone] Mary Campo ANP [address] [place] [address] Scheduled Referrals Name Type Priority Associated Diagnoses Orde r Schedule Referral to Pharmacy MTM Outpatient Referral Routine Benign essential HTN Ordered: 12/20/2024 documented as of this encounter Visit Diagnoses Diagnosis Benign essential HTN- Primary documented in this encounter Care Teams Windows Server Administrator Relationship Specialty Start Date End Date Mary Campo ANP [address] [place] [address] PCP - General Family Medicine 02/23/21 documented as of this encounter
--- OUTSIDE RECORDS SUMMARY | 2025-04-29 12:54 | XMS_ITS | Encounter Summary ---
Author Organization [facility] Address [address] [facility] 7t [place] [address] Care Team Providers Care Reading Recovery Teacher Name Role Phone Mary Campo Primary Care Provider [phone] Encounter Details Date Type Department Care Team (Latest Contact Info) Description 09/21/2021 Abstract [facility] CONVERSIONS Dental, Provider, DDS Social [...] Description 05/12/2025 10:30 AM EST Office Visit [facility] [address] [place] [address] Mary Campo ANP [address] [place] [address] documented as of this encounter Visit Diagnoses Not on filedocumented in this encounter Care Teams Reading Recovery Teacher Relationship Specialty Start Date End Date Mary Campo ANP [address] [place] [address] PCP - General Family Medicine 02/23/21 documented as of this encounter
--- OUTSIDE RECORDS SUMMARY | 2025-04-29 12:54 | XMS_ITS | Clinical Summary ---
Author Organization [employer] Address [address] [facility] [address] [place] [address] Care Team Providers Care Nursing Assistant Name Role Phone Angel Valentin Primary Care Provider [phone] Allergies Active Allergy Reactions Criticality Noted Date [...] Pure hypercholesterolemia 12/24/2011 Allergic rhinitis 06/30/1999 Seizure ([facility]/HCC) 06/30/1999 Encounters Date Type Department Care Team Description 04/05/2025 10:20 AM EDT Office Visit [facility] [address] [place] [address] Ajay Alexandra MD Closed fracture of left wrist, sequela (Primary Dx); Closed fracture of left wrist, initial encounter 04/05/2025 Travel 03/17/2025 Refill [facility] [address] [place] [address] Angel Valentin ANP Pure hypercholesterolemia 03/02/2025 Telephone [facility] [address] [place] [phone] Angel Valentin ANP Appointment Request 02/17/2025 Telephone [facility] [address] [place] [phone] Angel Valentin ANP Call Back Request 02/16/2025 Refill [facility] [address] [place] [phone] Angel Valentin ANP Benign essential HTN 02/08/2025 10:00 AM EDT Office Visit [facility] [address] [place] [phone] Lucita Stevens MD Acute pain of left shoulder (Primary Dx); Left wrist pain; Benign essential HTN; Subconjunctival hemorrhage of left eye 02/08/2025 Results Follow-Up [facility] [address] [place] [phone] Lucita Stevens MD XR Wrist 3+ Views [...] Description 05/12/2025 10:30 AM EST Office Visit [facility] [address] [place] [address] Angel Valentin ANP [address] [place] [address] Health Maintenance Due Date Last Done Comments [...] AM EDT Narrative 02/08/2025 12:24 PM EDT [address] [address] XRay Report Signed Patient: Cindy Powers MR#: [id number] : 1945 Acct:[id number] Age/Sex: 79 / F ADM Date: 02/08/25 Loc: HO.HHCX Attending Dr: Lucita Rios MD Ordering Physician: Lucita Stevens MD Date of Service: 02/08/25 Procedure(s): XR wrist LT min 3V Accession Number(s): [id number] cc: Lucita Stevens MD EXAMINATION: XR WRIST, [...] 02/08/25 1221 DD/ 1003 TD/TT: 02/08/25 1020 Claim Benefit Specialist: Procedure Note Donotuseinterpreter, Image - 02/15/[address] [address] XRay Report Signed Patient: Cindy Powers#: [id number] : 7Acct:[id number] Age/Sex: 79 / FADM Date: 02/08/25 Loc: HO.HHCX Attending Dr: Lucita Rios MD Ordering Physician: Lucita Stevens MD Date of Service: 02/08/25 Procedure(s): XR wrist LT min 3V Accession Number(s): [id number] cc: Lucita Stevens MD EXAMINATION: XR WRIST, [...] of the left radius. Electronically signed by: Keihnde Dee MD 02/08/2025 12:21 PM EDT Dictated By: Kehinde Cash MD Signed By: <Electronically signed by Kehinde Vital MDin OV> 02/08/25 1221 DD/ 1003 TD/TT: 02/08/25 1020 Claim Benefit Specialist: Lucita Rios MD IMG XR PROCEDURES Fernando svitlana Result - Final * XR Shoulder 2+ Views Left (02/08/2025 10:01 AM EDT) Anatomical Region Laterality Modality Upper Extremities, Shoulder Left Radi ographic Imaging 02/08/2025 10:0 1 AM EDT Narrative 02/08/2025 12:20 PM EDT [address] [address] XRay Report Signed Patient: Cindy Powers MR#: [id number] : 1945 Acct:[id number] Age/Sex: 79 / F ADM Date: 02/08/25 Loc: HO.HHCX Attending Dr: Lucita Rios MD Ordering Physician: Lucita Stevens MD Date of Service: 02/08/25 Procedure(s): XR shoulder LT min 2V Accession Number(s): [id number] cc: Lucita Stevens MD EXAMINATION: XR SHOULDER, [...] 02/08/25 1218 DD/ 1001 TD/TT: 02/08/25 1020 Claim Benefit Specialist: Procedure Note Donotjeromeinterpreter, Image - 02/15/2025 [place] [address] XRay Report Signed Patient: Cindy Powers#: [id number] : 7Acct:[id number] Age/Sex: 79 / FADM Date: 02/08/25 Loc: HO.HHCX Attending Dr: Lucita Rios MD Ordering Physician: Lucita Stevens MD Date of Service: 02/08/25 Procedure(s): XR shoulder LT min 2V Accession Number(s): [id number] cc: Lucita Stevens MD EXAMINATION: XR SHOULDER, [...] 02/08/25 1218 DD/ 1001 TD/TT: 02/08/25 1020 Claim Benefit Specialist: Lucita Rios MD IMG XR PROCEDURES Fernando svitlana Result - Final * Hemoglobin A1c (11/18/2022 9:04 AM EDT) Hemoglobin A1c 5.5 <5.7 % of total Hgb [facility] [place] [facility] Comment: For the purpose of screening for the presence of diabetes: <5.7% Consistent with the absence of diabetes 5.7-6.4% Consistent with increased risk for diabetes (prediabetes) > or =6.5% Consistent with diabetes This assay result is consistent with a decreased risk of diabetes. Currently, no consensus exists regarding use of hemoglobin A1c for diagnosis of diabetes in children. According to [place] Diabetes Association (ADA) guidelines, hemoglobin A1c <7.0% represents optimal control in non- diabetic patients. Different metrics may apply to specific patient populations. Standards of Medical Care in Diabetes(ADA). Blood Venous blood specimen / Unknown 11/18/2022 9:04 AM EDT 11/18/2022 9:04 AM EDT Narrative [facility] - 11/18/2022 11:01 PM EDT FASTING:YES FASTING: YES [facility] LAB BLOOD ORDERABLES Final Resul t [facility] [address], [place] [address] [facility] [place] [facility] [address] [place] [address] * (ABNORMAL) Lipid Panel, Standard (11/18/2022 9:04 AM EDT) Cholesterol, Total 203(H) <200 mg/dL [facility] [place] [facility] HDL Cholesterol 73 > OR = 50 mg/dL [facility] [place] [facility] Triglycerides 105 <150 mg/dL [facility] [place] [facility] LDL Cholesterol 109(H) mg/dL (calc) [facility] [place] [facility] Comment: Reference range: <100 Desirable range <100 mg/dL for primary prevention; <70 mg/dL for patients with CHD or diabetic patients with > or = 2 CHD risk factors. LDL-C is now calculated using the Antonia calculation, which is a validated novel method providing better accuracy than the Friedewald equation in the estimation of LDL-C. Brayan SS et al. GREG. 2013;310(19): 7523-1057 (http://education.[employer]/faq/CZI323) Chol/HDLC Ratio 2.8 <5.0 (calc) [facility] [place] [facility] Non-HDL Cholesterol 130(H) <130 mg/dL (calc) [facility] [place] [facility] Comment: For patients with diabetes plus 1 major ASCVD risk factor, treating to a non-HDL-C goal of <100 mg/dL (LDL-C of <70 mg/dL) is considered a therapeutic option. Blood Venous blood specimen / Unknown 11/18/2022 9:04 AM EDT 11/18/2022 9:04 AM EDT Narrative [facility] - 11/18/2022 11:01 PM EDT FASTING:YES FASTING: YES [facility] LAB BLOOD ORDERABLES Final Resul t [facility] [address], [place] [address] [facility] [place] [facility] [address] [place] [address] * BI Mammogram Screening Tomosynthesis Bilateral (10/07/2022 8:59 AM EDT) Anatomical Region Laterality Modality Breast Bilateral Mammography 10/07/2022 8:59 AM EDT Narrative 10/08/2022 12:48 PM EDT [facility] [address] [place] [address] [place] [address] Mammography Report Signed Patient: Cindy Powers MR#: [id number] : 1945 Acct:[id number] Age/Sex: 76 / F ADM Date: 10/07/22 Loc: MAMMO Attending Dr: Angel Valentin NP Ordering Physician: ANGEL VALENTIN NP Results: 1Negative Date of Service: 10/07/22 Follow Up: 1 Year From Orig ina Mammogram Procedure(s): MM tomosynthesis screening BI Accession Number(s): [id number] cc: ANGEL VALENTIN NP EXAMINATION: MM SCREENING [...] in OV> 10/08/22 1245 DD/ 0859 TD/TT: Claim Benefit Specialist: MENA Procedure Note Donotuseinterpreter, Image - 10/08/2022 Brit [facility] [address] [place], [place] [address] Mammography Report Signed Patient: Juan Powers#: [id number] : 1945cct:[id number] Age/Sex: 76 / FADM Date: 10/07/22 Loc: HO.MAMMO Attending Dr: Angel Valentin NP Ordering Physician: ANGEL VALENTIN NPResults: 1Negative Date of Service: 10/07/22Follow Up: 1 Year From Orig inal Mammogram Procedure(s): MM tomosynthesis screening BI Accession Number(s): [id number] cc: ANGEL VALENTIN NP EXAMINATION: MM SCREENING [...] in OV> 10/08/22 1245 DD/ 0859 TD/TT: Claim Benefit Specialist: RAJESH [facility] External Provider IMG BI PROCEDURES Final Result * Hm Colonoscopy (03/13/2017 4:26 PM EDT) Historical Provider HEALTH MAINTENANCE Final Result from Last 3 Months or Most Recently Relevant to Health Maintenance Insurance [address] [place] [id number] [employer] MED[employer]ARE REPLACEMENT Care Teams Nursing Assistant Relationship Specialty Start Date End Date Angel Valentin ANP [address] [place] [phone] PCP - General Family Medicine 02/23/21
--- OUTSIDE RECORDS SUMMARY | 2025-04-29 12:54 | XMS_ITS | Encounter Summary ---
Author Organization [employer] Address [address] [facility] 7t [place] [address] Care Team Providers Care Icu Manager Name Role Phone Mary Campo Primary Care Provider [phone] Encounter Details Date Type Department Care Team ([facility] st Contact Info) Description 09/16/2023 Orders Only [facility] [address] [place] [address] Provider, MD Jessica Social History Tobacco Use [...] Description 05/12/2025 10:30 AM EST Office Visit [facility] [address] [place] [address] Mary Campo ANP [address] [place] [address] documented as of this encounter Procedures Procedure Name Priority Date/Time Associated Diagnosis Comments HM COLONOSCOPY Routine 03/13/2017 4:26 PM EDT documented in this encounter Results * Hm Colonoscopy (03/13/2017 4:26 PM EDT) Historical Provider HEALTH MAINTENANCE Final Result documented in this encounter Visit Diagnoses Not on filedocumented in this encounter Care Teams Icu Manager Relationship Specialty Start Date End Date Mary Campo ANP [address] [place] [phone] PCP - General Family Medicine 02/23/21 documented as of this encounter
== END 2025-04-29 11:55 | disposition home or self-care (01) ==
PROVIDERS: PCP Nurse Practitioner Primary Care
DX: S52.502A Unspecified fracture of the lower end of left radius, initial encounter for closed fracture (principal)
CPT/HCPCS: 99024

== ENCOUNTER → 2025-04-29 11:20 | Outpatient (BNVA) | payer MEDICARE, SELFPAY | PROVIDERS: PCP Nurse Practitioner Primary Care | DX: S52.502A Unspecified fracture of the lower end of left radius, initial encounter for closed fracture (principal) | CPT/HCPCS: 99212 ==

== ENCOUNTER 2025-05-13 08:30 | Outpatient (AMB) | payer MEDICARE, SELFPAY ==
--- OUTSIDE RECORDS SUMMARY | 2025-05-12 10:30 | XMS_ITS | Encounter Summary ---
Author Organization [employer] Address [address] [facility] [address] [place] [address] Care Team Providers Care Mortgage Loan Coordinator Name Role Phone Mary Campo Primary Care Provider [phone] Reason for Referral * Imaging (Routine) - Authorized Specialty Diagnoses / Procedures Referred By Jerri pillai Referred To Contact Radiology Diagnoses Closed fracture of left wrist, sequela Procedures BD DEXA Axial Mary Campo ANP [address] [place] [address] Phone: tel: fax: [address] Phone: tel: fax: Referral ID Status Reason Start Date Expiration Date V isits Requested Visits Authorized [id number] Authorized 05/12/2025 05/12/2026 1 1 * Imaging (Routine) - Authorized Specialty Diagnoses / Procedures Referred By Jerri pillai Referred To Contact Radiology Diagnoses Screening mammogram for breast cancer Procedures BI Mammogram Screening Bilateral Mary Campo ANP [address] [place] [address] Phone: tel: fax: [address] Phone: tel: fax: Referral ID Status Reason Start Date Expiration Date V isits Requested Visits Authorized [id number] Authorized 05/12/2025 05/12/2026 1 1 Reason for Visit * Reason Comments Wound Check Encounter Details Date Type Department Care Team (Late st Contact Info) Description 05/12/2025 10:30 AM EST Office Visit [facility] [address] [place] [address] Mary Campo ANP [address] [place] [address] Prediabetes (Primary Dx); Rash; Pure hypercholesterolemia; Hypertensive retinopathy, unspecified laterality; Benign essential HTN; Mild intermittent asthma without complication; Screening mammogram for breast cancer; Closed fracture of left wrist, sequela; Seizure disorder (CMS/HCC) ([facility]); Mild depression; Laryngospasm; Seizure (CMS/HCC) ([facility]); Cardiovascular event risk; Presbyesophagus; Exercise counseling; Dietary counseling; Gastroesophageal reflux disease, unspecified whether esophagitis present Social History Tobacco Use Types Packs/Day Years Used Date Smoking Tobacco: Never Smokeless Tobacco: Never Alcohol Use Standard Drinks/Week Comments Never 0 (1 standard drink = 0.6 oz pur e alcohol) Depression Answer Date Recorded Patient Health Questionnaire-9 Score 6 05/12/2025 Patient Health Questionnaire-9 Score 6 05/12/2025 Last PHQ-9: Questionnaire Data Not on file 1 07/12/2024 Housing Stability Answer Date Recorded What is your housing situation today? I have jayesh rashid 05/12/[address] you li ve. Do you have problems with any of the following? None of the above 05/12/2025 Food Insecurity Answer Date Recorded Within the past 12 months, y ou worried that your food would run out before you got money to buy more: Never True 05/12/2025 Within the past 12 months,th e food you bought just didn't last and you didn't have enough money to get more: Never True Transportation Answer Date Recorded In the past 12 months, has l ack of transportation kept you from medical appts, meetings, work or from getting things needed for daily living? No 05/12/2025 Utilities Answer Date Recorded In the past 12 months, has t he electric, gas, oil or water company threatened to shut off services in your home? No 05/12/2025 Depression Answer Date Recorded Patient Health Questionnaire-2 Score 0 05/12/2025 Internet Access Answer Date Recorded Internet Access Q1 Yes 05/12/2025 Internet Access Q2 Not on file 05/12/2025 Comments Unknown Sex and Gender Information Value Date Recorded Sex Assigned at Female 04/29/2022 10:16 AM EDT Legal Sex Female 10:16 AM EDT Gender Identity Female 04/29/2022 10:16 AM EDT Sexual Orientation Straight 04/29/2022 10 :16 AM EDT documented as of this encounter Last Filed Vital Signs Vital Sign Reading Time Taken Comments Blood Pressure 130/72 05/12/2025 10:47 AM EST Pulse 87 05/12/2025 10:47 AM EST Temperature 36.3 C (97.4 F) 05/12/2025 10:47 AM EST Respiratory Rate 14 05/12/2025 10:47 AM EST Oxygen Saturation 96% 05/12/2025 10:47 AM EST Inhaled Oxygen Concentration - - Weight 63.6 kg (140 lb 4 oz) 05/12/2025 10:47 AM EST Height 157.5 cm (5' 2 ) 05/12/2025 10:47 AM EST Body Mass Index 25.65 05/12/2025 10:47 AM EST documented in this encounter Functional Status * Over the past 2 weeks, how often have you been bothered by any of the following problems? Question Answer Date of Assessment Author Patient Health Questionnaire -2 Score 0 05/12/2025 10:50 AM EST Nga Ruiz [place] * Little interest or pleasure in doing things Answer Date of Assessment Author Not at all 05/12/2025 10:50 AM EST Nga Ruiz [place] * Feeling down, depressed, or hopeless Answer Date of Assessment Author Not at all 05/12/2025 10:50 AM EST Nga Ruiz [place] * Trouble falling or staying asleep, or sleeping too much Answer Date of Assessment Author Not at all 05/12/2025 10:50 AM EST Nga Ruiz [place] * Feeling tired or having little energy Answer Date of Assessment Author Not at all 05/12/2025 10:50 AM EST Nga Ruiz [place] * Poor appetite or overeating Answer Date of Assessment Author Nearly every day 05/12/2025 10:50 AM Nga Oshea [place] * Feeling bad about yourself - or that you are a failure or have let yourself or your family down Answer Date of Assessment Author Not at all 05/12/2025 10:50 AM Nga Oshea [place] * Trouble concentrating on things, such as reading the newspaper or watching television Answer Date of Assessment Author Not at all 05/12/2025 10:50 AM Nga Oshea [place] * Moving or speaking so slowly that other people could have noticed? Or the opposite - being so fidgety or restless that you have been moving around a lot more than usual. Answer Date of Assessment Author Nearly every day 05/12/2025 10:50 AM Nga Oshea [place] * Thoughts that you would be better off or hurting yourself in some way Answer Date of Assessment Author Not at all 05/12/2025 10:50 AM Nga Oshea [place] * Patient Health Questionnaire-9 Score Answer Date of Assessment Author 6 05/12/2025 10:50 AM Nga Oshea [place] * Over the last 2 weeks, how often have you been bothered by any of the following problems? Question Answer Date of Assessment Author Feeling nervous, anxious, or on edge 0 05/12/2025 10:51 AM Nga Oshea [place] Not being able to stop or co ntrol worrying 0 05/12/2025 10:51 AM Nga Oshea MA Worrying too much about diff erent things 0 05/12/2025 10:51 AM Nga Oshea MA Trouble relaxing 0 05/12/2025 10:51 AM Nga Oshea MA Being so restless that it is hard to sit still 3 05/12/2025 10:51 AM Nga Oshea MA Becoming easily annoyed or irritable 2 05/12/2025 10:51 AM Nga Oshea MA Feeling afraid as if somethi ng awful might happen 0 05/12/2025 10:51 AM Nga Oshea MA ANJANA-7 Total Score 5 05/12/2025 10:51 AM Nga Oshea MA * How difficult have these problems made it for you to do your work, take care of things at home, or get along with other people? Answer Date of Assessment Author Not difficult at all 05/12/2025 10:50 AM EST Patrick Nga rodriguez MA documented as of this encounter Patient Instructions * Patient Instructions* ULYSSES Venegas - 05/12/2025 10:30 AM EST Labs before our next visit, these should be fasting. Please make sure you are taking your pantoprazole from September for your acid reflux. This should helpyour dry cough. Please try to eat small frequent meals to stimulate your appetite. Los an??lisis de laboratorio deben realizarse en ayunas antes de nuestra pr??xima visita. Por favor, aseg??rese de estar tomando conner pantoprazol desde taran para el reflujo ??cido. Atkins deber??a ayudar con la tos seca. Por favor, intente comer doyle??as porciones con frecuencia para estimular conner apetito. documented in this encounter Progress Notes * ULYSSES Venegas - 05/12/2025 10:30 AM EST Images from the original note were not included. Subjective Cindy is here for routine follow-up chronic conditions. Non-smoker PMH GERD, gastritis, hypertension, asthma, preDM, HLD, h/o seizure d/o w/o seizure in many years H/o h. Pylori infx tx'd 01/2024 Of note: Did have laryngospasm s/p anesthesia for C-scope and EGD, had to use BiPAP - note for future sedations. 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 Does have left wrist distal radius fx DOI 02/04/25 now established w/ orthopedics, trip and fall ontoL hand Rash and Pruritus - Rash onset approximately 2 weeks prior to visit - Pruritus associated with rash - Rash present on shins bilaterally - Alcohol applied to affected areas w/o improvement Cough and Sensation of Choking - Sensation of choking during prolonged talking - Frequent dry cough - No cold or other specific symptoms reported - Requires sips of water during long conversations Asthma - Last use of asthma medication was a long time ago Menopause - Menopause estimated at age 51 Bone Density - Last bone density check 4 years ago Eye Surgery - Advised by eye doctor to have surgery Depression - Denies depression Misc - Received flu and COVID vaccines in February Review of Systems Constitutional: Negative for chills and fever. HENT: Negative for sore throat. Respiratory: Positive for cough. Negative for shortness of breath and wheezing. Cardiovascular: Negative for chest pain. Gastrointestinal: Negative for constipation and diarrhea. Endocrine: Negative for polydipsia, polyphagia and polyuria. Genitourinary: Negative for dysuria. Musculoskeletal: Positive for arthralgias. Skin: Positive for rash. Neurological: Negative for weakness. Objective Blood pressure 130/72, pulse 87, temperature 97.4 ??F (36.3 ??C), temperature source Oral, resp. rate 14, height 5' 2 (1.575 m), weight 140 lb 4 oz (63.6 kg), SpO2 96%. Physical Exam Constitutional: General: She is not in acute distress. Appearance: Normal appearance. She is not ill-appearing. HENT: Head: Normocephalic and atraumatic. Eyes: General: No scleral icterus. Extraocular Movements: Extraocular movements intact. Pupils: Pupils are equal, round, and reactive to light. Cardiovascular: Rate and Rhythm: Normal rate and regular rhythm. Pulmonary: Effort: Pulmonary effort is normal. No accessory muscle usage or respiratory distress. Breath sounds: Normal breath sounds. Musculoskeletal: Comments: kyphosis Skin: Comments: Faint macular rash vs irritation as above Neurological: Mental Status: She is alert and oriented to person, place, and time. Psychiatric: Mood and Affect: Mood normal. Behavior: Behavior normal. Assessment & Plan Diagnoses and all orders for this visit: Prediabetes Comments: A1c at goal. cont lifesyle interventions Orders: - POCT Glucose - POCT Hgb A1c Rash Comments: mild faint irritation of anterior bilat anderson, localized. recommend not to scratch, moisturize well,use hypoallergenic products and trial: Orders: - triamcinolone (Kenalog) 0.1 % cream; Apply twice daily to affected areas as needed for rash/ithcing Pure hypercholesterolemia Comments: cont statin, ASA, lifestyle interventions Orders: - Lipid Panel, Standard; Future - aspirin 81 MG EC tablet; Take 1 tablet (81 mg) by mouth Once per day. Hypertensive retinopathy, unspecified laterality Comments: BP at goal; eye exam UTD per pt, will be getting cataract surg next year Benign essential hypertension Update labs At/near goal today, </= 130/80. Continue to encourage low salt diet, regular exercise, home BP monitoring, compliance with medications. Call clinic if BP is frequently >150/90 Go to ED/call 911 if > 170/100 and having sx such as VIRAMONTES, visual changes, chest pain, SOB Last renal function: Lab Results Component Value Date GLUCOSE 104 (H) 11/18/2022 NA 138 11/18/2022 K 4.1 11/18/2022 CO2 26 11/18/2022 CL 103 11/18/2022 BUN 22 11/18/2022 CREATININE 0.74 11/18/2022 EGFR 84 11/18/2022 Lab Results Component Value Date MICROALBCREA 13 05/29/2021 No results found for: MICROALBCREU - Albumin, Random Urine W/Creatinine; Future - Basic Metabolic Panel; Future Mild intermittent asthma without complication - albuterol (Ventolin HFA) 108 (90 Base) MCG/ACT inhaler; INHALE 2 PUFFS BY MOUTH EVERY 4 HOURS NEEDED FOR WHEEZING OR SHORTNESS OF BREATH Screening mammogram for breast cancer - BI Mammogram Screening Bilateral; Future Closed fracture of left wrist, sequela Comments: cont plan per ortho and PT; update DEXA, will need refill of ca-vit D pending DEXA Orders: - BD DEXA Axial; Future Osteoporosis screening: - w/ recent fx - Bone health screening indicated; prior bone density testing reported 4 years ago. - Ordered bone density test; hospital to call to schedule. Advised calcium and vitamin D intake status reviewed. Seizure (CMS/HCC) ([facility]) Comments: no recent seizure, not on meds Mild depression Comments: declines BH today. re: low appetite, encouraged her to eat w/ friends/fam and to eat small freq meals Laryngospasm Comments: Did have laryngospasm s/p anesthesia for C-scope and EGD, had to use BiPAP - note for future sedations. Added to problem list. Cardiovascular event risk Comments: refilled ASA, cont statin Orders: - aspirin 81 MG EC tablet; Take 1 tablet (81 mg) by mouth Once per day. GERD Chronic cough possibly related to gastroesophageal reflux: - Cough attributed to acid reflux; dry cough discussed as reflux-related. - Ensure adherence to pantoprazole (Protonix); provided pillbox to improve medication compliance. Presbyesophagus Comments: per GI: severe presbyesophagus with non propulsive peristalsis of the esophagus on barium swallow. Exercise counseling Lifestyle recommendations to improve heart health & lower cholesterol: be as active as able, ideally exercise 150min moderate intensity or 75min vigorous intensity weekly; increase intake of vegetables, fruits, whole grains, fish. Try to minimize intake of sugary or greasy food and drink. Use olive oil or vegetable, peanut, canola, or similar oil for cooking. Decrease or stop drinking alcoholif you drink, quit/decrease smoking if you smoke. Dietary counseling As above This note was drafted using Ambient (AI) technology. The patient/patient's guardian has been informed and has consented to the use of this technology: Yes Nga MAHONEY provided Kinyarwanda interpretation. documented in this encounter Plan of Treatment Scheduled Orders Name Type Priority Associated Diagnoses Orde r Schedule Lipid Panel, Standard Lab Routine Pure hypercholesterolemia Expected: 05/12/2025 (Approximate), Expires: 05/12/2026 Albumin, Random Urine W/Creatinine Lab Routine Benign essential HTN Expected: 05/12/2025 (Approximate), Expires: 05/12/2026 Basic Metabolic Panel Lab Routine Benign essential HTN Expected: 05/12/2025 (Approximate), Expires: 05/12/2026 BI Mammogram Screening Bilateral Imaging Routine Screening mammogram for breast cancer Expected: 05/12/2025, Expires: 05/13/2026 BD DEXA Axial Imaging Routine Closed fracture of left wrist, sequela Expected: 05/12/2025 (Approximate), Expires: 05/12/2026 documented as of this encounter Procedures Procedure Name Priority Date/Time Associated Diagnosis Comments POCT GLYCATED HEMOGLOBIN, TOTAL Routine 05/12/2025 10:49 AM EST Prediabetes POCT GLUCOSE Routine 05/12/2025 10:49 AM EST Prediabetes documented in this encounter Results * POCT Hgb A1c (05/12/2025 10:49 AM EST) Hemoglobin A1C 5.5 4.0 - 5.7 % QC Media Lot # [id number] Lot# Expiration Date 5548,[id number] Blood 05/12/2025 10:4 9 AM EST us Mary ARORA POINT OF CARE TEST ENTER/EDIT OR DERABLES Final Result * POCT Glucose (05/12/2025 10:49 AM EST) Glucose Blood, POC 115 60 - 200 mg/dL QC Media Lot # [id number] Lot# Expiration Date [id number] Blood Capillary blood specimen / Unknown 05/12/2025 10:49 AM EST Result Neda ARORA POINT OF CARE TEST ENTER/EDIT OR DERABLES Final Result documented in this encounter Visit Diagnoses Diagnosis Prediabetes- Primary Other abnormal glucose Rash Rash and other nonspecific skin eruption Pure hypercholesterolemia Hypertensive retinopathy, unspecified laterality Benign essential HTN Mild intermittent asthma without complication Screening mammogram for breast cancer Closed fracture of left wrist, sequela [facility] ([facility]) Unspecified epilepsy without mention of intractable epilepsy Mild depression Depressive disorder, not elsewhere classified Laryngospasm Laryngeal spasm Seizure ([facility]) ([facility]) Other convulsions Cardiovascular event risk Presbyesophagus Other specified disorder of the esophagus Exercise counseling Dietary counseling Dietary surveillance and counseling Gastroesophageal reflux disease, unspecified whether esophagitis present documented in this encounter Additional Health Concerns Assessment Noted Time PHQ-9 Depression Total Score: 6 05/12/20 25 10:50 AM EST documented as of this encounter Care Teams Mortgage Loan Coordinator Relationship Specialty Start Date End Date Mary Campo ANP [address] [place] [id number] PCP - General Family Medicine 02/23/21 documented as of this encounter
--- NOTE | 2025-05-13 08:41 | MHC.OFFVIS ---
Vital Signs 05/13/25 08:48 Height 5 ft 2 in Weight 140 lb BMI 25.6 Handedness Right Intake Visit Reasons: New Prob - left shoulder pain Intake Note: Cindy is a 79 year old right hand dominant female who presents today for a evaluation of her left shoulder pain. Patient reports ongoing pain since January. She mentions that her pain is on the lateral aspect of the shoulder and it moves down her biceps. Her pain is worse when she is over head reaching, reaching for her back and lifting her arm up. Patient states that she also had a fracture in her left hand. She states trying Tylenol with no relief. Pastoral Ministries Professor Services: Pastoral Ministries Professor Present ([phone] (Carlos)) Allergies No Known Allergies Allergy (Verified 04/29/25 11:55) NOT APPLICABLE HPI HPI New Prob - left shoulder pain: Details: Ms. Capps is a 79 year-old right hand dominant female who presents to the office today for evaluation of left shoulder pain. She reports that the pain has been present since January. She denies any injury or trauma. However during that time she did sustain a wrist fracture and was likely not using the upper extremity as much and performing motion. She reports that the pain is located along the lateral aspect of the shoulder moves down towards her biceps. Pain is worsened with overhead reaching as well as reaching behind her back. She has been taking Tylenol with no relief. [facility] Medical History (Updated 05/13/25 @ 11:30 by Thalia Edward PA-C) Erosive gastritis H. pylori infection Seizure disorder Hypertension Asthma GERD (gastroesophageal reflux disease) High cholesterol Polyarthritis Osteoporosis Surgical History (System 02/15/25 @ 09:14 by Sarah Downing CNA) History of esophagogastroduodenoscopy (EGD) H/O abdominal surgery H/O colonoscopy Social History (System 02/15/25 @ 09:14 by Sarah Downing CNA) Patient Tobacco Use Status: Never used Tobacco Review of Systems Const All systems reviewed & are unremarkable except as noted in HPI and below Physical Exam Vital Signs: BMI result Body Mass Index 25.6 Const General: cooperative, healthy appearing and no acute distress Resp Effort & Inspection: normal respiratory effort and able to speak in complete sentences Extrem Other: Left shoulder: Normal to inspection. No ecchymosis, erythema, or edema. 80 degrees forward flexion and abduction. 45 degrees external rotation. Able to reach back pocket. Positive cross-body reach. Unable to assess empty can due to range of motion restriction and pain. NVI. Psych Appearance: grossly normal Mental Status: mental status grossly normal Attitude: cooperative Office Procedures AMB Joint Injection/Aspiration Joint Injection/Aspiration Primary Site: Left Shoulder Prep: site was prepped using aseptic technique, ethochloride spray was applied and injection warnings given Injected: 40 mg of, Decadron, with 3 mL of, 1% plain Lidocaine, 0.25% Bupivacaine and in the subcromial space Approach Used: posterolateral Procedure: The patient tolerated the procedure well, but had some pain with the injection and there was some relief with the local anesthesia Coding 44281 - Large joint Procedure code (CPT) selection complete Assessment & Plan Assessment & Plan (1) Painful arc syndrome of left shoulder: Code(s): M75.102 - Unspecified rotator cuff tear or rupture of left shoulder, not specified as traumatic Category: Medical Plan Ms. Capps is a 79 year-old right hand dominant female who presents to the office today for evaluation of left shoulder pain. She reports that the pain has been present since January. She denies any injury or trauma. However during that time she did sustain a wrist fracture and was likely not using the upper extremity as much and performing motion. She reports that the pain is located along the lateral aspect of the shoulder moves down towards her biceps. Pain is worsened with overhead reaching as well as reaching behind her back. She has been taking Tylenol with no relief. The patient was offered a cortisone injection in the left shoulder. The patient was explained the risks, benefits, and alternatives to receiving this injection. After receiving consent for the injection, the patient had the procedure done while in the office today. The patient tolerated the procedure well with no complications. In addition, I have also placed an order for physical therapy which the patient will attend. Follow-up will be 8 weeks, or sooner if needed X-rays of the left shoulder which were obtained while in the office today and were reviewed by me, Thalia Edward PA-C, revealed no acute fracture or dislocation. Orders: Orders XR shoulder LT min 2V Today M25.519 - Pain in unspecified shoulder Coding Level of Care Code Est Pt Level 3 (29625) Diagnoses Painful arc syndrome of left shoulder M75.102 CPT Codes Coding - 94537 Large joint: 42475 - Large joint ([id number])
--- OUTSIDE RECORDS SUMMARY | 2025-05-13 08:42 | XMS_ITS | Encounter Summary ---
Author Organization [email or web address] Address [address] [facility] [address] [place] [address] Care Team Providers Care Prosthetic Dentist Name Role Phone Mary Campo Primary Care Provider [phone] Reason for Visit * Reason Onset Date Comments chart prep 05/10/2025 Encounter Details Date Type Department Care Team (Late st Contact Info) Description 05/10/2025 Telephone [facility] [address] [place] [address] Mary Campo ANP [address] [place] [address] chart prep Social History Tobacco Use Types Packs/Day Years [...] AM EDT documented as of this encounter Miscellaneous Notes * Telephone Encounter - Nga Ruiz MA - 05/10/2025 8:39 AM EST Chart Prep Labs: not applicable Images: done Referrals: complete Vaccines due: Covid and Flu Screenings: mammogram Overdue care gaps: A1c, Glucose, SBIRT, SDOH, PHQ-9, ANJANA-7, Oral health screening, and Disability screen documented in this encounter Plan of Treatment Not on file documented as of this encounter Visit Diagnoses Not on filedocumented in this encounter Care Teams Prosthetic Dentist Relationship Specialty Start Date End Date Mary Campo ANP [address] [place] [address] PCP - General Family Medicine 02/23/21 documented as of this encounter
--- OUTSIDE RECORDS SUMMARY | 2025-05-13 08:42 | XMS_ITS | Clinical Summary ---
Author Organization [employer] Address [address] [facility] [address] [place] [address] Care Team Providers Care Manager Of Health Name Role Phone Angel Valentin Primary Care Provider Allergies Active Allergy Reactions Criticality Noted Date Comments Hydrochlorothiazide Rash Low 12/23/2018 Other reaction(s): Rash Medications Spacer/Aero-Holding Chambers (OptiChamber Julia) misc 1 each every 4 (four) hours if needed (asthma). 1 each 023 Active atorvastatin (Lipitor) 40 MG tabletIndications:Pure hypercholesterolemia TAKE 1 TABLET BY MOUTH EVERY DAY BEFORE BEDTIME 90 tablet 025 Active lidocaine (Lidoderm) 5 % patchIndications:Close d fracture of left wrist, initial encounter Apply 1 patch topically Once per day. Remove & discard patch within 12 hours or as directed by MD. 30 patch 2 025 2025 Active losartan (Cozaar) 50 MG tabletIndications:Beau gn essential HTN TAKE 1 AND 1/2 TABLETS BY MOUTH IN THE MORNING 45 tablet 1 025 Active Calcium Carb-Cholecalciferol 600-10 MG-MCG tablet Take 1 tablet by mouth 2 times daily. 023 Active pantoprazole (ProtoNix) 40 MG EC tablet Take 1 tablet by mouth 2 times daily. 025 Active senna (Senokot) 8.6 MG tablet Take 2 tablets by mouth at bedtime. Active triamcinolone (Kenalog) 0.1 % creamIndications:Rash Apply twice daily to affected areas as needed for rash/ithcin g 45 g 1 025 Active albuterol (Ventolin HFA) 108 (90 Base) MCG/ACT inhalerIndications:Mil d intermittent asthma without complication INHALE 2 PUFFS BY MOUTH EVERY 4 HOURS NEEDED FOR WHEEZING OR SHORTNESS OF BREATH 6.7 g 1 025 Active aspirin 81 MG EC tabletIndications:Pure hypercholesterolemia,C ardiovascular event risk Take 1 tablet (81 mg) by mouth Once per day. 90 tablet 3 025 2025 Active esomeprazole (NexIUM) [address] capsuleIndications:Gas troesophageal reflux disease, unspecified whether esophagitis present Take 1 capsule (20 mg) by mouth Once daily. 30 capsule 2 023 2024 Discontinued( Duplicate order (will not trigger notification to Pharmacy)) albuterol (Ventolin HFA) 108 (90 Base) MCG/ACT inhaler INHALE 2 PUFFS BY MOUTH EVERY 4 HOURS NEEDED FOR WHEEZING OR SHORTNESS OF BREATH 18 g 1 024 2024 Discontinued( Reorder (will not trigger notification to Pharmacy)) fluticasone furoate (Arnuity Ellipta) 100 MCG/ACT inhalerIndications:Mod erate persistent asthma, unspecified whether complicated INHALE 1 PUFF BY MOUTH ONCE DAILY 30 each 1 024 2024 Discontinued( Therapy completed) Aspirin Low Dose 81 MG chewable tabletIndications:Beau gn essential HTN,Pure hypercholesterolemia CHEW AND SWALLOW 1 TABLET BY MOUTH EVERY MORNING 90 tablet 025 2024 Discontinued losartan (Cozaar) 50 MG tabletIndications:Beau gn essential HTN TAKE 1 AND 1/2 TABLETS BY MOUTH IN THE MORNING 45 tablet 1 025 2024 Discontinued Active Problems Problem Noted Date Diagnosed Date Laryngospasm 05/12/2025 Overview (05/12/2025): Did have laryngospasm s/p anesthesia for C-scope and EGD, had to use BiPAP - note for future sedations. Presbyesophagus 05/12/2025 Overview (05/12/2025): per GI: severe presbyesophagus with non propulsive peristalsis of the esophagus on barium swallow. Mild depression 05/12/2025 Overview (05/12/2025): declines BH today Acute pain of left shoulder 02/08/2025 Assessment [...] Pure hypercholesterolemia 12/24/2011 Allergic rhinitis 06/30/1999 Seizure ([facility]) 06/30/1999 Overview (05/12/2025): >>OVERVIEW FOR SEIZURE DISORDER (CMS/[facility]) ([facility]) WRITTEN ON 05/12/2025 12:38 PM BY ULYSSES BROWN no recent seizure, not on meds Encounters Date Type Department Care Team Description 05/12/2025 10:30 AM EST Office Visit [facility] [address] [place] [phone] Angel Valentin ANP Prediabetes (Primary Dx); Rash; Pure hypercholesterolemia; Hypertensive retinopathy, unspecified laterality; Benign essential HTN; Mild intermittent asthma without complication; Screening mammogram for breast cancer; Closed fracture of left wrist, sequela; Seizure disorder (CMS/HCC) ([facility]); Mild depression; Laryngospasm; Seizure (CMS/HCC) (HCC); Cardiovascular event risk; Presbyesophagus; Exercise counseling; Dietary counseling; Gastroesophageal reflux disease, unspecified whether esophagitis present 05/12/2025 Travel 05/10/2025 Telephone [facility] [address] [place] [phone] Angel Valentin ANP chart prep 05/08/2025 Refill [facility] [address] [place] [address] Angel Valentin ANP Benign essential HTN 04/05/2025 10:20 AM EDT Office Visit [facility] [address] [place] [address] Ajay Alexandra MD Closed fracture of left wrist, sequela (Primary Dx); Closed fracture of left wrist, initial encounter 04/05/2025 Travel 03/17/2025 Refill [facility] [address] [place] [address] Angel Valentin ANP Pure hypercholesterolemia 03/02/2025 Telephone [facility] [address] [place] [phone] Angel Valentin ANP Appointment Request 02/17/2025 Telephone [facility] [address] [place] [phone] Angel Valentin ANP Call Back Request 02/16/2025 Refill [facility] [address] [place] [phone] Angel Valentin ANP Benign essential HTN from Last 3 Months Immunizations Immunization Administration [...] the past 12 months, has t he [employer], gas, oil or water company threatened to [...] Mass Index 25.65 05/12/2025 10:47 AM EST Plan of Treatment Health Maintenance Due Date Last Done Comments Hepatitis C Screening 1963 RSV Patients and Patients Aged 60 years or older (1 - 1-dose 75+ series) 2021 Mammogram 10/08/2023 10/07/2022, 08/29, 09/25/2021, Additional history exists COVID-19 Vaccine ( season) 2025 05/28/2022, 11/13/2021, 05/14/2021, Additional history exists Influenza Vaccine (#1) 2025 , 03/17/2021, 03/10/2020, Additional history exists Alcohol/Substance Use Screening 05/12/2026 05/12/2025 Depression Screening 05/12/2026 05/12/2025, 05/12/20 25 Diabetes: Hemoglobin A1C 05/12/2026 025, 11/18/2022, 05/29/2021, Additional history exists SDOH Screening 05/12/2026 05/12/2025 Tobacco Screening 05/12/2026 05/12/2025 Lipid Panel 11/19/2027 11/18/2022, 05/02, 01/12/2020 DTaP/Tdap/Td [...] GLUCOSE Routine 05/12/2025 10:49 AM EST Prediabetes LIPID PANEL, STANDARD Routine 11/18/2022 9:04 AM EDT Dyslipidemia BI MAMMOGRAM SCREENING TOMOSYNTHESIS BILATERAL Routine 10/07/2022 8:59 AM EDT HM COLONOSCOPY Routine 03/13/2017 4:26 PM EDT from Last 3 Months or Most Recently Relevant to Health Maintenance Results * POCT Hgb A1c (05/12/2025 10:49 AM EST) Hemoglobin A1C 5.5 4.0 - 5.7 % QC Media Lot # [id number] Lot# Expiration Date [id number] Blood 05/12/2025 10:4 9 AM EST [facility] POINT OF CARE TEST ENTER/EDIT OR DERABLES Final Result * POCT Glucose (05/12/2025 10:49 AM EST) Glucose Blood, POC 115 60 - 200 mg/dL QC Media Lot # [id number] Lot# Expiration Date [id number] Blood Capillary blood specimen / Unknown 05/12/2025 10:49 AM EST [facility] POINT OF CARE TEST ENTER/EDIT OR DERABLES Final Result * (ABNORMAL) Lipid Panel, Standard (11/18/2022 9:04 AM EDT) Pathologist [facility] Cholesterol, Total 203(H) <200 mg/dL [facility] HDL Cholesterol 73 > OR = 50 mg/dL [facility] Triglycerides 105 <150 mg/dL [facility] LDL Cholesterol 109(H) mg/dL (calc) [facility] Comment: Reference range: <100 Desirable range <100 mg/dL for primary prevention; <70 mg/dL for patients with CHD or diabetic patients with > or = 2 CHD risk factors. LDL-C is now calculated using the Brayan-Solorzano calculation, which is a validated novel method providing better accuracy than the Friedewald equation in the estimation of LDL-C. Brayan SUAREZ et al. GREG. 2013;310(19): 8398-4467 (http://education.[employer].License Buddy/faq/RTU918) Chol/HDLC Ratio 2.8 <5.0 (calc) [facility] Non-HDL Cholesterol 130(H) <130 mg/dL (calc) [facility] Comment: For patients with diabetes plus 1 major ASCVD risk factor, treating to a non-HDL-C goal of <100 mg/dL (LDL-C of <70 mg/dL) is considered a therapeutic option. Blood Venous blood specimen / Unknown 11/18/2022 9:04 AM EDT 11/18/2022 9:04 AM EDT Narrative [facility] - 11/18/2022 11:01 PM EDT FASTING:YES FASTING: YES Angel Valentin ANP LAB BLOOD ORDERABLES Final Resul t [facility] [address] [facility], [place] [address] [facility] [address] [place] [address] * BI Mammogram Screening Tomosynthesis Bilateral (10/07/2022 8:59 AM EDT) Anatomical Region Laterality Modality Breast Bilateral Mammography 10/07/2022 8:59 AM EDT Narrative 10/08/2022 12:48 PM EDT [facility] [address] [place] [address] Mammography Report Signed Patient: Cindy Powers MR#: [id number] : 1945 Acct:[id number] Age/Sex: 76 / F ADM Date: 10/07/22 Loc: HO.MAMMO Attending Dr: Angel Valentin NP Ordering Physician: ANGEL VALENTIN NP Results: 1Negative Date of Service: 10/07/22 Follow Up: 1 Year From Orig ina Mammogram Procedure(s): MM tomosynthesis screening BI Accession Number(s): [id number] cc: ANGEL VALENTIN NP EXAMINATION: MM SCREENING [...] in OV> 10/08/22 1245 DD/ 0859 TD/TT: Tier Over: MENA Procedure Note Donotuseinterpreter, Image - 10/08/2022 [place] [facility] [address] [place] [address] Mammography Report Signed Patient: Cruzito PowersR#: [id number] : 7Acct:[id number] Age/Sex: 76 / FADM Date: 10/07/22 Loc: HO.MAMMO Attending Dr: Angel Valentin NP Ordering Physician: ANGEL VALENTIN NPResults: 1Negative Date of Service: 10/07/22Follow Up: 1 Year From Orig inal Mammogram Procedure(s): MM tomosynthesis screening BI Accession Number(s): [id number] cc: ANGEL VALENTIN NP EXAMINATION: MM SCREENING [...] in OV> 10/08/22 1245 DD/ 0859 TD/TT: Tier Over: RAJESH [facility] External Provider IMG BI PROCEDURES Final Result * Hm Colonoscopy (03/13/2017 4:26 PM EDT) Historical Provider HEALTH MAINTENANCE Final Result from Last 3 Months or Most Recently Relevant to Health Maintenance Insurance [employer] MEDICARE REPLACEMENT Care Teams Manager Of Health Relationship Specialty Start Date End Date Angel Valentin ANP [address] [place] [phone] PCP - General Family Medicine 02/23/21
--- OUTSIDE RECORDS SUMMARY | 2025-05-13 08:42 | XMS_ITS | Encounter Summary ---
Author Organization [employer] Address [address] [place] [address] 7[address] [place] [address] Care Team Providers Care Gang Drill Press Operator Name Role Phone Mary Campo Primary Care Provider [phone] Encounter Details Date Type Department Care Team (Latest Contact Info) Description 09/21/2021 Abstract [facility] CONVERSIONS Dental, Provider, DDS Social History [...] on filedocumented in this encounter Care Teams Gang Drill Press Operator Relationship Specialty Start Date End Date Mary Campo ANP [address] [place] [phone] PCP - General Family Medicine 02/23/21 documented as of this encounter
--- OUTSIDE RECORDS SUMMARY | 2025-05-13 08:42 | XMS_ITS | Encounter Summary ---
Author Organization [employer] Address [address] [facility] 7t [place] [address] Care Team Providers Care Rag Willow Operator Name Role Phone Mary Campo ULYSSES Primary Care Provider [phone] Reason for Referral * Consultation (Routine) - Pending Review Specialty Diagnoses / Procedures Referred By Jerri pillai Referred To Contact Pharmacy Diagnoses Benign essential HTN Rain Gallardo MD [address] [place] [address] Phone: tel: fax: Referral ID Status Reason Start Date Expiration Date Visits Requested Visits Authorized [id number] Pending Review Continuity of Care 12/20/2024 12/20/2025 6 6 Encounter Details Date Type Department Care Team (Late st Contact Info) Description 12/17/2024 Orders Only [facility] [address] [place] [address] Rain Gallardo MD [address] [place] [address] Benign essential HTN (Primary Dx) Social History [...] as of this encounter Plan of Treatment Scheduled Referrals Name Type Priority Associated Diagnoses Orde r Schedule Referral to Pharmacy MTM Outpatient Referral Routine Benign essential HTN Ordered: 12/20/2024 documented as of this encounter Visit Diagnoses Diagnosis Benign essential HTN- Primary documented in this encounter Care Teams Rag Willow Operator Relationship Specialty Start Date End Date Mary Campo ANP [address] [place] [address] PCP - General Family Medicine 02/23/21 documented as of this encounter
--- OUTSIDE RECORDS SUMMARY | 2025-05-13 08:42 | XMS_ITS | Encounter Summary ---
Author Organization [employer] Address [address] [facility] 7t [place] [address] Care Team Providers Care Counselor Education Professor Name Role Phone Mary Campo Primary Care Provider [phone] Encounter Details Date Type Department Care Team ([facility] st Contact Info) Description 09/16/2023 Orders Only [facility] MED[facility]INE [address] [place] [address] Provider, MD Jessica Social History Tobacco Use [...] on filedocumented in this encounter Care Teams Counselor Education Professor Relationship Specialty Start Date End Date Mary Campo ANP [address] [place] [id number] PCP - General Family Medicine 02/23/21 documented as of this encounter
--- OUTSIDE RECORDS SUMMARY | 2025-05-13 08:42 | XMS_ITS | Encounter Summary ---
Author Organization [employer] Address [address] [facility] 7t [place] [address] Care Team Providers Care Motor Equipment Lieutenant Name Role Phone Mary Campo Primary Care Provider [phone] Encounter Details Date Type Department Care Team (Latest Contact Info) Description 05/12/2025 Travel Social History Tobacco Use Types Packs/Day Years [...] AM EDT documented as of this encounter Functional Status * Over the past 2 weeks, how often have you been bothered by any of the following problems? Question Answer Date of Assessment Author Patient Health Questionnaire -2 Score 0 05/12/2025 10:50 AM Nga Oshea [place] * Little interest or pleasure in doing things Answer Date of Assessment Author Not at all 05/12/2025 10:50 AM Nga Oshea [place] * Feeling down, depressed, or hopeless Answer Date of Assessment Author Not at all 05/12/2025 10:50 AM Nga Oshea [place] * Trouble falling or staying asleep, or sleeping too much Answer Date of Assessment Author Not at all 05/12/2025 10:50 AM Nga Oshea [place] * Feeling tired or having little energy Answer Date of Assessment Author Not at all 05/12/2025 10:50 AM Nga Oshea [place] * Poor appetite or overeating Answer [...] Not difficult at all 05/12/2025 10:50 AM Nga Ansari [place] documented as of this encounter Plan of Treatment Not on file documented as of this encounter Visit Diagnoses Not on filedocumented in this encounter Additional Health Concerns Assessment Noted Time PHQ-9 Depression Total Score: 6 05/12/20 25 10:50 AM EST documented as of this encounter Care Teams Motor Equipment Lieutenant Relationship Specialty Start Date End Date Mary Campo ANP [address] [place] [address] PCP - General Family Medicine 02/23/21 documented as of this encounter
--- OUTSIDE RECORDS SUMMARY | 2025-05-13 08:42 | XMS_ITS | Encounter Summary ---
Author Organization [employer] Address [address] [facility] 7t [place] [address] Care Team Providers Care Upholsterer Helper Name Role Phone Mary Campo Primary Care Provider [phone] Reason for Visit * Reason Comments Med Refill Encounter Details Date Type Department Care Team ([facility] st Contact Info) Description 05/08/2025 Refill [facility] MEDICINE [address] [place], [place] [phone] Mary Campo ANP [address] [place] [address] Benign essential HTN Social History Tobacco Use Types Packs/Day Years [...] this encounter Visit Diagnoses Diagnosis Benign essential HTN documented in this encounter Care Teams Upholsterer Helper Relationship Specialty Start Date End Date Mary Campo ANP [address] [place] [address] PCP - General Family Medicine 02/23/21 documented as of this encounter
[2025-05-13 08:48] VITALS: BMI 25.6
== END 2025-05-13 09:42 | disposition home or self-care (01) ==
LOC: HO.HOS 08:30
PROVIDERS: Visit Provider Physician Assistant
DX: M75.102 Unspecified rotator cuff tear or rupture of left shoulder, not specified as traumatic (principal)
CPT/HCPCS: 20610; 99213

== ENCOUNTER → 2025-05-13 08:33 | Outpatient (BNV) | payer MEDICARE, SELFPAY | PROVIDERS: Visit Provider Radiology Diagnostic Radiology | DX: M19.012 Primary osteoarthritis, left shoulder (principal) | CPT/HCPCS: 73030 ==

== ENCOUNTER 2025-05-13 08:50 | Outpatient (REF) | payer MEDICARE, SELFPAY ==
--- NOTE | ~2025-05-13 | XR_ITS ---
EXAMINATION: XR SHOULDER, LEFT CLINICAL INFORMATION: M25.519 - Pain in unspecified shoulder COMPARISON: February 08, 2025 TECHNIQUE: AP external rotation, Grashey, scapular Y, and axillary views of the left shoulder. FINDINGS: Sclerosis along the articular surface of the acromioclavicular joint and the glenohumeral joint as well as the greater tuberosity of the humerus. No acute cortical disruption or malalignment. No lytic or blastic lesions. No soft tissue calcifications. 3 mm granuloma, left upper lung lobe. XR/XR shoulder LT min 2V IMPRESSION: [id number] degenerative changes without acute fracture or dislocation, left shoulder. Electronically signed by: Kehinde Dee MD 05/13/2025 08:49 AM PETER NAIK
== END 2025-05-13 08:51 | disposition home or self-care (01) ==
LOC: HO.HOSX 08:50
PROVIDERS: Visit Provider Physician Assistant
DX: M75.102 Unspecified rotator cuff tear or rupture of left shoulder, not specified as traumatic (principal); Z79.899 Other long term (current) drug therapy
CPT/HCPCS: 20610; 73030; 99212; J0665; J1100; J2003

== ENCOUNTER 2025-05-23 10:02 | Outpatient (AMB) | payer MEDICARE, SELFPAY ==
--- NOTE | 2025-05-23 10:05 | MHC.OFFVIS ---
Vital Signs 05/23/25 10:07 Height 5 ft 2 in Weight 136 lb 10.986 oz BMI 25.0 BP 138/82 Blood Pressure Location Rt brachial Position Sitting Pulse 83 Pulse Source Pulse Oximeter Pulse Oximetry (%) 98 Oxygen Delivery Method Room Air Intake Visit Reasons: Lung Granuloma Senior Abap Developer Required: Yes Senior Abap Developer Language: Educational Technician Services: Senior Abap Developer Present Senior Abap Developer Name: Anai Underwood LM Allergies No Known Allergies Allergy (Verified 05/23/25 10:11) NOT APPLICABLE HPI HPI Lung Granuloma: Details: Cindy is a pleasant 79 year old female, never smoker, with underlying asthma. She was referred by PCP for pulmonary evaluation after shoulder x-ray demonstrated 3 mm granuloma of CHRISTINA. She denies prior abnormal imaging or recent CXR/chest CT. 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 She endorses remote h/o pneumonia on two separate occasions. The patient has a history of asthma diagnosed in adulthood, with no history of intubation or severe exacerbations requiring hospitalization. The patient reports hoarseness and shortness of breath after speaking a few words, which has been ongoing for many years. She also reports postnasal drip with mucus production, described as or white, and denies any known allergies. She is currently on Flovent and using Albuterol MDI multiple times per day with relief of acute symptoms. She denies any pertinent family history. [facility] Medical History (Updated 05/23/25 @ 10:23 by Jaycee Marvin NP) Asthma Erosive gastritis H. pylori infection Seizure disorder Hypertension GERD (gastroesophageal reflux disease) High cholesterol Polyarthritis Osteoporosis Surgical History (System 02/15/25 @ 09:14 by Sarah Downing CNA) History of esophagogastroduodenoscopy (EGD) H/O abdominal surgery H/O colonoscopy Social History Patient Tobacco Use Status: Never used Tobacco Review of Systems Const Denies chills, Denies excessive sweating, Denies fever(s), Denies headache(s) and Denies night sweats Eyes Denies dry eyes, Denies irritation and Denies itchy eyes ENT Reports Normal hearing present and Denies headache(s) Card Denies chest pain, Denies chest pain at rest, Denies chest pain with activity, Denies claudication, Denies leg edema, Reports dyspnea on exertion, Denies orthopnea and Denies paroxysmal nocturnal dyspnea Resp Denies change in phlegm color, Denies chest congestion, Reports cough, Denies hemoptysis, Denies pain on inspiration, Denies pain with cough, Reports dyspnea on exertion, Denies stridor and Denies wheezing Neuro Reports Normal hearing present and Denies headache(s) Endo Denies excessive sweating Junior/Lymph Denies lymphadenopathy Aller/Immun Denies itchy eyes, Denies seasonal rhinorrhea and Denies wheezing Physical Exam Vital Signs: Last Vital Signs Pulse 83 05/23/25 10:07 BP 138/82 05/23/25 10:07 Pulse Ox 98 05/23/25 10:07 Oxygen Delivery Method Room Air 05/23/25 10:07 BMI result Body Mass Index 25.0 Const General: cooperative, healthy appearing, comfortable, no acute distress, well developed and alert Orientation/consciousness: patient oriented x3 Limitations: no limitations HEENT Head: Yes normal to inspection, Yes normocephalic and Yes atraumatic Ears: hearing grossly normal bilaterally and external ears normal Eyes General: appearance normal, both eyes and all related structures Eyelids: Yes eyelids normal Sclerae: sclerae normal EOM: EOMs intact bilaterally Neck Neck: Yes normal visual inspection and Yes no lymphadenopathy Lymphatic: no lymphadenopathy noted Chest Chest palpation & inspection: normal inspection of the chest Resp Effort & Inspection: normal respiratory effort, able to speak in complete sentences, no audible wheezes, no cough, no stridor, not tachypneic, no tripod positioning and no use of accessory muscles Auscultation: clear to auscultation bilaterally Cardio Jugular venous distension: no JVD Rate: regular rate Rhythm: regular rhythm Skin Other: warm, dry General skin exam: no rashes or lesions noted Neuro General: patient oriented x3 Cranial nerves: Yes Normal hearing present Cognition (Neuro): normal cognition Gait exam (Neuro): Normal gait present Extrem General: Yes normal to inspection, Yes capillary refill normal, Yes no clubbing, cyanosis or edema and Yes no pedal edema Psych Appearance: grossly normal and well kempt Speech and movement: Normal speech and movement present and Clear speech present Affect: normal affect Attitude: cooperative Thought process: Normal thought process present Thought content: Normal thought content present Insight: Good insight present (Psych) Judgement: Good judgement present (Psych) Assessment & Plan Assessment & Plan (1) Asthma: Code(s): J45.909 - Unspecified asthma, uncomplicated Category: Medical (2) Calcified granuloma of lung: Code(s): J98.4 - Other disorders of lung Category: Medical (3) Environmental allergies: Code(s): Z91.09 - Other allergy status, other than to drugs and biological substances Category: Medical Plan Discussed the findings of the chest x-ray, which showed a 3mm CHRISTINA granuloma, discussed in detail the nature of granulomas and recommendations to obtain dedicated CXR with consideration for chest CT to thoroughly evaluate. Patient reports suboptimal control on current regimen, will switch Flovent to Advair in addition to Albuterol MDI PRN. Will send for PFT to assess severity of obstructive defect and recommended allergy testing to explore the cause of the postnasal drip. All questions were answered and patient is in agreement of plan. Will follow up in 6-8 weeks or sooner if needed. Orders: Orders Complete Blood Count Auto Diff Today Z91.09 - Other allergy status, other than to drugs and biological substances Immunoglobulin E Today Z91.09 - Other allergy status, other than to drugs and biological substances XR chest 2V Today J98.4 - Other disorders of lung PFT pulmonary function test Today J45.909 - Unspecified asthma, uncomplicated Resp Allergy Profile Region I Today Z91.09 - Other allergy status, other than to drugs and biological substances Medications: New fluticasone propion-salmeterol 115-21 mcg/actuation (Advair HFA) 2 puffs inhalation Q12H 12 grams 3RF Coding Level of Care Code New Pt Level 4 (83102) Diagnoses Asthma J45.909 Calcified granuloma of lung J98.4 Environmental allergies Z91.09
[2025-05-23 10:07] VITALS: BP 138/82; PULSE 83; O2SAT 98; BMI 25.0
--- OUTSIDE RECORDS SUMMARY | 2025-05-23 12:03 | XMS_ITS | Encounter Summary ---
Author Organization [employer] Address [address] [facility] 7t [place] [address] Care Team Providers Care Assistant Counsel Name Role Phone Mary Campo ULYSSES Primary Care Provider [phone] Reason for Referral * Consultation (Routine) - Pending Review Specialty Diagnoses / Procedures Referred By Jerri pillai Referred To Contact Pharmacy Diagnoses Benign essential HTN Rain Gallardo MD [address] [place] [address] Phone: tel: fax: Referral ID Status Reason Start Date Expiration Date Visits Requested Visits Authorized [id number] Pending Review Continuity of Care 12/20/2024 12/20/2025 6 6 Encounter Details Date Type Department Care Team (Late st Contact Info) Description 12/17/2024 Orders Only [facility] [address] [place] [address] Rain Gallardo MD [address] [place] [address] Benign essential HTN (Primary Dx) Social History [...] Primary documented in this encounter Care Teams Assistant Counsel Relationship Specialty Start Date End Date Mary Campo ANP [address] [place] [address] PCP - General Family Medicine 02/23/21 documented as of this encounter
--- OUTSIDE RECORDS SUMMARY | 2025-05-23 12:03 | XMS_ITS | Encounter Summary ---
Author Organization [employer] Address [address] [facility] 7t [place] [address] Care Team Providers Care Figure Refinisher And Repairer Name Role Phone Mary Campo Primary Care Provider [phone] Encounter Details Date Type Department Care Team ([facility] st Contact Info) Description 09/16/2023 Orders Only [facility] [address] [place] [address] Provider, MD Jessica Social History Tobacco Use [...] on filedocumented in this encounter Care Teams Figure Refinisher And Repairer Relationship Specialty Start Date End Date Mary Campo ANP [address] [place] [phone] PCP - General Family Medicine 02/23/21 documented as of this encounter
--- OUTSIDE RECORDS SUMMARY | 2025-05-23 12:03 | XMS_ITS | Clinical Summary ---
Author Organization [employer] Address [address] [facility] 7t [place] [address] Care Team Providers Care Child Welfare Caseworker Name Role Phone Angel Valentin Primary Care Provider [phone] Allergies Active Allergy Reactions Criticality Noted Date [...] MOUTH IN THE MORNING 45 tablet 1 05/17/20 25 10:27 AM EST 025 Active Calcium Carb-Cholecalciferol 600-10 MG-MCG tablet [...] needed for rash/ithcin g 45 g 1 05/13/20 25 10:23 AM EST Active albuterol (Ventolin HFA) 108 (90 Base) MCG/ACT inhalerIndications:Mil d intermittent asthma without complication INHALE 2 PUFFS BY MOUTH EVERY 4 HOURS NEEDED FOR WHEEZING OR SHORTNESS OF BREATH 6.7 g 1 05/13/20 25 10:23 AM EST Active aspirin 81 MG EC tabletIndications:Pure hypercholesterolemia,C ardiovascular event risk Take 1 tablet (81 mg) by mouth Once per day. 90 tablet 3 05/13/20 25 10:23 AM EST 025 2025 Active esomeprazole (NexIUM) 20 MG [...] Pure hypercholesterolemia 12/24/2011 Allergic rhinitis 06/30/1999 Seizure (CMS/[facility]) 06/30/1999 Overview (05/12/2025): >>OVERVIEW FOR SEIZURE DISORDER (CMS/HCC) ([facility]) WRITTEN ON 05/12/2025 12:38 PM BY ULYSSES BROWN no recent seizure, not on meds Encounters Date Type Department Care Team Description 05/23/[address] [address] Angel Valentin ANP july05/12/2025 10:30 AM EST Office Visit [facility] [address] [place] [address] Angel Valentin ANP Prediabetes (Primary Dx); Rash; Pure hypercholesterolemia; Hypertensive retinopathy, unspecified laterality; Benign essential HTN; Mild intermittent asthma without complication; Screening mammogram for breast cancer; Closed fracture of left wrist, sequela; Seizure disorder (CMS/HCC) (HCC); Mild depression; Laryngospasm; Seizure (CMS/HCC) (HCC); Cardiovascular event risk; Presbyesophagus; Exercise counseling; Dietary counseling; Gastroesophageal reflux disease, unspecified whether esophagitis present 05/12/2025 Travel 05/10/2025 Telephone [facility] [address] [place] [address] Angel Valentin ANP chart prep 05/08/2025 Refill [facility] [address] [place] [address] Angel Valentin ANP Benign essential HTN 04/05/2025 10:20 AM EDT Office Visit [facility] [address] [place] [address] Ajay Alexandra MD Closed fracture of left wrist, sequela (Primary Dx); Closed fracture of left wrist, initial encounter 04/05/2025 Travel 03/17/2025 Refill [facility] [address] [place] [address] Angel Valentin ANP Pure hypercholesterolemia 03/02/2025 Telephone [facility] [address] [place] [address] Angel Valentin ANP Appointment Request from Last 3 Months Immunizations Immunization Administration [...] housing situation today? I have jayeshjunior rashid 05/12/[address] you [...] Media Lot # [id number] Lot# Expiration Date ,[id number] Blood 05/12/2025 10:4 9 AM EST us Angel Valentin ANP POINT OF CARE TEST ENTER/EDIT OR DERABLES Final Result * POCT Glucose (05/12/2025 10:49 AM EST) Glucose Blood, POC 115 60 - 200 mg/dL QC Media Lot # [id number] Lot# Expiration Date [id number] Blood Capillary blood specimen / Unknown 05/12/2025 10:49 AM EST Angel Jahaira ARORA POINT OF CARE TEST ENTER/EDIT OR DERABLES Final Result * (ABNORMAL) Lipid Panel, Standard (11/18/2022 9:04 AM EDT) Pathologist [facility] Cholesterol, Total 203(H) <200 mg/dL [facility] HDL Cholesterol 73 > OR = 50 mg/dL [facility] Triglycerides 105 <150 mg/dL [facility] LDL Cholesterol 109(H) mg/dL (calc) [facility] Comment: Reference range: <100 Desirable range <100 mg/dL for primary prevention; <70 mg/dL for patients with CHD or diabetic patients with > or = 2 CHD risk factors. LDL-C is now calculated using the Brayan-Jeanine calculation, which is a validated novel method providing better accuracy than the Friedewald equation in the estimation of LDL-C. Brayan SUAREZ et al. GREG. 2013;310(19): 1225-1948 (http://education.Nanovi.Harimata/faq/WPD706) Chol/HDLC Ratio 2.8 <5.0 (calc) [facility] Non-HDL Cholesterol 130(H) <130 mg/dL (calc) [facility] Comment: For patients with diabetes plus 1 major ASCVD risk factor, treating to a non-HDL-C goal of <100 mg/dL (LDL-C of <70 mg/dL) is considered a therapeutic option. Blood Venous blood specimen / Unknown 11/18/2022 9:04 AM EDT 11/18/2022 9:04 AM EDT Narrative [facility] - 11/18/2022 11:01 PM EDT FASTING:YES FASTING: YES Angel Valentin ANP LAB BLOOD ORDERABLES Final Resul t [facility] [address] [facility], [place] [address] [facility] [employer] [facility] [address] [place] [address] * BI Mammogram Screening Tomosynthesis Bilateral (10/07/2022 8:59 AM EDT) Anatomical Region Laterality Modality Breast Bilateral Mammography 10/07/2022 8:59 AM EDT Narrative 10/08/2022 12:48 PM EDT [facility] [address] [place] [address] Mammography Report Signed Patient: Cindy Powers MR#: [id number] : 1945 Acct:[id number] Age/Sex: 76 / F ADM Date: 10/07/22 Loc: HO.MAMMO Attending Dr: Angel Valentin NP Ordering Physician: ANGEL VALENTIN NP Results: 1Negative Date of Service: 10/07/22 Follow Up: 1 Year From Orig inal Mammogram Procedure(s): MM tomosynthesis screening BI Accession Number(s): [id number] cc: ANGEL VALENTIN NP EXAMINATION: MM SCREENING [...] in OV> 10/08/22 1245 DD/ 0859 TD/TT: Site Safety Manager: MENA Procedure Note Donotuseinterpreter, Image - 10/08/2022 [facility] [address] [place] [address] Mammography Report Signed Patient: Juan Powers#: [id number] : 7Acct:[id number] Age/Sex: 76 / FADM Date: 10/07/22 Loc: HO.MAMMO Attending Dr: Angel Valentin NP Ordering Physician: ANGEL VALENTIN NPResults: 1Negative Date of Service: 10/07/22Follow Up: 1 Year From Orig inal Mammogram Procedure(s): MM tomosynthesis screening BI Accession Number(s): [id number] cc: ANGEL VALENTIN NP EXAMINATION: MM SCREENING [...] in OV> 10/08/22 1245 DD/ 0859 TD/TT: Site Safety Manager: RAJESH [facility] External Provider IMG BI PROCEDURES Final Result * Hm Colonoscopy (03/13/2017 4:26 PM EDT) Historical Provider HEALTH MAINTENANCE Final Result from Last 3 Months or Most Recently Relevant to Health Maintenance Insurance [employer] MEDICARE REPLACEMENT Care Teams Child Welfare Caseworker Relationship Specialty Start Date End Date Angel Valentin ANP [address] [place] [address] PCP - General Family Medicine 02/23/21
--- OUTSIDE RECORDS SUMMARY | 2025-05-23 12:03 | XMS_ITS | Encounter Summary ---
Author Organization [employer] Address [address] [place] [address] 7t [place] [address] Care Team Providers Care Clinical Education Academic Coordinator Name Role Phone Mary Campo Primary Care Provider [phone] Encounter Details Date Type Department Care Team (Latest Contact Info) Description 09/21/2021 Abstract [facility] CONVERSIONS Dental, Provider, DDS Social History [...] on filedocumented in this encounter Care Teams Clinical Education Academic Coordinator Relationship Specialty Start Date End Date aMry Campo ANP [address] [place] [address] PCP - General Family Medicine 02/23/21 documented as of this encounter
--- OUTSIDE RECORDS SUMMARY | 2025-05-23 12:03 | XMS_ITS | Encounter Summary ---
Author Organization [employer] Address [address] [facility] 7t [place] [address] Care Team Providers Care Sequins Stringer Name Role Phone Mary Campo Primary Care Provider [phone] Reason for Visit * Reason Onset Date Comments july recall 05/23/2025 Encounter Details Date Type Department Care Team (Late st Contact Info) Description 05/23/2025 Telephone [facility] [address] [place] [address] Mary Campo ANP [address] [place] [address] july recall Social History Tobacco Use Types Packs/Day Years [...] Telephone Encounter - Nga Ruiz [place] - 05/23/2025 10:04 AM EST Telephone call to patient to schedule a recall appointment. No answer, Left voicemail to return call to clinic.. Recall letter sent. Visit type: Office visit Appointment notes: f/u cough and HTN Month due: July With: Jahaira Please schedule appointment above if patient returns call documented in this encounter Plan of Treatment Not on file documented as of this encounter Visit Diagnoses Not on filedocumented in this encounter Additional Health Concerns Assessment Noted Time PHQ-9 Depression Total Score: 6 05/12/20 25 10:50 AM EST documented as of this encounter Care Teams Sequins Stringer Relationship Specialty Start Date End Date Mary Campo ANP [address] [place] [address] PCP - General Family Medicine 02/23/21 documented as of this encounter
== END 2025-05-23 10:35 | disposition home or self-care (01) ==
LOC: HO.HPS 10:02
PROVIDERS: PCP Internal Medicine; Referring Provider Internal Medicine; Visit Provider Nurse Practitioner Family
DX: J45.909 Unspecified asthma, uncomplicated (principal); J98.4 Other disorders of lung; Z91.09 Other allergy status, other than to drugs and biological substances
CPT/HCPCS: 99204

== ENCOUNTER → 2025-05-23 10:02 | Outpatient (BNVA) | payer MEDICARE, SELFPAY | PROVIDERS: PCP Internal Medicine; Referring Provider Internal Medicine; Visit Provider Nurse Practitioner Family | DX: J98.4 Other disorders of lung (principal); J45.909 Unspecified asthma, uncomplicated; Z91.09 Other allergy status, other than to drugs and biological substances; Z77.22 Contact with and (suspected) exposure to environmental tobacco smoke (acute) (chronic) | CPT/HCPCS: 99202 ==

== ENCOUNTER 2025-06-03 08:39 | Outpatient (AMB) | payer MEDICARE, SELFPAY ==
--- NOTE | 2025-06-03 08:46 | MHC.OFFVIS ---
Vital Signs 06/03/25 08:48 Height 5 ft 2 in Weight 136 lb BMI 24.9 Intake Visit Reasons: OV- ROM/left wrist distal radius fx DOI 02/04/25 Intake Note: Cindy is a 79 year old right hand dominant female who presents today for a ROM Check status post Left Distal Radius Fracture, DOI: 02/04/25. At her last visit she was advised to remain at a 5 lb weight limit until follow-up, removing her Velcro wrist brace while at rest to work on ROM but wearing it with high-risk daytime activities. She was also advised to continue with occupational therapy. Patient complains of a throbbing sensation on the volar aspect of the hand, primarily when sleeping. She explains she does not sleep with her face on her hand. She has discontinued the use of her Velcro wrist brace. Porcelain Finisher Required: Yes Porcelain Finisher Language: Occupational Therapy Instructor Services: Porcelain Finisher Present Porcelain Finisher Name: ShaanMARU brewer/CASS Allergies No Known Allergies Allergy (Verified 06/03/25 08:55) NOT APPLICABLE HPI HPI OV- ROM/left wrist distal radius fx DOI 02/04/25: Details: Cindy is a 79 year old right hand dominant female who presents today for a ROM Check status post Left Distal Radius Fracture, DOI: 02/04/25. At her last visit she was advised to remain at a 5 lb weight limit until follow-up, removing her Velcro wrist brace while at rest to work on ROM but wearing it with high-risk daytime activities. She was also advised to continue with occupational therapy. Patient complains of a throbbing sensation on the volar aspect of the hand, primarily when sleeping. The patient reports that she has no pain in the wrist, and that the pain that she is experiencing is purely a cramping or throbbing sensation in the palmar aspect of the left hand. She explains she does not sleep with her face on her hand. She has discontinued the use of her Velcro wrist brace. [facility] Medical History (Updated 05/23/25 @ 10:23 by Jaycee Marvin NP) Asthma Erosive gastritis H. pylori infection Seizure disorder Hypertension GERD (gastroesophageal reflux disease) High cholesterol Polyarthritis Osteoporosis Surgical History (System 02/15/25 @ 09:14 by Sarah Downing CNA) History of esophagogastroduodenoscopy (EGD) H/O abdominal surgery H/O colonoscopy Social History Patient Tobacco Use Status: Never used Tobacco Review of Systems Const All systems reviewed & are unremarkable except as noted in HPI and below Physical Exam Vital Signs: BMI result Body Mass Index 24.9 Extrem Other: Patient is alert, oriented, and in no acute distress. Neuro: Normal sensation of the tips of all digits of the left hand at this time Vascular: Cap refill brisk Pain: No tenderness to palpation about the left distal radius No tenderness to palpation of the left anatomical snuffbox or scaphoid tubercle No tenderness to palpation of the left distal ulna No tenderness to palpation of the palmar aspect of the left hand No pain with range of motion in the office today ROM: Patient is able to make a closed fist and extend all digits of the left hand fully and without difficulty Skin: No lacerations or abrasions. General: Edema of the left wrist has resolved No erythema, ecchymosis, evidence of infection Psych: Appears grossly normal Affect normal Attitude cooperative Assessment & Plan Assessment & Plan (1) Fracture of left distal radius: Code(s): S52.502A - Unspecified fracture of the lower end of left radius, initial encounter for closed fracture Category: Medical Plan 1. Left distal radius fracture Date of injury 02/04/2025 Patient is educated about this condition The patient is educated about the typical treatment course for non or minimally displaced fractures, namely splinting, followed by casting, followed by gradual decreasing in immobilization Patient is educated that given the current alignment of her fracture, no operative intervention is indicated at this time Patient states understanding of this 5 lb weight limit in the left hand and wrist until follow-up Patient is educated she should remove this Velcro wrist splint while at rest to work on range of motion of the left wrist, but should wear with high-risk daytime activities Patient is also referred to occupational therapy to begin working on range of motion of the left wrist Follow-up in 4 weeks for [id number] check sooner with any acute concerns Coding Level of Care Code Est Pt Level 3 (14981) Diagnoses Fracture of left distal radius S52.502A
[2025-06-03 08:48] VITALS: BMI 24.9
== END 2025-06-03 09:04 | disposition home or self-care (01) ==
LOC: HO.HOS 08:40
PROVIDERS: PCP Nurse Practitioner Primary Care
DX: S52.502A Unspecified fracture of the lower end of left radius, initial encounter for closed fracture (principal)
CPT/HCPCS: 99213

== ENCOUNTER → 2025-06-03 08:39 | Outpatient (BNVA) | payer MEDICARE, SELFPAY | PROVIDERS: PCP Nurse Practitioner Primary Care | DX: S52.502A Unspecified fracture of the lower end of left radius, initial encounter for closed fracture (principal); X58.XXXA Exposure to other specified factors, initial encounter | CPT/HCPCS: 99212 ==

== ENCOUNTER 2025-06-16 09:30 | Outpatient (REF) | payer MEDICARE, SELFPAY ==
--- NOTE | ~2025-06-16 | XR_ITS ---
EXAMINATION: XR CHEST CLINICAL INFORMATION: J98.4 - Other disorders of lung COMPARISON: None available. TECHNIQUE: 2 views of the chest were obtained. FINDINGS: The cardiac, hilar, and mediastinal contours are normal. The lungs are clear bilaterally. There is a calcified granuloma in the mid to lower left lung. There is no pneumothorax or pleural effusion. There is no focal osseous or soft tissue abnormality. Levoconvex thoracolumbar scoliosis and degenerative spondylosis throughout the spine. Mild to moderate degenerative changes of both shoulder joints. XR/XR chest 2V IMPRESSION: No active pulmonary disease. Electronically signed by: Abilio Vora MD 06/16/2025 10:04 AM [facility]
[2025-06-16 10:10] LABS: MANUAL DIFF FLAG NO
[2025-06-16 10:21] LABS: Hematocrit 36.6 % (37.0-47.0); Hemoglobin 12.0 g/dl (12.0-16.0); Imm Gran Abs Auto 0.01 X10*3/uL (0.00-0.03); Imm Gran Pct Auto 0.2 % (0.0-0.4); Lymphocytes Absolute Auto 1.7 X10*3/uL (1.2-4.9); Mean Corpuscular HGB Conc 32.8 g/dl (31.0-35.0); Mean Corpuscular Hemoglobin 31.3 pg (27.0-33.0); Mean Corpuscular Volume 95.6 fL (80.0-98.0); NRBC Abs Auto 0.000 X10*3/uL (0.0-0.012); NRBC Pct Auto 0.0 /100WBC (0.0-0.2); Platelet Count 239 X10*3/uL (160-400); Red Blood Count 3.83 X10*6/uL (4.20-5.50); White Blood Count 5.7 X10*3/uL (4.8-10.8)
--- OUTSIDE RECORDS SUMMARY | 2025-06-16 10:56 | XMS_ITS | Encounter Summary ---
Author Organization [facility] Address [address] [facility] 7t [place] [address] Care Team Providers Care Printing Bindery Assistant Name Role Phone Mary Camop Primary Care Provider [phone] Encounter Details Date Type Department Care Team (Latest Contact Info) Description 09/21/2021 Abstract [facility] CONVERSIONS Dental, Provider, DDS Social [...] Care Team (Late st Contact Info) Description 08/16/2025 10:15 AM EST Office Visit [facility] [address] [place] [address] Mary Campo ANP [address] [place] [address] documented as of this encounter Visit Diagnoses Not on filedocumented in this encounter Care Teams Printing Bindery Assistant Relationship Specialty Start Date End Date Mary Campo ANP [address] [place] [address] PCP - General Family Medicine 02/23/21 documented as of this encounter
--- OUTSIDE RECORDS SUMMARY | 2025-06-16 10:56 | XMS_ITS | Encounter Summary ---
Author Organization [employer] Address [address] [facility] 7t [place] [address] Care Team Providers Care Promotional Advertising Assistant Name Role Phone Angel Valentin Primary Care Provider Encounter Details Date Type Department Care Team (Late st Contact Info) Description 06/16/2025 Orders Only [facility] External Provider, [facility] Social History Tobacco Use Types Packs/Day Years [...] Description 08/16/2025 10:15 AM EST Office Visit [facility] [address] [place], [place] [phone] Angel Valentin ANP [address] [place], [place] [phone] documented as of this encounter Procedures Procedure Name Priority Date/Time Associated Diagnosis Comments CBC WITH AUTO DIFFERENTIAL Routine 06/16/2025 10:09 AM EST XR CHEST 2 VIEWS Routine 06/16/2025 9:58 AM EST documented in this encounter Results * (ABNORMAL) CBC auto differential (06/16/2025 10:09 AM EST) White Blood Count 5.7 4.8 - 10.8 X10*3/uL [facility] Red Blood Count 3.83(L) 4.20 - 5.50 X10*6/uL [facility] Hemoglobin 12.0 12.0 - 16.0 g/dl [facility] Hematocrit 36.6(L) 37.0 - 47.0 % [facility] Mean Corpuscular Volume 95.6 80.0 - 98.0 fL [facility] Mean Corpuscular Hemoglobin 31.3 27.0 - 33.0 pg [facility] Mean Corpuscular HGB Conc 32.8 31.0 - 35.0 g/dl [facility] Red Cell Distribution Width 12.8 11.0 - 16.0 % [facility] Platelet Count 239 160 - 400 X10*3/uL [facility] Mean Platelet Volume 10.0 9.4 - 12.3 fL [facility] Neutrophils Percent Auto 57.3 45 - 73 % [facility] Imm Gran Pct Auto 0.2 0.0 - 0.4 % [facility] Lymphocytes Percent Auto 30.2 20 - 40 % [facility] Monocytes Percent Auto 8.0 2 - 11 % [facility] Eosinophils Percent Auto 3.8 0 - 4 % [facility] Basophils Percent Auto 0.5 0 - 2 % [facility] NRBC Pct Auto 0.0 0.0 - 0.2 /100WBC [facility] Neutrophils Absolute Auto 3.3 2.0 - 8.3 x10*3/uL [facility] Imm Gran Abs Auto 0.01 0.00 - 0.03 X10*3/uL [facility] Lymphocytes Absolute Auto 1.7 1.2 - 4.9 X10*3/uL [facility] Monocytes Absolute Auto 0.5 0.1 - 1.2 X10*3/uL [facility] Eosinophils Absolute Auto 0.2 0.0 - 0.4 X10*3/uL [facility] Basophils Absolute Auto 0.0 0.0 - 0.2 X10*3/uL [facility] NRBC Abs Auto 0.000 0.0 - 0.012 X10*3/uL [facility] 06/16/2025 10:0 9 AM EST 06/16/2025 10:09 AM EST us Generic External Data Provider LAB BLOOD ORDERAB LES Final Result [facility] [address] [place] [phone] * XR Chest 2 Views (06/16/2025 9:58 AM EST) Anatomical Region Laterality Modality Chest Radiographic Marisol ging 06/16/2025 9:58 AM EST Narrative 06/16/2025 10:07 AM EST [address] [address] XRay Report Signed Patient: Cindy Powers MR#: [id number] : 1945 Acct:[id number] Age/Sex: 79 / F ADM Date: 06/16/25 Loc: HO.LAB Attending Dr: Jaycee Marvin CUSTOMS PORT DIRECTOR Ordering Physician: Jaycee Marvin NP Date of Service: 06/16/25 Procedure(s): XR chest 2V Accession Number(s): [id number] cc: ANGEL VALENTIN CUSTOMS PORT DIRECTOR; Jaycee Marvin NP Reason for Exam: J98.4 - Other disorders of lung EXAMINATION: XR CHEST CLINICAL INFORMATION: J98.4 - Other disorders of lung COMPARISON: None available. TECHNIQUE: 2 views of the chest were obtained. FINDINGS: The cardiac, hilar, and mediastinal contours are normal. The lungs are clear bilaterally. There is a calcified granuloma in the mid to lower left lung. There is no pneumothorax or pleural effusion. There is no focal osseous or soft tissue abnormality. Levoconvex thoracolumbar scoliosis and degenerative spondylosis throughout the spine. Mild to moderate degenerative changes of both shoulder joints. XR/XR chest 2V IMPRESSION: No active pulmonary disease. Electronically signed by: Abilio Vora MD 06/16/2025 10:04 AM [facility] [place]ictated By: Abilio Vora MD Signed By: <Electronically signed by Abilio Vora MD in OV> 06/16/25 1004 DD/ 0958 TD/TT: 06/16/25 0959 E Learning Designer: Procedure Note Donotuseinterpreter, Image - 06/16/[address] [address] XRay Report Signed Patient: Cindy PowersR#: [id number] : 1945cct:[id number] Age/Sex: 79 / FADM Date: 06/16/25 Loc: HO.LAB Attending Dr: Jaycee Marvin CUSTOMS PORT DIRECTOR Ordering Physician: Jaycee Marvin NP Date of Service: 06/16/25 Procedure(s): XR chest 2V Accession Number(s): [id number] cc: ANGEL VALENTIN CUSTOMS PORT DIRECTOR; Jaycee Marvin NP Reason for Exam: J98.4 - Other disorders of lung EXAMINATION: XR CHEST CLINICAL INFORMATION: J98.4 - Other disorders of lung COMPARISON: None available. TECHNIQUE: 2 views of the chest were obtained. FINDINGS: The cardiac, hilar, and mediastinal contours are normal. The lungs are clear bilaterally. There is a calcified granuloma in the mid to lower left lung. There is no pneumothorax or pleural effusion. There is no focal osseous or soft tissue abnormality. Levoconvex thoracolumbar scoliosis and degenerative spondylosis throughout the spine. Mild to moderate degenerative changes of both shoulder joints. XR/XR chest 2V IMPRESSION: No active pulmonary disease. Electronically signed by: Abilio Vora MD 06/16/2025 10:04 AM EST Dictated By: Abilio Vora MD Signed By: <Electronically signed by Abilio Vora MD in OV> 06/16/25 1004 DD/ 0958 TD/TT: 06/16/25 0959 E Learning Designer: [facility] External Provider IMG XR PROCEDURES Edited Result - Final documented in this encounter Visit Diagnoses Not on filedocumented in this encounter Additional Health Concerns Assessment Noted Time PHQ-9 Depression Total Score: 6 05/12/20 25 10:50 AM EST documented as of this encounter Care Teams Promotional Advertising Assistant Relationship Specialty Start Date End Date Angel Valentin ANP [address] [place] [address] PCP - General Family Medicine 02/23/21 documented as of this encounter
--- OUTSIDE RECORDS SUMMARY | 2025-06-16 10:57 | XMS_ITS | Clinical Summary ---
Author Organization [employer] Address [address] [facility] 7t [place] [address] Care Team Providers Care Maid Housekeeper Name Role Phone Angel Valentin Primary Care Provider [phone] Allergies Active Allergy Reactions Criticality Noted Date Comments Hydrochlorothiazide Rash Low 12/23/2018 Other reaction(s): Rash Medications Spacer/Aero-Holding Chambers (OptiChamber Julia) misc 1 each every 4 (four) hours if needed (asthma). 1 each 09/28/19 23 Active atorvastatin (Lipitor) 40 MG tabletIndications:Pure hypercholesterolemia TAKE 1 TABLET BY MOUTH EVERY DAY BEFORE BEDTIME 90 tablet 03/17/20 25 Active lidocaine (Lidoderm) 5 % patchIndications:Closed fracture of left wrist, initial encounter Apply 1 patch topically Once per day. Remove & discard patch within 12 hours or as directed by MD. 30 patch 2 04/05/20 25 026 Active losartan (Cozaar) 50 MG tabletIndications:Benig n essential HTN TAKE 1 AND 1/2 TABLETS BY MOUTH IN THE MORNING 45 tablet 1 5 10:27 AM EST 05/09/20 25 Active Calcium Carb-Cholecalciferol 600-10 MG-MCG tablet Take 1 tablet by mouth 2 times daily. 06/05/20 23 Active pantoprazole (ProtoNix) 40 MG EC tablet Take 1 tablet by mouth 2 times daily. 03/16/20 25 Active senna (Senokot) 8.6 MG tablet Take 2 tablets by mouth at bedtime. Active triamcinolone (Kenalog) 0.1 % creamIndications:Rash Apply twice daily to affected areas as needed for rash/ithcing 45 g 1 5 10:23 AM EST 05/12/20 Active albuterol (Ventolin HFA) 108 (90 Base) MCG/ACT inhalerIndications:Mild intermittent asthma without complication INHALE 2 PUFFS BY MOUTH EVERY 4 HOURS NEEDED FOR WHEEZING OR SHORTNESS OF BREATH 6.7 g 1 5 10:23 AM EST 05/12/20 Active aspirin 81 MG EC tabletIndications:Pure hypercholesterolemia,Ca rdiovascular event risk Take 1 tablet (81 mg) by mouth Once per day. 90 tablet 3 5 10:23 AM EST 05/12/20 25 026 Active Active Problems Problem Noted [...] Pure hypercholesterolemia 12/24/2011 Allergic rhinitis 06/30/1999 Seizure (CMS/HCC) 06/30/1999 Overview (05/12/2025): >>OVERVIEW FOR SEIZURE DISORDER (CMS/HCC) ([facility]) WRITTEN ON 05/12/2025 12:38 PM BY ULYSSES BROWN no recent seizure, not on meds Encounters Date Type Department Care Team Description 06/16/2025 Orders Only [facility] External Provider, [facility] 05/23/2025 Telephone [facility] [address] [place] [phone] Angel Valentin ANP july05/12/2025 10:30 AM EST Office Visit [address] [address] Angel Valentin ANP Prediabetes (Primary Dx); Rash; Pure hypercholesterolemia; Hypertensive retinopathy, unspecified laterality; Benign essential HTN; Mild intermittent asthma without complication; Screening mammogram for breast cancer; Closed fracture of left wrist, sequela; Seizure disorder (CMS/HCC) ([facility]); Mild depression; Laryngospasm; Seizure (CMS/HCC) ([facility]); Cardiovascular event risk; Presbyesophagus; Exercise counseling; Dietary counseling; Gastroesophageal reflux disease, unspecified whether esophagitis present 05/12/2025 Travel 05/10/2025 Telephone [facility] [address] [place] [address] Angel Valentin ANP chart prep 05/08/2025 Refill [facility] [address] [place] [address] Angel Valentin ANP Benign essential HTN 04/05/2025 10:20 AM EDT Office Visit [facility] [address] [address] Ajay Alexandra MD Closed fracture of left wrist, sequela (Primary Dx); Closed fracture of left wrist, initial encounter 04/05/2025 Travel 03/17/2025 Refill [facility] [address] [place] [address] Angel Valentin ANP Pure hypercholesterolemia from Last 3 Months Immunizations Immunization Administration [...] 05/12/2025 10:47 AM EST Plan of Treatment Upcoming Encounters Date Type Department Care Team (Late st Contact Info) Description 08/16/2025 10:15 AM EST Office Visit [facility] [address] [place] [address] Angel Valentin ANP [address] [place], [place] [phone] Health Maintenance Due Date Last Done Comments [...] 2 VIEWS Routine 06/16/2025 9:58 AM EST POCT GLYCATED HEMOGLOBIN, TOTAL Routine 05/12/2025 10:49 AM EST Prediabetes POCT GLUCOSE Routine 05/12/2025 10:49 AM EST Prediabetes LIPID PANEL, STANDARD Routine 11/18/2022 9:04 AM EDT Dyslipidemia BI MAMMOGRAM SCREENING TOMOSYNTHESIS BILATERAL Routine 10/07/2022 8:59 AM EDT HM COLONOSCOPY Routine 03/13/2017 4:26 PM EDT from Last 3 Months or Most Recently Relevant to Health Maintenance Results * (ABNORMAL) CBC auto differential (06/16/2025 10:09 AM EST) White Blood Count 5.7 4.8 - 10.8 X10*3/uL [facility] Red Blood Count 3.83(L) 4.20 - 5.50 X10*6/uL [facility] Hemoglobin 12.0 12.0 - 16.0 g/dl [facility] Hematocrit 36.6(L) 37.0 - 47.0 % [facility] Mean Corpuscular Volume 95.6 80.0 - 98.0 fL [facility] Mean Corpuscular Hemoglobin 31.3 27.0 - 33.0 pg [facility] Mean Corpuscular HGB Conc 32.8 31.0 - 35.0 g/dl [facility] Red Cell Distribution Width 12.8 11.0 - 16.0 % [facility] Platelet Count 239 160 - 400 X10*3/uL [facility] Mean Platelet Volume 10.0 9.4 - 12.3 fL [facility] Neutrophils Percent Auto 57.3 45 - 73 % [facility] Imm Gran Pct Auto 0.2 0.0 - 0.4 % [facility] Lymphocytes Percent Auto 30.2 20 - 40 % [facility] Monocytes Percent Auto 8.0 2 - 11 % [facility] Eosinophils Percent Auto 3.8 0 - 4 % [facility] Basophils Percent Auto 0.5 0 - 2 % [facility] NRBC Pct Auto 0.0 0.0 - 0.2 /100WBC [facility] Neutrophils Absolute Auto 3.3 2.0 - 8.3 x10*3/uL [facility] Imm Gran Abs Auto 0.01 0.00 - 0.03 X10*3/uL [facility] Lymphocytes Absolute Auto 1.7 1.2 - 4.9 X10*3/uL [facility] Monocytes Absolute Auto 0.5 0.1 - 1.2 X10*3/uL [facility] Eosinophils Absolute Auto 0.2 0.0 - 0.4 X10*3/uL [facility] Basophils Absolute Auto 0.0 0.0 - 0.2 X10*3/uL [facility] NRBC Abs Auto 0.000 0.0 - 0.012 X10*3/uL [facility] 06/16/2025 10:0 9 AM EST 06/16/2025 10:09 AM EST us Generic External Data Provider LAB BLOOD ORDERAB LES Final Result [facility] [address] [place] [phone] * XR Chest 2 Views (06/16/2025 9:58 AM EST) Anatomical Region Laterality Modality Chest Radiographic Marisol ging 06/16/2025 9:58 AM EST Narrative 06/16/2025 10:07 AM EST [address] [address] XRay Report Signed Patient: Cindy Powers MR#: [id number] : 1945 Acct:[id number] Age/Sex: 79 / F ADM Date: 06/16/25 Loc: HO.LAB Attending Dr: Jaycee Marvin NP Ordering Physician: Jaycee Marvin NP Date of Service: 06/16/25 Procedure(s): XR chest 2V Accession Number(s): [id number] cc: ANGEL VALENTIN NP; Jaycee Marvin NP Reason for Exam: J98.4 [...] by: Abilio Vora MD 06/16/2025 10:04 AM [facility] Dictated By: Abilio Vora MD Signed By: <Electronically signed by Abilio Vora MD in OV> 06/16/25 1004 DD/ 0958 TD/TT: 06/16/25 0959 Home Economist: Procedure Note Donotuseinterpreter, Image - 06/16/[address] [address] XRay Report Signed Patient: Cindy PowersR#: [id number] : 1945cct:[id number] Age/Sex: 79 / FADM Date: 06/16/25 Loc: HO.LAB Attending Dr: Jaycee Marvin NP Ordering Physician: Jaycee Marvin NP Date of Service: 06/16/25 Procedure(s): XR chest 2V Accession Number(s): [id number] cc: ANGEL VALENTIN NP; Jaycee Marvin NP Reason for Exam: J98.4 [...] 06/16/25 1004 DD/ 0958 TD/TT: 06/16/25 0959 Home Economist: [facility] External Provider IMG XR PROCEDURES Edited Result - Final * POCT Hgb A1c (05/12/2025 10:49 AM EST) Hemoglobin A1C 5.5 4.0 - 5.7 % QC Media Lot # [id number] Lot# Expiration Date 5, Blood 05/12/2025 10:4 9 AM EST Angel Valentin ANP POINT OF CARE TEST ENTER/EDIT OR DERABLES Final Result * POCT Glucose (05/12/2025 10:49 AM EST) Glucose Blood, POC 115 60 - 200 mg/dL QC Media Lot # [id number] Lot# Expiration Date 3,026 Blood Capillary blood specimen / Unknown 05/12/2025 10:49 AM EST Angel Valentin ANP POINT OF CARE TEST ENTER/EDIT OR DERABLES Final Result * (ABNORMAL) Lipid Panel, Standard (11/18/2022 9:04 AM EDT) Cholesterol, Total 203(H) <200 mg/dL [facility] HDL Cholesterol 73 > OR = 50 mg/dL [facility] Triglycerides 105 <150 mg/dL [facility] LDL Cholesterol 109(H) mg/dL (calc) [facility] Comment: Reference range: <100 Desirable range <100 mg/dL for primary prevention; <70 mg/dL for patients with CHD or diabetic patients with > or = 2 CHD risk factors. LDL-C is now calculated using the Antonia calculation, which is a validated novel method providing better accuracy than the Friedewald equation in the estimation of LDL-C. Brayan SAUREZ et al. GREG. 2013;310(19): 1339-0629 (http://education.[employer]/faq/RUJ753) Chol/HDLC Ratio 2.8 <5.0 (calc) [facility] Non-HDL Cholesterol 130(H) <130 mg/dL (calc) [facility] Comment: For patients with diabetes plus 1 major ASCVD risk factor, treating to a non-HDL-C goal of <100 mg/dL (LDL-C of <70 mg/dL) is considered a therapeutic option. Blood Venous blood specimen / Unknown 11/18/2022 9:04 AM EDT 11/18/2022 9:04 AM EDT Narrative [facility] - 11/18/2022 11:01 PM EDT FASTING:YES FASTING: YES Critical access hospital LAB BLOOD ORDERABLES Final Resul t [facility] [address], [place] [address] [facility] [employer] [facility] [address] [place] [address] * BI Mammogram Screening Tomosynthesis Bilateral (10/07/2022 8:59 AM EDT) Anatomical Region Laterality Modality Breast Bilateral Mammography 10/07/2022 8:59 AM EDT Narrative 10/08/2022 12:48 PM EDT [address] [place] [address] Mammography Report Signed Patient: Cindy Powers MR#: [id number] : 1945 Acct:[id number] Age/Sex: 76 / F ADM Date: 10/07/22 Loc: HO.MAMMO Attending Dr: Angel Valentin NP Ordering Physician: ANGEL VALENTIN NP Results: 1Negative Date of Service: 10/07/22 Follow Up: 1 Year From Orig inal Mammogram Procedure(s): MM tomosynthesis screening BI Accession Number(s): [id number] cc: ANGEL VALENTIN NP EXAMINATION: MM SCREENING [...] in OV> 10/08/22 1245 DD/ 0859 TD/TT: Home Economist: MENA Procedure Note Donotuseinterpreter, Image - 10/08/2022 [facility] [address] [place], [place] [address] Mammography Report Signed Patient: Juan Powers#: [id number] : 7Acct:[id number] Age/Sex: 76 / FADM Date: 10/07/22 Loc: HO.MAMMO Attending Dr: Angel Valentin NP Ordering Physician: ANGEL VALENTIN NPResults: 1Negative Date of Service: 10/07/22Follow Up: 1 Year From Orig inal Mammogram Procedure(s): MM tomosynthesis screening BI Accession Number(s): [id number] cc: ANGEL VALENTIN NP EXAMINATION: MM SCREENING [...] in OV> 10/08/22 1245 DD/ 0859 TD/TT: Home Economist: RAJESH [facility] External Provider IMG BI PROCEDURES Final Result * Hm Colonoscopy (03/13/2017 4:26 PM EDT) Historical Provider HEALTH MAINTENANCE Final Result from Last 3 Months or Most Recently Relevant to Health Maintenance Insurance [employer] MED[employer]ARE REPLACEMENT Care Teams Maid Housekeeper Relationship Specialty Start Date End Date Angel Valentin ANP [address] [place] [phone] PCP - General Family Medicine 02/23/21
--- OUTSIDE RECORDS SUMMARY | 2025-06-16 10:57 | XMS_ITS | Encounter Summary ---
Author Organization [employer] Address [address] [facility] 7t [place] [address] Care Team Providers Care Door Clamp Operator Name Role Phone Mary Campo Primary Care Provider [phone] Reason for Referral * Consultation (Routine) - Pending Review Specialty Diagnoses / Procedures Referred By Jerri pillai Referred To Contact Pharmacy Diagnoses Benign essential HTN Rain Gallardo MD [address] [place] [address] Phone: tel: fax: Referral ID Status Reason Start Date Expiration Date Visits Requested Visits Authorized [id number] Pending Review Continuity of Care 12/20/2024 12/20/2025 6 6 Encounter Details Date Type Department Care Team (Late st Contact Info) Description 12/17/2024 Orders Only [facility] [address] [place] [address] Rain Gallardo MD [address] [place] [address] Benign essential HTN (Primary Dx) Social History [...] Description 08/16/2025 10:15 AM EST Office Visit [facility] [address] [place] [phone] Mary Campo ANP [address] [place] [phone] Scheduled Referrals Name Type Priority Associated Diagnoses Orde r Schedule Referral to Pharmacy MTM Outpatient Referral Routine Benign essential HTN Ordered: 12/20/2024 documented as of this encounter Visit Diagnoses Diagnosis Benign essential HTN- Primary documented in this encounter Care Teams Door Clamp Operator Relationship Specialty Start Date End Date Mary Campo ANP [address] [place] [phone] PCP - General Family Medicine 02/23/21 documented as of this encounter
--- OUTSIDE RECORDS SUMMARY | 2025-06-16 10:57 | XMS_ITS | Encounter Summary ---
Author Organization [employer] Address [address] [facility] 7t [place] [address] Care Team Providers Care Cardiology Coordinator Name Role Phone Mary Campo Primary Care Provider [phone] Encounter Details Date Type Department Care Team ([facility] st Contact Info) Description 09/16/2023 Orders Only [facility] [address] [place], [place] [phone] Provider, MD Jessica Social History Tobacco Use [...] Description 08/16/2025 10:15 AM EST Office Visit [facility] [address] [place] [address] Mary Campo ANP [address] [place] [address] documented as of this encounter Procedures Procedure Name Priority Date/Time Associated Diagnosis Comments HM COLONOSCOPY Routine 03/13/2017 4:26 PM EDT documented in this encounter Results * Hm Colonoscopy (03/13/2017 4:26 PM EDT) Historical Provider HEALTH MAINTENANCE Final Result documented in this encounter Visit Diagnoses Not on filedocumented in this encounter Care Teams Cardiology Coordinator Relationship Specialty Start Date End Date Mary Campo ANP [address] [place] [address] PCP - General Family Medicine 02/23/21 documented as of this encounter
[2025-06-18 03:03] LABS: Class Alternaria alternata 0; Class Aspergillus fumigatus 0; Class Bermuda Grass 0; Class Birch 2; Class Cat Dander 0; Class Cladosporium herbarum 0; Class Cockroach 0; Class Common Ragweed 0; Class Cottonwood 0; Class Derm. pterony 0; Class Dermatophagoides farinae 0; Class Dog Dander 0; Class Elm 0; Class Maple Box Elder 0; Class Mountain Cedar 0; Class Mouse Urine Protein 0; Class Mugwort 0; Class Oak 2; Class Penicillium crysogenum 0; Class Rough Pigweed 0; Class Sheep Sorrel 0; Class Sycamore 0; Class Timothy Grass 0; Class Walnut Tree 0; Class White Ash 0; Class White Mulberry 0; D002 - IgE D farinae <0.10 kU/L; E001 - IgE Cat Dander <0.10 kU/L; E005 - IgE Dog Dander <0.10 kU/L; G006 - IgE Timothy Grass <0.10 kU/L; I006-IgE Cockroach, German <0.10 kU/L; M002 - IgE Cladosporium herbar <0.10 kU/L; M003 - IgE Aspergillus fumigat <0.10 kU/L; M006 - IgE Alternaria alternat <0.10 kU/L; T001 IgE Maple/Box Elder <0.10 kU/L; T006 - IgE Cedar, Mountain <0.10 kU/L; T007 - IgE Oak, White 0.78 kU/L; T008 IgE Elm, American <0.10 kU/L; T010 - IgE Walnut <0.10 kU/L; T011 - IgE Maple Leaf Sycamore <0.10 kU/L; T014 - IgE Cottonwood <0.10 kU/L; T015 - IgE Ash, White <0.10 kU/L; T070 - IgE White Mulberry <0.10 kU/L; W001 - IgE Ragweed, Short <0.10 kU/L; W006 - IgE Mugwort <0.10 kU/L; W014 IgE Pigweed, Common <0.10 kU/L; W018 IgE Sheep Sorrel <0.10 kU/L
== END 2025-06-16 09:31 | disposition home or self-care (01) ==
LOC: HO.LAB 09:30
PROVIDERS: PCP Nurse Practitioner Primary Care; Visit Provider Nurse Practitioner Family
DX: J98.4 Other disorders of lung (principal); Z91.09 Other allergy status, other than to drugs and biological substances
CPT/HCPCS: 36415; 71046; 82785; 85025; 86003

== ENCOUNTER → 2025-06-16 09:37 | Outpatient (BNV) | payer MEDICARE, SELFPAY | PROVIDERS: PCP Nurse Practitioner Primary Care; Visit Provider Radiology Diagnostic Radiology | DX: J98.4 Other disorders of lung (principal) | CPT/HCPCS: 71046 ==